=== PATIENT | female | born 1970 | race Caucasian/White ===

== ENCOUNTER 2017-09-17 16:52 | Inpatient (IN) ==
[2017-09-17] MEDS ORDERED: Ipratropium/Albuterol Neb 3 ML IH ONE (17:07)
[2017-09-17] MEDS ORDERED: *HR* OxyCODONE/APAP 5/325 TABLET PO ONE (17:10)
--- NOTE | 2017-09-17 17:12 | Emergency Department Note ---
Disposition Clinical Impression: Acute exacerbation of chronic obstructive airways disease Disposition: Admitted As Inpatient Condition: Fair Referrals: Modesto Dee DO [Primary Care Provider] - Forms: ED Satisfaction Letter Time of Disposition: 18:27 SOB HPI - General Chief Complaint: ED Shortness of Breath/Dyspnea Stated Complaint: Possible pneumonia Time Seen by Provider: 09/17/17 17:06 Source: patient Mode of arrival: wheelchair Limitations: no limitations Nursing Notes Reviewed: Yes Vital Signs Reviewed: Yes - History of Present Illness 47-year-old female who has a history of diabetes and COPD comes in with increasing wheezing cough congestion. She has had some wheezing. [facility] at [facility] and brought over directly for evaluation. Pt Subjective Complaint: shortness of breath, cough Onset (ago): day(s) Context: recent illness Severity: moderate Consistency/Duration: constant Improves with: nothing Worsens with: exertion Known history of: COPD Associated symptoms: Reports: fever, cough, wheezing Treatment prior to arrival: none Cough present: Yes Cough Description: Involuntary Cough Frequency: Intermittent Sputum production: Yes - Related Data Home Medications Medication Instructions Recorded Confirmed Calcium Carbonate/Vitamin D3 1 each PO BID 12/24/15 08/09/16 [Calcium 500-Vit D3 400 Tablet] Ferrous Sulfate 325 mg PO DAILY 12/24/15 08/09/16 Furosemide [Lasix] 40 mg PO DAILY 12/24/15 08/09/16 Gabapentin [Neurontin] 100 mg PO TID 12/24/15 08/09/16 Gemfibrozil [Lopid] 600 mg PO BIDWM 12/24/15 08/09/16 Oxybutynin [Ditropan] 5 mg PO BID 12/24/15 08/09/16 Ranitidine HCl [Zantac] 150 mg PO BID 12/24/15 08/09/16 Sertraline [Zoloft] 100 mg PO DAILY 12/24/15 08/09/16 Sitagliptin Phos/Metformin HCl 1 each PO BID 12/24/15 08/09/16 [Janumet Xr 50-1,000 mg Tablet] Buspirone HCl [Buspar] 10 mg PO BID 02/18/16 08/09/16 traZODone [TraZODone] 75 mg PO HS 02/18/16 08/09/16 Previous Rx's Medication Instructions Recorded Docusate [Colace] 100 mg PO DAILY #30 capsule 02/20/16 Ibuprofen [Motrin] 800 mg PO Q8HR #50 tablet 02/20/16 Albuterol Sulfate [Albuterol 2 puff IH Q6HR #1 hfa.aer.ad 08/10/16 Inhaler] Fluticasone/Salmeterol [Advair 1 each IH BID 30 Days blst.w.dev 08/10/16 250-50 Diskus] HYDROcodone/Acet 5/325 mg [[place] 1 tab PO Q6H PRN #20 tab 08/10/16 5-325 mg] Naproxen [Naprosyn] 500 mg PO BID PRN #20 tablet 08/22/16 Nitrofurantoin (BID) [Macrobid] 100 mg PO BID #14 capsule 10/15/16 Ketoconazole [Nizoral] 400 mg PO DAILY #14 tablet 12/01/16 Cyclobenzaprine [Flexeril] 10 mg PO TID #15 tablet 08/20/17 Promethazine [Phenergan] 25 mg PO Q6HR PRN #10 tablet 08/20/17 Allergies Allergy/AdvReac Type Severity Reaction Status Date / Time No Known Allergies Allergy Verified 09/17/17 16:58 All systems ED: reviewed and negative except as stated. Constitutional: Denies: fever, chills, weakness, weight change Eyes: Denies: eye pain, eye discharge, vision change ENT ED: Denies: ear pain, throat pain, dental pain, hearing loss, epistaxis, congestion, dysphagia Cardiovascular: Denies: chest pain, palpitations, dyspnea on exertion, edema, syncope Respiratory: Reports: cough, dyspnea. Denies: wheezes, hemoptysis, stridor Gastrointestinal: Denies: abdominal pain, nausea, vomiting, diarrhea, constipation, hematemesis, melena, hematochezia Genitourinary: Denies: dysuria, frequency, hematuria, discharge Musculoskeletal: Denies: back pain, neck pain, arthralgia, myalgia Integumentary: Denies: rash, abrasion, lesions Neurological: Denies: headache, weakness, numbness, paresthesias, confusion, abnormal gait, vertigo Psychiatric: Denies: anxiety, depression, suicidal thoughts, homicidal thoughts , auditory hallucinations, visual hallucinations Endocrine: Denies: fatigue Hematological/Lymphatic: Denies: easy bleeding, easy bruising Allergic/Immunologic: Denies: facial swelling, urticaria Past Medical History - Past Medical History Medical history: Reports: CHF, COPD, coronary artery disease, diabetes, hyperlipidemia, hypertension, other Surgical history: Reports: appendectomy, breast surgery (Right breast biopsy.), cholecystectomy, herniorrhaphy, sinus surgery (Tonsillectomy adenoidectomy. Teeth extractions.), other (Colonoscopy.) Psychiatric history: Reports: anxiety, depression, other OCCUPATIONAL HEALTH PHYSIOTHERAPIST history: Reports: no OCCUPATIONAL HEALTH PHYSIOTHERAPIST history - Social History Smoking Status: Current every day smoker Smokeless Tobacco Status: No Alcohol use: Reports: rarely Drug use: Reports: none Physical Exam - General Limitations: no limitations General appearance: alert - Head Head exam: atraumatic, normocephalic, normal inspection - Eye Eye exam: Present: normal appearance, PERRL, EOMI - ENT ENT exam: normal exam, normal oropharynx, mucous membranes moist - Neck Neck exam: Present: normal inspection, full ROM, trachea midline - Chest Chest inspection: Present: normal inspection, symmetric chest wall rise - Respiratory Respiratory exam: Present: respiratory distress, wheezes - Cardiovascular Cardiovascular exam: Present: regular rate, normal rhythm, normal heart sounds - Abdominal Exam Abdominal exam: Present: soft, Non-Tender. Absent: tenderness, distention, guarding, rebound, rigidity - Extremities Exam Extremities exam: Present: normal inspection, full ROM. Absent: tenderness, pedal edema - Expanded Lower Extremity Exam Gait: observed and normal - Back Exam Back exam: Present: normal inspection, full ROM. Absent: tenderness - Neurological Exam Neurological exam: Present: alert, oriented X3 - Psychiatric Psychiatric exam: Present: normal affect, normal mood - Skin Skin exam: Present: warm, dry, intact, normal color Course - Reevaluation(s) Reevaluation #1: 47-year-old with a history of COPD comes in with increasing shortness of breath. Patient was seen in the family doctor's office and brought straight over with audible wheezing on arrival. Chest x-ray was negative for pneumonia. Time: 18:25 - Consultations Consultation #1: Discussed with , admit Time: 18:26 Vital Signs Temperature 97.5 F L 09/17/17 16:53 Pulse Rate 94 09/17/17 16:53 Respiratory Rate 24 09/17/17 16:53 Blood Pressure 121/84 09/17/17 16:53 O2 Sat by Pulse Oximetry 97 09/17/17 16:53 Temperature 97.5 F L 09/17/17 16:53 Pulse Rate 88 09/17/17 17:17 Respiratory Rate 22 09/17/17 17:17 Blood Pressure 108/86 09/17/17 17:17 O2 Sat by Pulse Oximetry 98 09/17/17 17:17 Oxygen Delivery Oxygen Delivery Room Air Shortness of Breath/Dyspnea - Lab Data Lab results reviewed: Yes I reviewed the patient's lab results. Result diagrams: 09/17/17 17:31 09/17/17 17:31 Lab Results 09/17/17 09/17/17 09/17/17 Range/Units 17:31 17:31 17:31 WBC 9.1 (4.3-11.1) K/mcL RBC 4.58 (3.82-4.97) M/mcL Hgb 12.9 (11.5-15.4) g/dL Hct 40.9 (35.3-44.9) % MCV 89.3 (83.0-100.0) fL MCH 28.2 (28.0-33.3) pg MCHC 31.5 L (31.6-35.5) g/dL RDW 13.7 (11.5-14.5) % Plt Count 258 (140-400) K/mcL MPV 10.9 (9.4-12.4) fL Immature Gran % 0.3 (0-4) % Seg Neutrophils % 64.8 % Lymphocytes % 24.9 % Monocytes % 8.0 % Eosinophils % 1.6 % Basophils % 0.4 % Neutrophils # 5.9 (1.6-8.9) K/mcL Lymphocytes # 2.3 (0.6-4.6) K/mcL Monocytes # 0.7 (0.0-1.3) K/mcL Eosinophils # 0.2 (0.0-0.6) K/mcL Basophils # 0.0 (0.0-0.2) K/mcL Sodium 139 (136-145) mEq/L Potassium 3.9 (3.5-4.5) mEq/L Chloride 101 (98-109) mEq/L Carbon Dioxide 24 (19-29) mEq/L BUN 22 H (7-20) mg/dL Creatinine 0.88 (0.57-1.11) mg/dL Est GFR ( Amer) > 60 (> 60) Est GFR (Non-Af Amer) > 60 (> 60) BUN/Creatinine Ratio 25 (6-26) Glucose 152 H (70-99) mg/dL Calculated Osmolality 294 (280-300) Lactic Acid 1.5 (0.5-2.2) mmol/L Calcium 10.2 (8.6-10.8) mg/dL Troponin I (0-0.03) ng/mL B-Natriuretic Peptide (0-100) pg/mL 09/17/17 09/17/17 Range/Units 17:31 17:31 WBC (4.3-11.1) K/mcL RBC (3.82-4.97) M/mcL Hgb (11.5-15.4) g/dL Hct (35.3-44.9) % MCV (83.0-100.0) fL MCH (28.0-33.3) pg MCHC (31.6-35.5) g/dL RDW (11.5-14.5) % Plt Count (140-400) K/mcL MPV (9.4-12.4) fL Immature Gran % (0-4) % Seg Neutrophils % % Lymphocytes % % Monocytes % % Eosinophils % % Basophils % % Neutrophils # (1.6-8.9) K/mcL Lymphocytes # (0.6-4.6) K/mcL Monocytes # (0.0-1.3) K/mcL Eosinophils # (0.0-0.6) K/mcL Basophils # (0.0-0.2) K/mcL Sodium (136-145) mEq/L Potassium (3.5-4.5) mEq/L Chloride (98-109) mEq/L Carbon Dioxide (19-29) mEq/L BUN (7-20) mg/dL Creatinine (0.57-1.11) mg/dL Est GFR ( Amer) (> 60) Est GFR (Non-Af Amer) (> 60) BUN/Creatinine Ratio (6-26) Glucose (70-99) mg/dL Calculated Osmolality (280-300) Lactic Acid (0.5-2.2) mmol/L Calcium (8.6-10.8) mg/dL Troponin I 0.00 (0-0.03) ng/mL B-Natriuretic Peptide 51 (0-100) pg/mL - EKG Data EKG attestation: Yes I reviewed and interpreted this EKG. EKG shows normal: Reports: sinus rhythm Rate: Reports: normal Rhythm: Reports: NSR Interpretation: Reports: no acute changes
[2017-09-17 17:39] LABS: Basophils % 0.4 %; Eosinophils # 0.2 K/mcL (0.0-0.6); Eosinophils % 1.6 %; Hematocrit 40.9 % (35.3-44.9); Hemoglobin 12.9 g/dL (11.5-15.4); Immature Granulocytes % 0.3 % (0-4); Lymphocytes # 2.3 K/mcL (0.6-4.6); Lymphocytes % 24.9 %; Mean Corpuscular HGB Conc 31.5 g/dL (31.6-35.5); Mean Corpuscular Hemoglobin 28.2 pg (28.0-33.3); Mean Corpuscular Volume 89.3 fL (83.0-100.0); Mean Platelet Volume 10.9 fL (9.4-12.4); Monocytes # 0.7 K/mcL (0.0-1.3); Neutrophils # 5.9 K/mcL (1.6-8.9); Platelet Count 258 K/mcL (140-400); Red Blood Count 4.58 M/mcL (3.82-4.97); Red Cell Distribution Width 13.7 % (11.5-14.5); Segmented Neutrophils % 64.8 %
[2017-09-17 17:53] LABS: BUN/Creatinine Ratio 25 (6-26); Blood Urea Nitrogen 22 mg/dL (7-20); Calcium 10.2 mg/dL (8.6-10.8); Carbon Dioxide 24 mEq/L (19-29); Chloride 101 mEq/L (98-109); Glucose 152 mg/dL (70-99); Osmolality,Calculated 294 (280-300); Potassium 3.9 mEq/L (3.5-4.5); Sodium 139 mEq/L (136-145); eGFR For African Americans > 60 (> 60); eGFR For Non-African Americans > 60 (> 60)
[2017-09-17] MEDS ORDERED: methylPREDNISolone 125 MG/2 ML VIAL IVP ONE (18:25)
[2017-09-17] MEDS ORDERED: Ondansetron 4 MG/2 ML VIAL IVP PRN (22:02)
[2017-09-17] MEDS ORDERED: Naloxone 0.4 MG/ML INJ IVP PRN (22:02)
[2017-09-17] MEDS ORDERED: Acetaminophen 325 MG TABLET PO PRN (22:02)
[2017-09-17] MEDS ORDERED: Benzonatate 100 MG CAPSULE PO PRN (22:08)
[2017-09-17] MEDS ORDERED: Dextrose Gel 15 GM PO PRN ×2 (22:11)
[2017-09-17] MEDS ORDERED: D5% in Water 1,000 ML IVC PRN (22:11)
[2017-09-17] MEDS ORDERED: *HR* Dextrose 50 % in Water (Syg) 50 ML SYRINGE IVP PRN (22:11)
[2017-09-17] MEDS ORDERED: MOM Conc 10 ML UD.LIQ PO PRN (22:11)
[2017-09-17] MEDS ORDERED: traZODone 50 MG TABLET PO PRN (22:11)
[2017-09-17] MEDS ORDERED: Neosporin OINT 15 GM TUBE TP PRN (22:11)
[2017-09-17] MEDS ORDERED: Insulin LISPRO 300 UNITS/3 ML VIAL SQ SCH (22:15)
--- NOTE | 2017-09-17 22:59 | Internal Med History&Physical ---
Date of Encounter: 09/17/17 Time of Encounter: 20:30 Assessment and Plan (1) Acute exacerbation of chronic obstructive airways disease Current visit: Yes Status: Acute Acute exacerbation of COPD. Pt. reports previous hx of same sx of N/V, SOB, dyspnea, abdominal pain from coughing, cough. and diarrhea. Supplemental O2 w/ titration and SpO2 monitoring. DuoNebs Q4 scheduled. Solu-Medrol 60 mg every 8. Tessalon 200 mg 3 times a day for cough. Continuous cardiac telemetry. IVPB azithromycin for infection coverage. Patient to be monitored closely for signs of increasing respiratory and/or cardiac distress. Pt. is at high risk for respiratory distress/failure and further morbidity based on current sx, hx, and risk factors. Inpatient. (2) Cellulitis of both lower extremities Current visit: Yes Status: Chronic Patient presents with chronic bilateral cellulitis of LEs that is scabbing and in healing process. Erythema present. Wound culture ordered. Daily wound care. Wound Consult ordered. Will administer abx based on culture results and/or Wound Care consult directives. Stair-step pain medication for pain management. (3) HLD (hyperlipidemia) Current visit: Yes Status: Chronic Hx of chronic HLD. Lipid panel in a.m. labs. Continue Lopid. Qualifiers: Hyperlipidemia type: pure hypercholesterolemia Qualified Code(s): E78.00 - Pure hypercholesterolemia, unspecified; E78.0 - Pure hypercholesterolemia (4) HTN (hypertension) Current visit: Yes Status: Chronic Hx of chronic HTN. Pt. currently does not take HTN medications. Monitor patient' s vital signs. Will add lisinopril if patient becomes hypertensive. Qualifiers: Hypertension type: essential hypertension Qualified Code(s): I10 - Essential (primary) hypertension (5) CAD (coronary artery disease) Current visit: Yes Status: Chronic Hx of chronic CAD. Continuous cardiac telemetry. Will continue patient's aspirin therapy and Lopid. Qualifiers: Coronary Disease-Associated Artery/Lesion type: [place] artery [place] vs. transplanted heart: [place] heart Associated angina: angina presence unspecified Qualified Code(s): I25.10 - Atherosclerotic heart disease of [place] coronary artery without angina pectoris (6) GERD (gastroesophageal reflux disease) Current visit: Yes Status: Chronic Hx of chronic GERD. IVP Zofran every 8 when necessary. IVP Protonix 40 mg daily. Qualifiers: Esophagitis presence: esophagitis presence not specified Qualified Code(s) : K21.9 - Gastro-esophageal reflux disease without esophagitis (7) Type 2 diabetes mellitus Current visit: Yes Status: Chronic Hx of chronic diabetes controlled w/insulin. We will continue patient's at bedtime insulin and add low-dose correction insulin sliding scale with hypoglycemic protocol. BG checks before meals and at bedtime. A1c in a.m. labs Qualifiers: Diabetes mellitus complication status: with unspecified complications Diabetes mellitus fpc insulin use: without exterminator termite use Qualified Code( s): E11.8 - Type 2 diabetes mellitus with unspecified complications (8) DVT prophylaxis Current visit: Yes Status: Acute Heparin 5,000 units SQ Q8 for DVT prophylaxis. Internal Medicine - H&P: HPI Chief complaint: SOB/Dyspnea Admitted From: Emergency Dept Plans for Post Hospital Care: Home History of present illness: Ms. Paul is a 47 year old female with medical history of CHF, COPD, CAD, diabetes with insulin control, hyperlipidemia, and hypertension since from the ED with chief complaint of shortness of breath and dyspnea for the past week patient reports nausea, vomiting, shortness of breath, diarrhea, abdominal pain , and cough. Reports she has had same symptoms approximately a year ago. Patient states she is occurring every day smoker smoking 1-3 cigarettes daily and is trying to cut down and quit. Patient denies diarrhea, constipation, chest pain, palpitations, changes in vision, unusual bleeding, fever, chills, numbness, tingling, weakness, fatigue, dizziness, lightheadedness, pre-syncope, or syncope. Past Med Surg Social Fam HX - Past Medical History Source: patient, old records reviewed Medical history: CHF, COPD, coronary artery disease, diabetes, hyperlipidemia, hypertension, other Psychiatric history: anxiety, depression, other - Past Surgical History Surgical History: appendectomy, breast surgery, cholecystectomy, herniorrhaphy, sinus surgery, other - Social History Smoking Status: Current every day smoker Packs per day: 1-3 cigarettes daily Smokeless Tobacco Status: No Alcohol use: rarely Drug use: none Current living situation: Home Activity Level: Independent ambulation, Uses cane/walker Recent Out of Country Travel Within the Last 8 Weeks: No Exposure or Possible Exposure to Illness During Travel: No - Family History Mother Race: Family Member Ethnicity: Non- Living Status: Cause of : Throat cancer Hx Family Cancer: Yes (Throat) Father Race: Family Member Ethnicity: Non- Living Status: Cause of : Colon cancer Hx Family Cancer: Yes (Colon) Brother Race: Family Member Ethnicity: Non- Living Status: Cause of : Stomach cancer Hx Family Cancer: Yes (Stomach) Sister History Unknown: Yes Race: Family Member Ethnicity: Non- Living Status: Still Living Grandmother Race: Family Member Ethnicity: Non- Living Status: Cause of : CAD Hx Family Cardiac Disorders: Yes (CAD) Grandfather Race: Family Member Ethnicity: Non- Living Status: Cause of : NM Hx Family Cardiac Disorders: Yes (NM) Internal Medicine - H&P: Meds Ferrous Sulfate 325 mg PO DAILY 12/24/15 [History] Furosemide [Lasix] 40 mg PO DAILY 12/24/15 [History] Gabapentin [Neurontin] 100 mg PO TID 12/24/15 [History] Gemfibrozil [Lopid] 600 mg PO BIDWM 12/24/15 [History] Ranitidine HCl [Zantac] 150 mg PO BID 12/24/15 [History] Buspirone HCl [Buspar] 10 mg PO BID 02/18/16 [History] traZODone [TraZODone] 75 mg PO HS PRN 02/18/16 [History] Fluticasone/Salmeterol [Advair 250-50 Diskus] 1 each IH BID 30 Days blst.w.dev 08/10/16 [Rx] Acetaminophen [Tylenol] 500 mg PO Q4H PRN 09/17/17 [History] Albuterol Sulfate [Albuterol Inhaler] 2 puff IH Q6HR PRN 09/17/17 [History] Bismuth Subsalicylate [PEPTO-BISMOL (262mg/15mL) Susp] 30 ml PO Q4H PRN [History] Calcium Carbonate/Vitamin D3 [Calcium 600 + Vit D Tablet] 1 each PO BID [History] Chloraseptic [place] [Chloraseptic] 1 spray MM Q2H PRN 09/17/17 [History] Ergocalciferol (VITAMIN D2) [Vitamin D2] 50,000 unit PO WE 09/17/17 [History] GuaiFENesin/Dextromethorphan [Tussin Dm Syrup] 10 ml PO Q4H PRN 09/17/17 [ History] Ibuprofen [Motrin] 400 mg PO Q6H PRN 09/17/17 [History] Insulin Glargine [Lantus] 37 unit SQ HS 09/17/17 [History] Loperamide HCl [Imodium A-D] 2 mg PO PER PKG DI PRN 09/17/17 [History] Mag Hydrox/Al Hydrox/Simeth [Antacid Suspension] 30 ml PO ACHS PRN 09/17/17 [ History] Magnesium Hydroxide [Milk of Magnesia] 2,400 mg PO Q72H PRN 09/17/17 [History] Magnesium Oxide [Mag-Ox] 400 mg PO DAILY 09/17/17 [History] Metformin HCl [Metformin HCl ER] 1,000 mg PO DAILY 09/17/17 [History] Lucas/Poly/[place] OINT [Triple Antibiotic Ointment] 1 appl TP TID PRN 09/17/17 [ History] Potassium Chloride [Klor-Con 10] 10 meq PO DAILY 09/17/17 [History] Pseudoephedrine HCl [Sudafed] 30 mg PO Q12H PRN 09/17/17 [History] Sertraline [Zoloft] 200 mg PO DAILY 09/17/17 [History] 3 Allergy/AdvReac Type Severity Reaction Status Date / Time No Known Allergies Allergy Verified 09/17/17 16:58 All Systems PM: A 10-system review of systems was performed and is negative for pertinent findings except as documented above in the HPI. - Constitutional Constitutional: no chills, no fever(s), no night sweats - EENT Eyes: no change in vision, no discharge, no pain, no photophobia Ears: no ear discharge, no ear pain, no tinnitus Nose, mouth and throat: no dysphagia, no nasal discharge, no neck pain, no sore throat - Breasts Breasts: as per HPI - Cardiovascular Cardiovascular ROS IM: as per HPI, dyspnea, dyspnea on exertion - Respiratory Respiratory: as per HPI, cough, dyspnea, dyspnea on exertion, wheezing, pain with cough - Gastrointestinal Gastrointestinal: as per HPI, abdominal pain, nausea, vomiting - Genitourinary Genitourinary: no change in urinary stream, no dysuria, no flank pain, no hematuria Menstruation: as per HPI - Musculoskeletal Musculoskeletal ROS IM: no numbness, no tingling - Integumentary Integumentary IM: no rash, no unusual bruising - Neurological Neurological ROS: no confusion, no convulsions, no focal weakness, no numbness, no tingling, no tremor(s) - Psychiatric Psychiatric: as per HPI - Endocrine Endocrine IM: as per HPI - Hematologic/Lymphatic Hematologic/Lymphatic: no easy bruising - Allergic/Immunologic Allergic/Immunologic: as per HPI - Constitutional Vitals: Temp Pulse Resp BP Pulse Ox 97.6 F 89 20 95/64 94 09/17/17 21:25 09/17/17 21:25 09/17/17 21:25 09/17/17 21:25 09/17/17 22:43 General appearance: Present: cooperative, mild distress, A&O X 3, morbidly obese , pleasant, answers questions appropriately - Head Head exam: Present: atraumatic, normal inspection, normocephalic - Eye Eye exam: Present: PERRL, conjuntiva pink, sclera anicteric Pupils: Present: PERRL - ENT ENT exam: Present: normal exam, normal external ear exam - Neck Neck exam general surgery: Present: normal inspection, supple, trachea midline. Absent: lymphadenopathy - Respiratory Respiratory exam: Present: CTAB. Absent: accessory muscle use, rales, rhonchi, wheezes - Cardiovascular Cardiovascular exam: Present: RRR, +S1, +S2. Absent: diastolic murmur, gallop, rubs, systolic murmur - GI/Abdominal GI/Abdominal exam: Present: normal bowel sounds, soft, no peritoneal signs. Absent: distended, tenderness - Rectal Rectal exam: Present: deferred - Additional comments: exam deferred. - Extremities Exam Extremities exam: Present: pedal edema (Bialteral pedal edema with erythema and scabbed sores present from cellulitis), warm, radial pulses palpable and symmetrical. Absent: calf tenderness, cyanotic - Back Exam Back exam: Present: normal inspection - Neurological Exam Neurological exam: Present: CN II-XII intact, oriented X3, no focal deficits. Absent: pronater drift, facial droop, speech deficit - Psychiatric Psychiatric exam: Present: normal affect, normal mood - Skin Skin exam: Present: dry, intact Internal Med - H&P Results - Labs CBC & Chem 7: 09/17/17 17:31 09/17/17 17:31 - EKG Data EKG shows normal: sinus rhythm Rate: normal - EKG Data Prior EKG available for review: no Interpretation IM: normal EKG EKG comments: 09/17/17 23:08 EKG dated 09/17/17 shows sinus rhythm and normal ECG. - Diagnostic Studies Chest x-ray Additional comments: Impressions Chest X-Ray 09/17/17 17:07 IMPRESSION: Low lung volumes with no definite acute cardiopulmonary findings. D/ / Heaven Stacy MD / Heaven Stacy MD Interpreting Provider: Heaven Stacy MD
[2017-09-17] MEDS: methylPREDNISolone 125 MG/2 ML VIAL IVP SCH (23:01)
[2017-09-17] MEDS: Ipratropium/Albuterol Neb 3 ML IH SCH (23:01)
[2017-09-17] MEDS: *HR* HYDROcodone/Acet 5/325 mg TABLET PO PRN (23:06)
[2017-09-17] MEDS: *HR* Heparin 5,000 UNIT/ML VIAL SQ SCH (23:06)
[2017-09-17] MEDS ORDERED: *HR* Morphine 2 MG/ML SYRINGE IVP PRN (23:07)
[2017-09-17] MEDS ORDERED: Azithromycin 500 MG in D5% in Water 250 ML IVPB SCH (23:45)
[2017-09-18] MEDS: Pantoprazole 40 MG VIAL IVP SCH ×2 (02:00→08:02)
[2017-09-18] MEDS: Ipratropium/Albuterol Neb 3 ML IH SCH ×4 (03:44→16:57)
--- NOTE | 2017-09-18 03:54 | Event Note ---
Date of Encounter: 09/18/17 Time of Encounter: 11:00 Discussed with AMY and agree with assessment and plan. Shortness of breath/cough/wheezing secondary to COPD exacerbation and management as indicated by AMY. Patient also with bilateral lower extremity cellulitis with erosions; wound care consulted
[2017-09-18 04:54] LABS: Basophils % 0.2 %; Eosinophils % 0.3 %; Hematocrit 37.9 % (35.3-44.9); Lymphocytes # 0.5 K/mcL (0.6-4.6); Lymphocytes % 8.5 %; Mean Corpuscular HGB Conc 31.7 g/dL (31.6-35.5); Mean Corpuscular Hemoglobin 28.2 pg (28.0-33.3); Mean Platelet Volume 11.9 fL (9.4-12.4); Monocytes # 0.1 K/mcL (0.0-1.3); Monocytes % 2.2 %; Neutrophils # 5.5 K/mcL (1.6-8.9); Platelet Count 214 K/mcL (140-400); Red Blood Count 4.26 M/mcL (3.82-4.97); Red Cell Distribution Width 13.9 % (11.5-14.5); Segmented Neutrophils % 87.8 %
[2017-09-18 05:02] LABS: Hemoglobin A1C 10.8 %
[2017-09-18 05:18] LABS: Alanine Aminotransferase 13 Units/L (0-55); Albumin 3.2 g/dL (3.5-5.0); Albumin/Globulin Ratio 0.6 (1.1-2.2); Alkaline Phosphatase 181 Units/L (38-126); BUN/Creatinine Ratio 23 (6-26); Bilirubin,Total 0.2 mg/dL (0.2-1.2); Blood Urea Nitrogen 25 mg/dL (7-20); Calcium 9.2 mg/dL (8.6-10.8); Carbon Dioxide 24 mEq/L (19-29); Chloride 101 mEq/L (98-109); Chol/HDL Ratio 5.2 (0-4.9); Cholesterol 155 mg/dL (< 200); Glucose 402 mg/dL (70-99); HDL Cholesterol 30 mg/dL (40-59); Osmolality,Calculated 305 (280-300); Potassium 4.4 mEq/L (3.5-4.5); Sodium 137 mEq/L (136-145); Total Protein 8.2 g/dL (6.0-8.3); eGFR For African Americans > 60 (> 60); eGFR For Non-African Americans 54 (> 60)
[2017-09-18 05:20] LABS: Aspartate Amino Transferase 20 Units/L (5-34); Magnesium 2.3 mg/dL (1.6-2.6)
[2017-09-18 05:28] LABS: LDL Cholesterol,Calculated 90 mg/dL (0-99); Triglycerides 173 mg/dL (< 150)
[2017-09-18] MEDS: Insulin LISPRO 300 UNITS/3 ML VIAL SQ SCH ×3 (07:28→17:51)
[2017-09-18] MEDS: *HR* HYDROcodone/Acet 5/325 mg TABLET PO PRN ×2 (08:02→14:24)
[2017-09-18] MEDS: methylPREDNISolone 125 MG/2 ML VIAL IVP SCH ×2 (08:02→15:48)
[2017-09-18] MEDS: *HR* Heparin 5,000 UNIT/ML VIAL SQ SCH ×2 (08:02→15:48)
[2017-09-18] MEDS: Gabapentin 100 MG CAPSULE PO SCH ×2 (08:03→14:24)
--- NOTE | 2017-09-18 08:29 | Internal Med Progress Note ---
Date of Encounter: 09/18/17 Time of Encounter: 08:27 - Assessment and plan (1) Acute exacerbation of chronic obstructive airways disease Current Visit: Yes Status: Acute (2) Cellulitis of both lower extremities Current Visit: Yes Status: Chronic (3) Type 2 diabetes mellitus Current Visit: Yes Status: Chronic Qualifiers: Diabetes mellitus complication status: with unspecified complications Diabetes mellitus manager terminal insulin use: without halfway use Qualified Code( s): E11.8 - Type 2 diabetes mellitus with unspecified complications (4) HLD (hyperlipidemia) Current Visit: Yes Status: Chronic Qualifiers: Hyperlipidemia type: pure hypercholesterolemia Qualified Code(s): E78.00 - Pure hypercholesterolemia, unspecified; E78.0 - Pure hypercholesterolemia (5) HTN (hypertension) Current Visit: Yes Status: Chronic Qualifiers: Hypertension type: essential hypertension Qualified Code(s): I10 - Essential (primary) hypertension (6) Morbid obesity Current Visit: Yes Status: Acute - Subjective Interval history: Morbidly obese, noncompliant, smoker admitted for acute COPD exacerbation and bilateral cellulitis. Patient examined. Her lungs are clear.. She has chronic stasis dermatitis with skin discoloration and excoriation and some stage I bilateral leg wounds. Wound care will see her. We will switch her antibiotics to doxycycline. Patient is requesting to go home and does not want to stay any more. I think she can be given a trial of outpatient doxycycline and wound care to see if it helps. She will follow with her family doctor. - Constitutional Vitals: Temp Pulse Resp BP Pulse Ox 97.4 F L 82 20 117/69 93 09/18/17 06:43 09/18/17 06:43 09/18/17 06:43 09/18/17 06:43 09/18/17 06:43 General appearance: Present: cooperative, mild distress, A&O X 3, morbidly obese , pleasant, answers questions appropriately - Head Head exam: Present: atraumatic, normocephalic - Eye Eye exam: Present: PERRL, conjuntiva pink, sclera anicteric Pupils: Present: PERRL - Neck Neck exam general surgery: Present: supple, trachea midline. Absent: lymphadenopathy - Respiratory Respiratory exam: Present: CTAB. Absent: accessory muscle use, rales, rhonchi, wheezes - Cardiovascular Cardiovascular exam: Present: RRR, +S1, +S2. Absent: diastolic murmur, gallop, rubs, systolic murmur - GI/Abdominal GI/Abdominal exam: Present: normal bowel sounds, soft, no peritoneal signs. Absent: distended, tenderness - Extremities Exam Extremities exam: Present: pedal edema, warm, radial pulses palpable and symmetrical. Absent: calf tenderness, cyanotic Additional comments: Detail examination as per discharge summary. Bilateral lower extremity chronic venous status is and dermatitis with superficial stage I skin ulcers. Underlying tissue is oozing some blood and appears good quality. No purulent serosanguineous discharge noted. - Neurological Exam Neurological exam: Present: CN II-XII intact, oriented X3, no focal deficits. Absent: pronater drift, facial droop, speech deficit - Skin Skin exam: Present: dry, intact Internal Medicine: Result - Labs CBC & Chem 7: 09/18/17 03:19 09/18/17 03:19 Labs: Short CBC 09/18/17 Range/Units 03:19 WBC 6.2 (4.3-11.1) K/mcL Hgb 12.0 (11.5-15.4) g/dL Hct 37.9 (35.3-44.9) % Plt Count 214 (140-400) K/mcL Neutrophils # 5.5 (1.6-8.9) K/mcL BMP 09/18/17 03:19 Sodium 137 Potassium 4.4 Chloride 101 Carbon Dioxide 24 BUN 25 H Creatinine 1.09 Glucose 402 H Calcium 9.2 Liver Function 09/18/17 Range/Units 03:19 Total Bilirubin 0.2 (0.2-1.2) mg/dL AST 20 (5-34) Units/L ALT 13 (0-55) Units/L Alkaline Phosphatase 181 H (38-126) Units/L Albumin 3.2 L (3.5-5.0) g/dL Consult Discharge Plan - Plan Referrals: Modesto Dee DO [Primary Care Provider] -
[2017-09-18] MEDS ORDERED: Aspirin Enteric Coated 81 MG Tablet PO SCH (09:00)
[2017-09-18] MEDS ORDERED: Magnesium Oxide 400 MG TABLET PO SCH (09:00)
[2017-09-18] MEDS ORDERED: Furosemide 40 MG TABLET PO SCH (09:00)
[2017-09-18] MEDS ORDERED: Budesonide/Formoterol 80/4.5 MDI IH SCH (10:00)
--- NOTE | 2017-09-18 12:18 | Discharge Summary ---
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 Qualified Code( s): E11.8 - Type 2 diabetes mellitus with unspecified complications (4) HLD (hyperlipidemia) Priority: Secondary Status: Chronic Qualifiers: Hyperlipidemia type: pure hypercholesterolemia Qualified Code(s): E78.00 - Pure hypercholesterolemia, unspecified; E78.0 - Pure hypercholesterolemia (5) HTN (hypertension) Priority: Secondary Status: Chronic Qualifiers: Hypertension type: essential hypertension Qualified Code(s): I10 - Essential (primary) hypertension (6) Morbid obesity Priority: Secondary Status: Acute - Discharge Medications Prescriptions: Doxycycline 100 mg PO BID 10 Days #20 capsule Home Medications: Ferrous Sulfate 325 mg PO DAILY 12/24/15 [History] Furosemide [Lasix] 40 mg PO DAILY 12/24/15 [History] Gabapentin [Neurontin] 100 mg PO TID 12/24/15 [History] Gemfibrozil [Lopid] 600 mg PO BIDWM 12/24/15 [History] Ranitidine HCl [Zantac] 150 mg PO BID 12/24/15 [History] Buspirone HCl [Buspar] 10 mg PO BID 02/18/16 [History] traZODone [TraZODone] 75 mg PO HS PRN 02/18/16 [History] Fluticasone/Salmeterol [Advair 250-50 Diskus] 1 each IH BID 30 Days blst.w.dev 08/10/16 [Rx] Acetaminophen [Tylenol] 500 mg PO Q4H PRN 09/17/17 [History] Albuterol Sulfate [Albuterol Inhaler] 2 puff IH Q6HR PRN 09/17/17 [History] Bismuth Subsalicylate [PEPTO-BISMOL (262mg/15mL) Susp] 30 ml PO Q4H PRN [History] Calcium Carbonate/Vitamin D3 [Calcium 600 + Vit D Tablet] 1 each PO BID [History] Chloraseptic Hayti [Chloraseptic] 1 spray MM Q2H PRN 09/17/17 [History] Ergocalciferol (VITAMIN D2) [Vitamin D2] 50,000 unit PO WE 09/17/17 [History] GuaiFENesin/Dextromethorphan [Tussin Dm Syrup] 10 ml PO Q4H PRN 09/17/17 [ History] Ibuprofen [Motrin] 400 mg PO Q6H PRN 09/17/17 [History] Insulin Glargine [Lantus] 37 unit SQ HS 09/17/17 [History] Loperamide HCl [Imodium A-D] 2 mg PO PER PKG DI PRN 09/17/17 [History] Mag Hydrox/Al Hydrox/Simeth [Antacid Suspension] 30 ml PO ACHS PRN 09/17/17 [ History] Magnesium Hydroxide [Milk of Magnesia] 2,400 mg PO Q72H PRN 09/17/17 [History] Magnesium Oxide [Mag-Ox] 400 mg PO DAILY 09/17/17 [History] Metformin HCl [Metformin HCl ER] 1,000 mg PO DAILY 09/17/17 [History] Lucas/Poly/Donavan OINT [Triple Antibiotic Ointment] 1 appl TP TID PRN 09/17/17 [ History] Potassium Chloride [Klor-Con 10] 10 meq PO DAILY 09/17/17 [History] Pseudoephedrine HCl [Sudafed] 30 mg PO Q12H PRN 09/17/17 [History] Sertraline [Zoloft] 200 mg PO DAILY 09/17/17 [History] Doxycycline 100 mg PO BID 10 Days #20 capsule 09/18/17 [Rx] Allergies/Adverse Reactions: 3 Allergy/AdvReac Type Severity Reaction Status Date / Time No Known Allergies Allergy Verified 09/17/17 16:58 Date of admission: 09/17/17 23:24 Primary care physician: Modesto Dee DO Discharging clinician: Darlene Zhou Anticipated date of discharge: 09/18/17 - Patient Status Disposition: Home, Self-Care Condition: Fair Overall status at discharge: patient is progressing back to baseline - Discharge Instructions Follow Up With: Modesto Dee DO [Primary Care Provider] - 09/24/17 10:00 am - Diet and Activity Activity: resume usual activities as tolerated Diet: advance to your usual diet Hospital course: Ms. Paul is a 47 year old female Morbidly obese, noncompliant, smoker admitted for acute COPD exacerbation and bilateral cellulitis. Patient examined. Her lungs are clear.. She has chronic stasis dermatitis with skin discoloration and excoriation and some stage I bilateral leg wounds. Wound care will see her. We will switch her antibiotics to doxycycline. Patient is requesting to go home and does not want to stay any more. I think she can be given a trial of outpatient doxycycline and wound care to see if it helps. She will follow with her family doctor. Patient was advised that until her blood sugars are controlled we need to keep her and also need to arrange for a wound care consult before she can leave. However patient is in a hurry to leave. Her blood sugar were 448 this morning. She was notified for the possible risks and complications associated with it however patient decides to leave AMA. - Time Spent with Patient Total time spent providing and/or coordinating discharge services: Greater than 30 minutes - Constitutional Vitals: Temp Pulse Resp BP Pulse Ox 97.8 F 87 18 104/66 95 09/18/17 11:04 09/18/17 11:04 09/18/17 11:04 09/18/17 11:04 09/18/17 11:04 General appearance: Present: cooperative, mild distress, A&O X 3, morbidly obese , pleasant, answers questions appropriately - Head Head exam: Present: atraumatic, normocephalic - Eye Eye exam: Present: PERRL, conjuntiva pink, sclera anicteric Pupils: Present: PERRL - Neck Neck exam general surgery: Present: supple, trachea midline. Absent: lymphadenopathy - Respiratory Respiratory exam: Present: CTAB. Absent: accessory muscle use, rales, rhonchi, wheezes - Cardiovascular Cardiovascular exam: Present: RRR, +S1, +S2. Absent: diastolic murmur, gallop, rubs, systolic murmur - GI/Abdominal GI/Abdominal exam: Present: normal bowel sounds, soft, no peritoneal signs. Absent: distended, tenderness - Extremities Exam Extremities exam: Present: warm, radial pulses palpable and symmetrical. Absent : calf tenderness, cyanotic, pedal edema - Neurological Exam Neurological exam: Present: CN II-XII intact, oriented X3, no focal deficits. Absent: pronater drift, facial droop, speech deficit - Skin Skin exam: Present: dry, intact
[2017-09-18] MEDS ORDERED: Miconazole 2% cream 118 GM TUBE TP SCH (14:00)
[2017-09-18 14:46] VITALS: BP 110/62
[2017-09-18] MEDS ORDERED: Doxycycline 100 MG in 0.9 % Sodium Chloride Mini Bag 100 ML IVPB SCH (18:00)
--- NOTE | 2017-09-18 19:08 | Electrocardiograph Report ---
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
[2017-09-18] MEDS ORDERED: Insulin DETEMIR 100 UNIT/ML X5UNITS SQ SCH (21:00)
[2017-09-18] MEDS ORDERED: INSULIN GLARGINE SQ SCH (21:00)
== END 2017-09-18 18:15 | disposition home or self-care (01) | DRG 140 ==
LOC: 3BNU 16:52 → EMEROO 16:52 → 3BNU 21:28
PROVIDERS: ADMIT Nurse Practitioner Family; ATTEND Registered Nurse

== ENCOUNTER 2019-03-05 17:25 | Observation (INO) ==
[2019-03-05] MEDS ORDERED: *HR* Morphine Immed Rel 30 MG TABLET PO ONE (17:46)
--- NOTE | 2019-03-05 17:48 | Emergency Department Note ---
Disposition Clinical Impression: Right hip pain Disposition: Still a Patient Condition: Undetermined Referrals: Jet Mathur DO [Primary Care Provider] - Forms: ED Satisfaction Letter Time of Disposition: 18:46 General Adult HPI - General Chief complaint: ED Back Pain/Injury Stated complaint: lower back pain Time Seen by Provider: 03/05/19 17:37 Source: patient Limitations: altered mental status (RN reports that patient is alert to person and place but is on oriented to date or month) Nursing Notes Reviewed: Yes Vital Signs Reviewed: Yes - History of Present Illness HPI Narrative: 48-year-old female presenting for 2 day history of right sided hip and SI joint pain When asked to point where her greatest area of pain is located patient points to her right hip near the greater trochanter. Patient lives in extended care facility for weight loss therapy due to morbid obesity Patient denies any traumatic event Patient states her pain is not radiating Patient denies chest pain, shortness of breath, abdominal pain Likely musculoskeletal Onset (ago): day(s) Location: back, right Radiation: non-radiation Pain Severity: severe Pain Scale: 10 Quality: stabbing, sharp Consistency: Worsening Associated symptoms: Reports: denies other symptoms - Related Data Home Medications Medication Instructions Recorded Confirmed traZODone [TraZODone] 50 mg PO HS PRN 02/18/16 02/05/19 Albuterol Sulfate [Albuterol 2 puff IH Q6HR PRN 09/17/17 02/05/19 Inhaler] Bismuth Subsalicylate 30 ml PO Q4H PRN 09/17/17 02/05/19 [PEPTO-BISMOL (262mg/15mL) Susp] Ergocalciferol (VITAMIN D2) 50,000 unit PO WE 09/17/17 02/05/19 [Vitamin D2] Insulin Glargine [Lantus] 45 unit SQ HS 09/17/17 02/05/19 Magnesium Oxide [Mag-Ox] 400 mg PO DAILY 09/17/17 02/05/19 Sertraline [Zoloft] 200 mg PO DAILY 09/17/17 02/05/19 Atorvastatin [Lipitor] 20 mg PO HS 02/05/19 02/05/19 Insulin Regular U-500 [HumuLIN R 10 unit SQ TID 02/05/19 02/05/19 U-500] Insulin Regular, Human [Novolin R] 10 unit IJ QID 02/05/19 02/05/19 Lisinopril [Zestril] 10 mg PO DAILY 02/05/19 02/05/19 Oxybutynin [Ditropan] 5 mg PO DAILY 02/05/19 02/05/19 Oxybutynin [Ditropan] 10 mg PO HS 02/05/19 02/05/19 Topiramate [Topamax] 25 mg PO BID 02/05/19 02/05/19 risperiDONE [Risperdal] 2 mg PO HS 02/05/19 02/05/19 risperiDONE [Risperidone] 0.5 mg PO DAILY 02/05/19 02/05/19 Allergies Allergy/AdvReac Type Severity Reaction Status Date / Time No Known Allergies Allergy Verified 09/17/17 16:58 All systems ED: reviewed and negative except as stated. Review of Systems: As Per HPI Constitutional: Denies: fever, chills Cardiovascular: Denies: chest pain Respiratory: Denies: dyspnea Gastrointestinal: Reports: diarrhea. Denies: abdominal pain, nausea, vomiting, constipation, hematemesis, melena, hematochezia Genitourinary: Denies: hematuria Musculoskeletal: Reports: back pain. 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 Absent: scleral icterus - Neck Neck exam: Present: normal inspection, trachea midline. Absent: lymphadenopathy - Chest Chest inspection: Absent: normal inspection, symmetric chest wall rise - Respiratory Respiratory exam: Present: normal lung sounds bilaterally. Absent: respiratory distress, wheezes, stridor, accessory muscle use, prolonged expiratory phase - Cardiovascular Cardiovascular exam: Present: regular rate, normal rhythm, +S1, +S2. Absent: systolic murmur, diastolic murmur, JVD, +S3, +S4 - Abdominal Exam Abdominal exam: Present: soft, tenderness, normal bowel sounds. Absent: distention, guarding, rebound, rigidity, organomegaly Abdominal tenderness: Present: diffuse - Neurological Exam Neurological exam: Present: alert - Psychiatric Psychiatric exam: Present: anxious - Skin Skin exam: Present: warm, dry, intact, normal color. Absent: rash, cyanosis, diaphoresis, erythema, pallor, mottled Course Course Narrative: Basic labs and urinalysis to rule out infectious or metabolic etiology Vital Signs Temperature 98.5 F 03/05/19 17:33 Pulse Rate 59 03/05/19 17:33 Respiratory Rate 16 03/05/19 17:33 Blood Pressure 109/68 03/05/19 17:33 O2 Sat by Pulse Oximetry 92 03/05/19 17:33 Temperature 98.5 F 03/05/19 17:40 Pulse Rate 71 03/05/19 17:40 Respiratory Rate 15 03/05/19 17:40 Blood Pressure 109/68 03/05/19 17:40 O2 Sat by Pulse Oximetry 98 03/05/19 17:40 Oxygen Delivery Oxygen Delivery Room Air Medical Decision Making - MDM Narrative Medical decision making narrative: Patient laboratory shows acute kidney injury We will add CT scan abdomen and pelvis this time Patient signed out to the care of physicians Dr. Collins and Dr. Segundo Alcantar. Please see documentation by Dr. Collins and Dr. Alcantar for further evaluation, management, and final disposition. - Lab Data Lab results reviewed: Yes I reviewed the patient's lab results. Result diagrams: 03/05/19 18:10 03/05/19 18:10 Lab Results 03/05/19 03/05/19 Range/Units 18:10 18:10 WBC 9.2 (4.3-11.1) K/mcL RBC 4.36 (3.82-4.97) M/mcL Hgb 11.4 L (11.5-15.4) g/dL Hct 39.1 (35.3-44.9) % MCV 89.7 (83.0-100.0) fL MCH 26.1 L (28.0-33.3) pg MCHC 29.2 L (31.6-35.5) g/dL RDW 15.9 H (11.5-14.5) % Plt Count 218 (140-400) K/mcL MPV 10.6 (9.4-12.4) fL Immature Gran % 0.3 (0-4) % Seg Neutrophils % 67.1 % Lymphocytes % 23.4 % Monocytes % 7.3 % Eosinophils % 1.6 % Basophils % 0.3 % Neutrophils # 6.1 (1.6-8.9) K/mcL Lymphocytes # 2.1 (0.6-4.6) K/mcL Monocytes # 0.7 (0.0-1.3) K/mcL Eosinophils # 0.2 (0.0-0.6) K/mcL Basophils # 0.0 (0.0-0.2) K/mcL Sodium 134 L (136-145) mEq/L Potassium 3.5 (3.5-5.1) mEq/L Chloride 100 (98-107) mEq/L Carbon Dioxide 25 (23-29) mEq/L BUN 25 H (6-20) mg/dL Creatinine 1.40 H (0.60-1.20) mg/dL Est GFR ( Amer) 49 L (> 60) Est GFR (Non-Af Amer) 40 L (> 60) BUN/Creatinine Ratio 18 (6-26) Glucose 209 H (70-105) mg/dL Calculated Osmolality 289 (280-300) Calcium 9.0 (8.6-10.3) mg/dL
--- NOTE | 2019-03-05 17:50 | Emergency Department Note ---
Disposition Clinical Impression: Lumbar pain Disposition: Still a Patient Referrals: Jet Mathur DO [Primary Care Provider] - General Adult HPI - General Chief complaint: ED Back Pain/Injury Stated complaint: lower back pain Time Seen by Provider: 03/05/19 17:37 Source: patient Limitations: no limitations, altered mental status Nursing Notes Reviewed: Yes Vital Signs Reviewed: Yes - History of Present Illness HPI Narrative: ED attending attestation note: I examined this patient and my medical decision-making was reviewed with the emergency medicine resident Wagner Cuello. I agree with the documented findings, disposition and treatment plan as described except to the extent set forth below. Briefly: 48-year-old morbidly obese female 429 pounds by half-way facility for several complaints one is loose stools the other as she Toradol bleeding although not seeing any evidence thereof. She also has right lower back pain but no CVAT no midline pain no radiation to the legs no change bladder habits no recent trauma patient has not fallen. Patient will undergo some screening labs and urinalysis patient will get oral analgesics. Disposition pending. Pain Scale: 10 - Related Data Home Medications Medication Instructions Recorded Confirmed traZODone [TraZODone] 50 mg PO HS PRN 02/18/16 02/05/19 Albuterol Sulfate [Albuterol 2 puff IH Q6HR PRN 09/17/17 02/05/19 Inhaler] Bismuth Subsalicylate 30 ml PO Q4H PRN 09/17/17 02/05/19 [PEPTO-BISMOL (262mg/15mL) Susp] Ergocalciferol (VITAMIN D2) 50,000 unit PO WE 09/17/17 02/05/19 [Vitamin D2] Insulin Glargine [Lantus] 45 unit SQ HS 09/17/17 02/05/19 Magnesium Oxide [Mag-Ox] 400 mg PO DAILY 09/17/17 02/05/19 Sertraline [Zoloft] 200 mg PO DAILY 09/17/17 02/05/19 Atorvastatin [Lipitor] 20 mg PO HS 02/05/19 02/05/19 Insulin Regular U-500 [HumuLIN R 10 unit SQ TID 02/05/19 02/05/19 U-500] Insulin Regular, Human [Novolin R] 10 unit IJ QID 02/05/19 02/05/19 Lisinopril [Zestril] 10 mg PO DAILY 02/05/19 02/05/19 Oxybutynin [Ditropan] 5 mg PO DAILY 02/05/19 02/05/19 Oxybutynin [Ditropan] 10 mg PO HS 02/05/19 02/05/19 Topiramate [Topamax] 25 mg PO BID 02/05/19 02/05/19 risperiDONE [Risperdal] 2 mg PO HS 02/05/19 02/05/19 risperiDONE [Risperidone] 0.5 mg PO DAILY 02/05/19 02/05/19 Allergies Allergy/AdvReac Type Severity Reaction Status Date / Time No Known Allergies Allergy Verified 09/17/17 16:58 Past Medical History - Past Medical History Medical history: Reports: asthma, CHF, coronary artery disease, diabetes Surgical history: Reports: appendectomy, breast surgery, cholecystectomy, herniorrhaphy, sinus surgery, other Psychiatric history: Reports: anxiety, depression 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 history - Social History Smoking Status: Former smoker Smokeless Tobacco Status: No Alcohol use: Reports: none Drug use: Reports: none Physical Exam - General Limitations: altered mental status General appearance: alert Course Vital Signs Temperature 98.5 F 03/05/19 17:33 Pulse Rate 59 03/05/19 17:33 Respiratory Rate 16 03/05/19 17:33 Blood Pressure 109/68 03/05/19 17:33 O2 Sat by Pulse Oximetry 92 03/05/19 17:33 Temperature 98.5 F 03/05/19 17:40 Pulse Rate 71 03/05/19 17:40 Respiratory Rate 15 03/05/19 17:40 Blood Pressure 109/68 03/05/19 17:40 O2 Sat by Pulse Oximetry 98 03/05/19 17:40 Oxygen Delivery Oxygen Delivery Room Air
[2019-03-05 18:22] LABS: Basophils % 0.3 %; Eosinophils # 0.2 K/mcL (0.0-0.6); Eosinophils % 1.6 %; Hematocrit 39.1 % (35.3-44.9); Hemoglobin 11.4 g/dL (11.5-15.4); Immature Granulocytes % 0.3 % (0-4); Lymphocytes # 2.1 K/mcL (0.6-4.6); Lymphocytes % 23.4 %; Mean Corpuscular HGB Conc 29.2 g/dL (31.6-35.5); Mean Corpuscular Hemoglobin 26.1 pg (28.0-33.3); Mean Corpuscular Volume 89.7 fL (83.0-100.0); Mean Platelet Volume 10.6 fL (9.4-12.4); Monocytes # 0.7 K/mcL (0.0-1.3); Monocytes % 7.3 %; Neutrophils # 6.1 K/mcL (1.6-8.9); Platelet Count 218 K/mcL (140-400); Red Blood Count 4.36 M/mcL (3.82-4.97); Red Cell Distribution Width 15.9 % (11.5-14.5); Segmented Neutrophils % 67.1 %
[2019-03-05 18:39] LABS: Potassium 3.5 mEq/L (3.5-5.1)
--- NOTE | 2019-03-05 19:59 | Emergency Department Note ---
Disposition Clinical Impression: Right hip pain, Abnormal CT scan, Ovarian anomaly Abdominal pain Qualifiers: Abdominal location: right lower quadrant Qualified Code(s): R10.31 - Right lower quadrant pain UTI (urinary tract infection) Qualifiers: Urinary tract infection type: acute cystitis Hematuria presence: without hematuria Qualified Code(s): N30.00 - Acute cystitis without hematuria Disposition: Admitted As Inpatient Condition: Fair Referrals: Jet Mathur DO [Primary Care Provider] - Forms: ED Satisfaction Letter Time of Disposition: 23:31 General Adult HPI - General Chief complaint: ED Back Pain/Injury Stated complaint: lower back pain Time Seen by Provider: 03/05/19 17:37 Source: patient Limitations: altered mental status (RN reports that patient is alert to person and place but is on oriented to date or month) - History of Present Illness Location: back, right Pain Scale: 10 Quality: stabbing, sharp Associated symptoms: Reports: denies other symptoms - Related Data Home Medications Medication Instructions Recorded Confirmed traZODone [TraZODone] 50 mg PO HS PRN 02/18/16 02/05/19 Albuterol Sulfate [Albuterol 2 puff IH Q6HR PRN 09/17/17 02/05/19 Inhaler] Bismuth Subsalicylate 30 ml PO Q4H PRN 09/17/17 02/05/19 [PEPTO-BISMOL (262mg/15mL) Susp] Ergocalciferol (VITAMIN D2) 50,000 unit PO WE 09/17/17 02/05/19 [Vitamin D2] Insulin Glargine [Lantus] 45 unit SQ HS 09/17/17 02/05/19 Magnesium Oxide [Mag-Ox] 400 mg PO DAILY 09/17/17 02/05/19 Sertraline [Zoloft] 200 mg PO DAILY 09/17/17 02/05/19 Atorvastatin [Lipitor] 20 mg PO HS 02/05/19 02/05/19 Insulin Regular U-500 [HumuLIN R 10 unit SQ TID 02/05/19 02/05/19 U-500] Insulin Regular, Human [Novolin R] 10 unit IJ QID 02/05/19 02/05/19 Lisinopril [Zestril] 10 mg PO DAILY 02/05/19 02/05/19 Oxybutynin [Ditropan] 5 mg PO DAILY 02/05/19 02/05/19 Oxybutynin [Ditropan] 10 mg PO HS 02/05/19 02/05/19 Topiramate [Topamax] 25 mg PO BID 02/05/19 02/05/19 risperiDONE [Risperdal] 2 mg PO HS 02/05/19 02/05/19 risperiDONE [Risperidone] 0.5 mg PO DAILY 02/05/19 02/05/19 Allergies Allergy/AdvReac Type Severity Reaction Status Date / Time No Known Allergies Allergy Verified 09/17/17 16:58 Constitutional: Denies: fever, chills Cardiovascular: Denies: chest pain Respiratory: Denies: dyspnea Gastrointestinal: Reports: diarrhea. Denies: abdominal pain, nausea, vomiting, constipation, hematemesis, melena, hematochezia Genitourinary: Denies: hematuria Musculoskeletal: Reports: back pain. 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 HELPER history - Social History Smoking Status: Former smoker Smokeless Tobacco Status: No Alcohol use: Reports: none Drug use: Reports: none Physical Exam - General Limitations: altered mental status (RN reports that patient is alert to person and place but is on oriented to date or month) General appearance: alert Course Vital Signs Temperature 98.5 F 03/05/19 17:33 Pulse Rate 59 03/05/19 17:33 Respiratory Rate 16 03/05/19 17:33 Blood Pressure 109/68 03/05/19 17:33 O2 Sat by Pulse Oximetry 92 03/05/19 17:33 Temperature 98.5 F 03/05/19 17:40 Pulse Rate 68 03/05/19 23:11 Respiratory Rate 19 03/05/19 23:11 Blood Pressure 102/49 03/05/19 23:11 O2 Sat by Pulse Oximetry 93 03/05/19 23:11 Oxygen Delivery Oxygen Delivery Room Air Medical Decision Making - Lab Data Result diagrams: 03/05/19 18:10 03/05/19 18:10 Lab Results 03/05/19 03/05/19 03/05/19 Range/Units 18:10 18:10 20:16 WBC 9.2 (4.3-11.1) K/mcL RBC 4.36 (3.82-4.97) M/mcL Hgb 11.4 L (11.5-15.4) g/dL Hct 39.1 (35.3-44.9) % MCV 89.7 (83.0-100.0) fL MCH 26.1 L (28.0-33.3) pg MCHC 29.2 L (31.6-35.5) g/dL RDW 15.9 H (11.5-14.5) % Plt Count 218 (140-400) K/mcL MPV 10.6 (9.4-12.4) fL Immature Gran % 0.3 (0-4) % Seg Neutrophils % 67.1 % Lymphocytes % 23.4 % Monocytes % 7.3 % Eosinophils % 1.6 % Basophils % 0.3 % Neutrophils # 6.1 (1.6-8.9) K/mcL Lymphocytes # 2.1 (0.6-4.6) K/mcL Monocytes # 0.7 (0.0-1.3) K/mcL Eosinophils # 0.2 (0.0-0.6) K/mcL Basophils # 0.0 (0.0-0.2) K/mcL Sodium 134 L (136-145) mEq/L Potassium 3.5 (3.5-5.1) mEq/L Chloride 100 (98-107) mEq/L Carbon Dioxide 25 (23-29) mEq/L BUN 25 H (6-20) mg/dL Creatinine 1.40 H (0.60-1.20) mg/dL Est GFR ( Amer) 49 L (> 60) Est GFR (Non-Af Amer) 40 L (> 60) BUN/Creatinine Ratio 18 (6-26) Glucose 209 H (70-105) mg/dL Calculated Osmolality 289 (280-300) Lactic Acid (0.5-2.2) mmol/L Calcium 9.0 (8.6-10.3) mg/dL Urine Color Dark Yellow (Yellow) Urine Clarity Turbid A (Clear) Urine pH 5.5 (5.0-8.0) pH Units Ur Specific [place] 1.025 (1.010-1.025) Urine Protein 30 H (Neg-Trace) mg/dL Urine Glucose (UA) Normal (Normal) mg/dL Urine Ketones Trace H (Negative) mg/dL Urine Blood Negative (Negative) Urine Nitrite Positive A (Negative) Urine Bilirubin Small H (Negative) Urine Urobilinogen Normal (Normal) mg/dL Ur Leukocyte Esterase Large H (Negative) Urine Microscopic RBC 0-3 (0-3) per hpf Urine Microscopic WBC TNTC H (0-3) per hpf Ur Squamous Epith Cells Many H (None-Few) per lpf Urine Bacteria Many H (None-Few) per hpf Hyaline Casts None Seen (None-Few) per lpf Ur Culture Indicated? NO. A (NO) Ur C. trach DNA (PCR) (Not Detect) U N.gonorrhoeae DNA PCR (Not Detect) 03/05/19 03/05/19 Range/Units 20:22 20:26 WBC (4.3-11.1) K/mcL RBC (3.82-4.97) M/mcL Hgb (11.5-15.4) g/dL Hct (35.3-44.9) % MCV (83.0-100.0) fL MCH (28.0-33.3) pg MCHC (31.6-35.5) g/dL RDW (11.5-14.5) % Plt Count (140-400) K/mcL MPV (9.4-12.4) fL Immature Gran % (0-4) % Seg Neutrophils % % Lymphocytes % % Monocytes % % Eosinophils % % Basophils % % Neutrophils # (1.6-8.9) K/mcL Lymphocytes # (0.6-4.6) K/mcL Monocytes # (0.0-1.3) K/mcL Eosinophils # (0.0-0.6) K/mcL Basophils # (0.0-0.2) K/mcL Sodium (136-145) mEq/L Potassium (3.5-5.1) mEq/L Chloride (98-107) mEq/L Carbon Dioxide (23-29) mEq/L BUN (6-20) mg/dL Creatinine (0.60-1.20) mg/dL Est GFR ( Amer) (> 60) Est GFR (Non-Af Amer) (> 60) BUN/Creatinine Ratio (6-26) Glucose (70-105) mg/dL Calculated Osmolality (280-300) Lactic Acid 2.0 (0.5-2.2) mmol/L Calcium (8.6-10.3) mg/dL Urine Color (Yellow) Urine Clarity (Clear) Urine pH (5.0-8.0) pH Units Ur Specific [place] (1.010-1.025) Urine Protein (Neg-Trace) mg/dL Urine Glucose (UA) (Normal) mg/dL Urine Ketones (Negative) mg/dL Urine Blood (Negative) Urine Nitrite (Negative) Urine Bilirubin (Negative) Urine Urobilinogen (Normal) mg/dL Ur Leukocyte Esterase (Negative) Urine Microscopic RBC (0-3) per hpf Urine Microscopic WBC (0-3) per hpf Ur Squamous Epith Cells (None-Few) per lpf Urine Bacteria (None-Few) per hpf Hyaline Casts (None-Few) per lpf Ur Culture Indicated? (NO) Ur C. trach DNA (PCR) NOT DETECTED (Not Detect) U N.gonorrhoeae DNA PCR NOT DETECTED (Not Detect) Attestation Statement - Attestation Attestation: I, Fan Collins DO, examined this patient [id number] and my medical decision-making was reviewed with Dr. Segundo Wilkerson, Resident Physician. I agree with the documented findings, disposition and treatment plan as described except to the extent set forth below. I personally supervised and was present for the matos/critical portions of the procedures completed by the resident documented below. Please see my progress notes for details. 48-year-old female received in sign out from the daytime physician Dr. Niels Mendez. Detailed review the presentation symptoms medical history were discussed. Patient is presenting for right-sided flank pain and abdominal discomfort similar to when she said urinary tract infections or kidney stones in the past. Patient does have MRDD and is morbidly obese. She denies any chest pain or shortness of breath. She does not have any nausea vomiting or diarrhea. No fevers no chills at this time. Vital signs are reviewed and are unrema rkable this point. Labs do show slight renal insufficiency secondary to possible decreased by mouth intake. CT imaging of the abdomen along with repeat dose of pain medication was ordered by myself secondary to the concern for the pain renal colic or intra-abdominal etiology to the patient's presentation this time. Disposition will be determined once the remainder the workup has been established. Lungs are clear heart is regular. Abdomen is soft but her examination is very subjective secondary to the patient's body habitus and obesity. Workup will be completed and disposition determined. Patient is otherwise stable. See detailed documentation the previous providers notes as well as the repeat documentation of this time. We will monitor here until treatment course is established 1939 CT scan is concerning for tubo-ovarian abscess in the left adnexa. The on-call gynecologic physician Dr. Briggs reviewed the case and is considering this is either a cyst versus TOA. Ultrasound was requested this time. Antibiotic regimen was ordered. Patient will have blood cultures and lactic acid at this time. Pain medication as been provided. Disposition pending imaging 2214 Patient has negative ultrasound of the abdomen at this time. No signs of cyst or tubo-ovarian abscess is noted. Conversation was had with the final cleaner environmental epidemiologist again for recommendations. At this time disposition will most likely be admission for IV antibiotics and treatment of possible tubo-ovarian abscess urinary tract infection. Serial abdominal examinations will be recommended. The on-call final cleaner reviewed the case and did not feel there is anything from a surgical standpoint to be noted at this point. We will admit for treatment of urinary tract infection admission the patient does not progressive symptoms or has any clinical change. Hospitalist has been paged at this time for admission. 2315 Patient was discussed with the hospitalist Dr. Esparza. Review the recommendations and thought processes from the gynecology team. He will admit the patient for IV antibiotics and serial examination and consultation as needed. Patient is otherwise stable without here. Pain is been controlled. No acute findings are concerning for systemic infection at this point. Patient is concerning secondary to her long-standing history of mental delay as well as the presenting physical exam and findings on CT scan. Patient is stable. Patient will be monitored here in the emergency department until the admission process is completed.
[2019-03-05] MEDS ORDERED: *HR* FentaNYL (PF) 100 MCG/2 ML VIAL IVP ONE (20:02)
[2019-03-05] MEDS ORDERED: *HR* OxyCODONE/APAP 5/325 TABLET PO ONE (20:11)
[2019-03-05] MEDS ORDERED: Doxycycline 100 MG in 0.9 % Sodium Chloride Mini Bag 100 ML IVPB ONE (20:23)
[2019-03-05 20:24] LABS: Bilirubin,Urine Small (Negative); Blood,Urine Negative (Negative); Clarity,Urine Turbid (Clear); Color,Urine Dark Yellow (Yellow); Glucose,Urine (UA) Normal (Normal); Ketones,Urine Trace mg/dL (Negative); Leukocyte Esterase,Urine Large (Negative); Nitrite,Urine Positive (Negative); PH,Urine 5.5 pH Units (5.0-8.0); Protein,Urine 30 mg/dL (Neg-Trace); Specific Gravity,Urine 1.025 (1.010-1.025); Urobilinogen,Urine Normal (Normal)
[2019-03-05] MEDS ORDERED: cefOXitin 2,000 MG in Water for inj. (sterile) 20 ML 20 ML IVP STA (20:25)
[2019-03-05 20:26] LABS: Bacteria,Urine Many per hpf (None-Few); Squamous Epithelial Cell,Urine Many per lpf (None-Few); WBC,Urine TNTC per hpf (0-3)
[2019-03-05 20:34] LABS: Hyaline Casts,Urine None Seen per lpf (None-Few); RBC,Urine 0-3 per hpf (0-3)
[2019-03-05] MEDS ORDERED: *HR* HYDROmorphone (PF) 1 MG/ML SYRINGE ONE (20:52)
[2019-03-05] MEDS ORDERED: *HR* HYDROmorphone (PF) 1 MG/ML SYRINGE IVP ONE (21:00)
--- NOTE | 2019-03-05 21:40 | Emergency Department Note ---
Disposition Clinical Impression: Right hip pain, Ovarian anomaly UTI (urinary tract infection) Qualifiers: Urinary tract infection type: acute cystitis Hematuria presence: without hematuria Qualified Code(s): N30.00 - Acute cystitis without hematuria Abdominal pain Qualifiers: Abdominal location: right lower quadrant Qualified Code(s): R10.31 - Right lower quadrant pain Disposition: Admitted As Inpatient Condition: Undetermined Referrals: Jet Mathur DO [Primary Care Provider] - Forms: ED Satisfaction Letter General Adult HPI - General Chief complaint: ED Back Pain/Injury Stated complaint: lower back pain Time Seen by Provider: 03/05/19 17:37 Source: patient Limitations: altered mental status (RN reports that patient is alert to person and place but is on oriented to date or month) Nursing Notes Reviewed: Yes Vital Signs Reviewed: Yes - History of Present Illness Location: back, right Pain Scale: 10 Quality: stabbing, sharp Associated symptoms: Reports: denies other symptoms - Related Data Home Medications Medication Instructions Recorded Confirmed traZODone [TraZODone] 50 mg PO HS PRN 02/18/16 02/05/19 Albuterol Sulfate [Albuterol 2 puff IH Q6HR PRN 09/17/17 02/05/19 Inhaler] Bismuth Subsalicylate 30 ml PO Q4H PRN 09/17/17 02/05/19 [PEPTO-BISMOL (262mg/15mL) Susp] Ergocalciferol (VITAMIN D2) 50,000 unit PO WE 09/17/17 02/05/19 [Vitamin D2] Insulin Glargine [Lantus] 45 unit SQ HS 09/17/17 02/05/19 Magnesium Oxide [Mag-Ox] 400 mg PO DAILY 09/17/17 02/05/19 Sertraline [Zoloft] 200 mg PO DAILY 09/17/17 02/05/19 Atorvastatin [Lipitor] 20 mg PO HS 02/05/19 02/05/19 Insulin Regular U-500 [HumuLIN R 10 unit SQ TID 02/05/19 02/05/19 U-500] Insulin Regular, Human [Novolin R] 10 unit IJ QID 02/05/19 02/05/19 Lisinopril [Zestril] 10 mg PO DAILY 02/05/19 02/05/19 Oxybutynin [Ditropan] 5 mg PO DAILY 02/05/19 02/05/19 Oxybutynin [Ditropan] 10 mg PO HS 02/05/19 02/05/19 Topiramate [Topamax] 25 mg PO BID 02/05/19 02/05/19 risperiDONE [Risperdal] 2 mg PO HS 02/05/19 02/05/19 risperiDONE [Risperidone] 0.5 mg PO DAILY 02/05/19 02/05/19 Allergies Allergy/AdvReac Type Severity Reaction Status Date / Time No Known Allergies Allergy Verified 09/17/17 16:58 Constitutional: Denies: fever, chills Cardiovascular: Denies: chest pain Respiratory: Denies: dyspnea Gastrointestinal: Reports: diarrhea. Denies: abdominal pain, nausea, vomiting, constipation, hematemesis, melena, hematochezia Genitourinary: Denies: hematuria Musculoskeletal: Reports: back pain. 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 Absent: respiratory distress, accessory muscle use - Cardiovascular Cardiovascular exam: Present: normal rhythm, bradycardia - Abdominal Exam Abdominal exam: Present: soft, tenderness. Absent: distention, guarding, brittney ound Abdominal tenderness: Present: RLQ - Extremities Exam Extremities exam: Present: normal capillary refill - Back Exam Back exam: Present: full ROM - Neurological Exam Neurological exam: Present: alert, oriented X3 - Psychiatric Psychiatric exam: Present: normal affect, normal mood - Skin Skin exam: Present: warm, dry, intact. Absent: rash Course Vital Signs Temperature 98.5 F 03/05/19 17:33 Pulse Rate 59 03/05/19 17:33 Respiratory Rate 16 03/05/19 17:33 Blood Pressure 109/68 03/05/19 17:33 O2 Sat by Pulse Oximetry 92 03/05/19 17:33 Temperature 98.5 F 03/05/19 17:40 Pulse Rate 68 03/05/19 23:11 Respiratory Rate 19 03/05/19 23:11 Blood Pressure 102/49 03/05/19 23:11 O2 Sat by Pulse Oximetry 93 03/05/19 23:11 Oxygen Delivery Oxygen Delivery Room Air Medical Decision Making - MDM Narrative Medical decision making narrative: This was a sign out to me from the day team. Refer to previous notes for history of present illness, physical exam, medical decision-making. 48-year-old female with right flank and right lower quadrant abdominal pain. Patient had a mild acute kidney injury. We did a CT scan of abdomen and pelvis which revealed possible left tubo-ovarian abscess as well as an IUD that is possibly extending into the myometrium. Spoke with Dr. Briggs, diabetes TRANSFUSION AIDE coater carbon paper. She stated follow-up on the pelvic ultrasound. Lacitc acid, blood cultures were obtained. We started this cefoxitin as well as doxycycline. I spoke with OB-TRANSFUSION AIDE, Dr. Briggs who requested to obtain a formal pelvic ultrasound. Pelvic ultrasound did not reveal good view of the ovary secondary to excessive bowel gas. I spoke with Dr. Briggs again regarding patient as the pelvic ultrasound was not conclusive. She stated that without a white count and fever, the possible left tubo-ovarian abscess was most likely just an ovarian cyst. I asked for her to possibly admit the patient for observation overnight. She states stated that this would be a candidate for home and if I decided to admit the patient to the hospitalist, to consult them if her abdominal pain worsened or if she developed fever. Patient with elements of mental retardation that are concerning from an outpatient standpoint if her condition was to worsen. Dr. Esparza agreed to admit the patient. I will provide the patient with Keflex at this time to treat urinary tract infection as urine has nitrites, bacteria, white blood cells, s victorino OB felt that this was likely not a tuboovarian abscess. Chlamydia and gonorrhea were negative. Patient hemodynamically stable, abdomen non-peritoneal at time of admission Abdomen/Pelvis CT 03/05/19 18:42 IMPRESSION: Gas and fluid collection centered in the left adnexal space, most compatible with a tubo-ovarian abscess. Gynecologic consultation recommended. IUD is noted within the myometrium, and the rightward aspect of the IUD may be extending into the myometrium, and therefore myometrial invasion is a concern. Gynecologic consultation is again recommended. D/ / Clovis Welch MD / Clovis Welch MD Interpreting Provider: Clovis Welch MD - Lab Data Result diagrams: 03/05/19 18:10 03/05/19 18:10 Lab Results 03/05/19 03/05/19 03/05/19 Range/Units 18:10 18:10 20:16 WBC 9.2 (4.3-11.1) K/mcL RBC 4.36 (3.82-4.97) M/mcL Hgb 11.4 L (11.5-15.4) g/dL Hct 39.1 (35.3-44.9) % MCV 89.7 (83.0-100.0) fL MCH 26.1 L (28.0-33.3) pg MCHC 29.2 L (31.6-35.5) g/dL RDW 15.9 H (11.5-14.5) % Plt Count 218 (140-400) K/mcL MPV 10.6 (9.4-12.4) fL Immature Gran % 0.3 (0-4) % Seg Neutrophils % 67.1 % Lymphocytes % 23.4 % Monocytes % 7.3 % Eosinophils % 1.6 % Basophils % 0.3 % Neutrophils # 6.1 (1.6-8.9) K/mcL Lymphocytes # 2.1 (0.6-4.6) K/mcL Monocytes # 0.7 (0.0-1.3) K/mcL Eosinophils # 0.2 (0.0-0.6) K/mcL Basophils # 0.0 (0.0-0.2) K/mcL Sodium 134 L (136-145) mEq/L Potassium 3.5 (3.5-5.1) mEq/L Chloride 100 (98-107) mEq/L Carbon Dioxide 25 (23-29) mEq/L BUN 25 H (6-20) mg/dL Creatinine 1.40 H (0.60-1.20) mg/dL Est GFR ( Amer) 49 L (> 60) Est GFR (Non-Af Amer) 40 L (> 60) BUN/Creatinine Ratio 18 (6-26) Glucose 209 H (70-105) mg/dL Calculated Osmolality 289 (280-300) Lactic Acid (0.5-2.2) mmol/L Calcium 9.0 (8.6-10.3) mg/dL Urine Color Dark Yellow (Yellow) Urine Clarity Turbid A (Clear) Urine pH 5.5 (5.0-8.0) pH Units Ur Specific [place] 1.025 (1.010-1.025) Urine Protein 30 H (Neg-Trace) mg/dL Urine Glucose (UA) Normal (Normal) mg/dL Urine Ketones Trace H (Negative) mg/dL Urine Blood Negative (Negative) Urine Nitrite Positive A (Negative) Urine Bilirubin Small H (Negative) Urine Urobilinogen Normal (Normal) mg/dL Ur Leukocyte Esterase Large H (Negative) Urine Microscopic RBC 0-3 (0-3) per hpf Urine Microscopic WBC TNTC H (0-3) per hpf Ur Squamous Epith Cells Many H (None-Few) per lpf Urine Bacteria Many H (None-Few) per hpf Hyaline Casts None Seen (None-Few) per lpf Ur Culture Indicated? NO. A (NO) Ur C. trach DNA (PCR) (Not Detect) U N.gonorrhoeae DNA PCR (Not Detect) 03/05/19 03/05/19 Range/Units 20:22 20:26 WBC (4.3-11.1) K/mcL RBC (3.82-4.97) M/mcL Hgb (11.5-15.4) g/dL Hct (35.3-44.9) % MCV (83.0-100.0) fL MCH (28.0-33.3) pg MCHC (31.6-35.5) g/dL RDW (11.5-14.5) % Plt Count (140-400) K/mcL MPV (9.4-12.4) fL Immature Gran % (0-4) % Seg Neutrophils % % Lymphocytes % % Monocytes % % Eosinophils % % Basophils % % Neutrophils # (1.6-8.9) K/mcL Lymphocytes # (0.6-4.6) K/mcL Monocytes # (0.0-1.3) K/mcL Eosinophils # (0.0-0.6) K/mcL Basophils # (0.0-0.2) K/mcL Sodium (136-145) mEq/L Potassium (3.5-5.1) mEq/L Chloride (98-107) mEq/L Carbon Dioxide (23-29) mEq/L BUN (6-20) mg/dL Creatinine (0.60-1.20) mg/dL Est GFR ( Amer) (> 60) Est GFR (Non-Af Amer) (> 60) BUN/Creatinine Ratio (6-26) Glucose (70-105) mg/dL Calculated Osmolality (280-300) Lactic Acid 2.0 (0.5-2.2) mmol/L Calcium (8.6-10.3) mg/dL Urine Color (Yellow) Urine Clarity (Clear) Urine pH (5.0-8.0) pH Units Ur Specific [place] (1.010-1.025) Urine Protein (Neg-Trace) mg/dL Urine Glucose (UA) (Normal) mg/dL Urine Ketones (Negative) mg/dL Urine Blood (Negative) Urine Nitrite (Negative) Urine Bilirubin (Negative) Urine Urobilinogen (Normal) mg/dL Ur Leukocyte Esterase (Negative) Urine Microscopic RBC (0-3) per hpf Urine Microscopic WBC (0-3) per hpf Ur Squamous Epith Cells (None-Few) per lpf Urine Bacteria (None-Few) per hpf Hyaline Casts (None-Few) per lpf Ur Culture Indicated? (NO) Ur C. trach DNA (PCR) NOT DETECTED (Not Detect) U N.gonorrhoeae DNA PCR NOT DETECTED (Not Detect) - EKG Data EKG #1 EKG attestation: Yes I reviewed and interpreted this EKG. Attestation Statement - Attestation Attestation: I, Fan Collins DO, examined this patient [id number] and my medical decision-making was reviewed with Dr. Segundo Wilkerson, Resident Physician. I agree with the documented findings, disposition and treatment plan as described except to the extent set forth below. I personally supervised and was present for the matos/critical portions of the procedures completed by the resident documented below. Please see my progress notes for details.
[2019-03-05 22:09] LABS: Chlamydia Trachomatis DNA Ur NOT DETECTED (Not Detect)
[2019-03-05] MEDS ORDERED: cephALEXin 250 MG CAPSULE PO STA (23:01)
[2019-03-05] MEDS ORDERED: 0.9 % Sodium Chloride 1,000 ML IVC ONE (23:22)
[2019-03-06] MEDS ORDERED: Ondansetron 4 MG/2 ML VIAL IVP PRN (00:51)
[2019-03-06] MEDS ORDERED: Dextrose Gel 15 GM/37.5 ML TUBE PO PRN ×2 (00:51)
[2019-03-06] MEDS ORDERED: *HR* Dextrose 50 % in Water (Syg) 50 ML SYRINGE IVP PRN (00:51)
[2019-03-06] MEDS ORDERED: Acetaminophen 325 MG TABLET PO PRN (00:51)
[2019-03-06] MEDS ORDERED: traZODone 50 MG TABLET PO PRN (00:52)
[2019-03-06] MEDS ORDERED: Bismuth Subsalicylate 120 ML ORAL SUSPENSION PO PRN (00:52)
[2019-03-06] MEDS ORDERED: Insulin DETEMIR 100 UNIT/ML X5UNITS SQ ONE (01:11)
--- NOTE | 2019-03-06 01:19 | Internal Med History&Physical ---
Date of Encounter: 03/06/19 Time of Encounter: 01:17 Internal Medicine - H&P: HPI Chief complaint: hip pain Admitted From: Home Plans for Post Hospital Care: Home History of present illness: Sara Paul is a 48 -year-old morbidly obese woman with diabetes, hypertension, hyperlipidemia, coronary artery disease and MRDD who lives in an extended care facility presents to the emergency room complaining of right sided hip and pelvic pain for 2 days. She denied any traumatic event, no radiation, no associated nausea, vomiting or dysuria. She described it as sharp and stabbing with worsening intensity. Vitals and labs were within normal limits. CT scan done was concerning for gas and fluid collection centered in the left adnexal space compatible with tubo-ovarian abscess. I reviewed the images and could appreciate a 5x4cm left hemipelvic mass collection. Carrier Loader was contacted and recommended a pelvic ultrasound. The findings were inconclusive likely due to her adiposity. The method consultant was gain contacted who reported that it was probably a cyst and did not require admission as the patient was afebrile and without leukocytosis. The concern however is that with the patients developmental disability, her follow up and reporting of complaints may not be accurate and therefore it was decided she be observed under our service. She was given cefoxitin and doxycycline, requiring hydromorphone, fentanyl and oxycodone to achieve pain relief. Vitals: Reviewed General: Morbidly obese woman lying in bed in NAD Skin: Dry, warm. HEENT: Dry mucous membranes. No conjunctivae pallor. Neck: Short and thick. Chest: Diminished thoracic expansion. Normal breath sounds. Heart: Normal S1 & S2; rhythmic. No rubs or murmurs. Abdomen: Globulous, soft and non-tender to palpation. No peritoneal reaction. Extremities: Edematous with hyperpigmentation of venous stasis. Neurological: Awake, alert and oriented to person, place and time. No focal deficits. Psych: Affect appropriate. Assessment/Plan Left hemipelvic mass: Concerning for a TOA? She will need a repeat pelvic ultrasound for evaluation and gynecologic exam. Unclear if this is an incidental finding or if this is causing referred pain to her right side instead of the left as right hip pain seems to have been her original complaint. She has no systemic signs of illness such as leukocytosis or fever however the collection is evident but of uncertain etiology. Blood cultures have been obtained. Will place her on empiric ampicillin/sulbactam with doxycycline empirically until we can ascertain what this collection is. Will consult gynecology for evaluation. Right hip pain: No signs of musculoskeletal disease on CT. Could it be referred pain? Analgesics prn. Acute kidney injury: Stage 2. She reports decreased oral intake for the past couple of days in which she has felt unwell. Will give her fluid resuscitation and recheck. Hyponatremia: Mild. Likely hypovolemic. Mgmt. as above. Diabetes: Will place on insulin sliding scale. Past Med Surg Social Fam HX - Past Medical History Medical history: asthma, CHF, coronary artery disease, diabetes Additional medical history: blood dyscrasia- states "I bleed a lot" Psychiatric history: anxiety, depression - Past Surgical History Surgical History: appendectomy, breast surgery, cholecystectomy, herniorrhaphy, sinus surgery, other Additional surgical history: UMBILICAL HERNIA. T&A. R BREAST BIOPSY. TOOTH EXTRACTIONS. APPENDIX - Social History Smoking Status: Former smoker Smokeless Tobacco Status: No Alcohol use: none Drug use: none - Family History Father Family Member Ethnicity: Non- Living Status: Age at : 40 Cause of : Colon CA Hx Family Cardiac Disorders: No Hx Family Respiratory Disorders: No Hx Family Cancer: Yes (Colon) Hx Family GI Disorders: No Hx Family Genitourinary Disorders: No Hx Family Endocrine Disorder: No Hx Family Musculoskeletal Disorders: No Hx Family Neuromuscular Disorders: No Hx Family Neurologic Disorders: No Hx Family Autoimmune Disorders: No Hx Family Reproductive Disorders: No Hx Family Psychosocial Disorders: No Hx Family Medical Disorders: No Brother Family Member Ethnicity: Non- Living Status: Cause of : Stomach CA Hx Family Cardiac Disorders: No Hx Family Respiratory Disorders: No Hx Family Cancer: Yes (Stomach CA) Hx Family GI Disorders: No Hx Family Genitourinary Disorders: No Hx Family Endocrine Disorder: No Hx Family Musculoskeletal Disorders: No Hx Family Neuromuscular Disorders: No Hx Family Neurologic Disorders: No Hx Family HEENT Disorders: No Hx Family Autoimmune Disorders: No Hx Family Reproductive Disorders: No Hx Family Psychosocial Disorders: No Hx Family Medical Disorders: No Sister Family Member Ethnicity: Non- Living Status: Still Living Grandmother Family Member Ethnicity: Non- Living Status: Age at : 53 Cause of : MA Hx Family Cardiac Disorders: Yes (MA and HTN) Hx Family Respiratory Disorders: No Hx Family Cancer: No Hx Family GI Disorders: No Hx Family Genitourinary Disorders: No Hx Family Endocrine Disorder: Yes (DM) Hx Family Musculoskeletal Disorders: No Hx Family Neuromuscular Disorders: No Hx Family Neurologic Disorders: No Hx Family HEENT Disorders: No Hx Family Autoimmune Disorders: No Hx Family Reproductive Disorders: No Hx Family Psychosocial Disorders: No Hx Family Medical Disorders: No Grandfather Family Member Ethnicity: Non- Living Status: Cause of : MA Hx Family Cardiac Disorders: Yes (MA) Hx Family Respiratory Disorders: No Hx Family Cancer: No Hx Family GI Disorders: No Hx Family Genitourinary Disorders: No Hx Family Endocrine Disorder: No Hx Family Musculoskeletal Disorders: No Hx Family Neuromuscular Disorders: No Hx Family Neurologic Disorders: No Hx Family HEENT Disorders: No Hx Family Autoimmune Disorders: No Hx Family Reproductive Disorders: No Hx Family Psychosocial Disorders: No Hx Family Medical Disorders: No Mother Family Member Ethnicity: Non- Living Status: Cause of : CA Hx Family Cardiac Disorders: Yes (Heart disease and HTN) Hx Family Respiratory Disorders: No Hx Family Cancer: Yes Hx Family GI Disorders: No Hx Family Genitourinary Disorders: No Hx Family Endocrine Disorder: Yes (DM) Hx Family Musculoskeletal Disorders: No Hx Family Neuromuscular Disorders: No Hx Family Neurologic Disorders: No Hx Family HEENT Disorders: No Hx Family Autoimmune Disorders: No Hx Family Reproductive Disorders: No Hx Family Psychosocial Disorders: No Hx Family Medical Disorders: No Internal Medicine - H&P: Meds traZODone [TraZODone] 50 mg PO HS PRN 02/18/16 [History] Albuterol Sulfate [Albuterol Inhaler] 2 puff IH Q6HR PRN 09/17/17 [History] Bismuth Subsalicylate [PEPTO-BISMOL (262mg/15mL) Susp] 30 ml PO Q4H PRN 09/17/17 [History] Ergocalciferol (VITAMIN D2) [Vitamin D2] 50,000 unit PO WE 09/17/17 [History] Insulin Glargine [Lantus] 45 unit SQ HS 09/17/17 [History] Magnesium Oxide [Mag-Ox] 400 mg PO DAILY 09/17/17 [History] Sertraline [Zoloft] 200 mg PO DAILY 11/09/17 [History] Atorvastatin [Lipitor] 20 mg PO HS 02/05/19 [History] Insulin Regular U-500 [HumuLIN R U-500] 10 unit SQ TID 02/05/19 [History] Lisinopril [Zestril] 10 mg PO DAILY 02/05/19 [History] Oxybutynin [Ditropan] 5 mg PO DAILY 02/05/19 [History] Oxybutynin [Ditropan] 10 mg PO HS 02/05/19 [History] Topiramate [Topamax] 25 mg PO BID 02/05/19 [History] risperiDONE [Risperdal] 2 mg PO HS 02/05/19 [History] risperiDONE [Risperidone] 0.5 mg PO DAILY 02/05/19 [History] Loperamide [Imodium] 2 mg PO Q6HR PRN 03/05/19 [History] Tramadol HCl [Ultram] 50 mg PO QID PRN 03/05/19 [History] Allergy/AdvReac Type Severity Reaction Status Date / Time No Known Allergies Allergy Verified 09/17/17 16:58 All Systems PM: A 10-system review of systems was performed and is negative for pertinent findings except as documented above in the HPI. - Constitutional Vitals: Temp Pulse Resp BP Pulse Ox 97.4 F L 77 14 88/50 93 03/06/19 00:43 03/06/19 00:43 03/06/19 00:43 03/06/19 00:43 03/06/19 00:43 Exam: . Internal Med - H&P Results - Labs CBC & Chem 7: 03/05/19 18:10 03/05/19 18:10 Labs: Short CBC 03/05/19 Range/Units 18:10 WBC 9.2 (4.3-11.1) K/mcL Hgb 11.4 L (11.5-15.4) g/dL Hct 39.1 (35.3-44.9) % Plt Count 218 (140-400) K/mcL Neutrophils # 6.1 (1.6-8.9) K/mcL BMP 03/05/19 18:10 Sodium 134 L Potassium 3.5 Chloride 100 Carbon Dioxide 25 BUN 25 H Creatinine 1.40 H Glucose 209 H Calcium 9.0 Urine 03/05/19 Range/Units 20:16 Urine Color Dark Yellow (Yellow) Urine Clarity Turbid A (Clear) Urine pH 5.5 (5.0-8.0) pH Units Ur Specific [place] 1.025 (1.010-1.025) Urine Protein 30 H (Neg-Trace) mg/dL Urine Glucose (UA) Normal (Normal) mg/dL - Impressions ITS Impressions Abdomen/Pelvis CT 03/05/19 18:42 IMPRESSION: Gas and fluid collection centered in the left adnexal space, most compatible with a tubo-ovarian abscess. Gynecologic consultation recommended. IUD is noted within the myometrium, and the rightward aspect of the IUD may be extending into the myometrium, and therefore myometrial invasion is a concern. Gynecologic consultation is again recommended. D/ / Clovis Welch MD / Clovis Welch MD Interpreting Provider: Clovis Welch MD Abdomen/Pelvis/Transvag US 03/05/19 19:53 IMPRESSION: Limited examination, ovaries obscured by bowel gas. D/ / Erik Freeman MD / Erik Freeman MD Interpreting Provider: Erik Freeman MD - Time Spent With Patient Total time spent is greater than 50% in coordination of care (as documented) at patient's floor/unit and/or counseling patient: Greater than 35 minutes
[2019-03-06] MEDS: traMADol 50 MG TABLET PO PRN ×2 (01:52→13:10)
[2019-03-06] MEDS: risperiDONE 1 MG TABLET PO SCH ×2 (01:52→21:11)
[2019-03-06] MEDS: 0.9 % Sodium Chloride 1,000 ML IVC SCH ×2 (01:53→07:37)
[2019-03-06 03:50] LABS: Basophils % 0.3 %; Eosinophils # 0.1 K/mcL (0.0-0.6); Hematocrit 33.5 % (35.3-44.9); Hemoglobin 9.8 g/dL (11.5-15.4); Immature Granulocytes % 0.5 % (0-4); Lymphocytes # 1.7 K/mcL (0.6-4.6); Lymphocytes % 25.5 %; Mean Corpuscular HGB Conc 29.3 g/dL (31.6-35.5); Mean Corpuscular Volume 88.9 fL (83.0-100.0); Mean Platelet Volume 10.7 fL (9.4-12.4); Monocytes # 0.5 K/mcL (0.0-1.3); Monocytes % 7.7 %; Neutrophils # 4.3 K/mcL (1.6-8.9); Platelet Count 174 K/mcL (140-400); Red Blood Count 3.77 M/mcL (3.82-4.97); Red Cell Distribution Width 16.1 % (11.5-14.5)
[2019-03-06 04:09] LABS: Calcium 8.4 mg/dL (8.6-10.3); Potassium 3.9 mEq/L (3.5-5.1)
[2019-03-06 04:44] LABS: ABG Base Excess 1 mEq/L (-2 to 3); ABG HCO3 30 mEq/L (21-27); ABG Oxygen Saturation 96 % (95-98); ABG PCO2 71 mmHg (35-45); ABG PH 7.23 pH Units (7.32-7.45); ABG PO2 96 mmHg (85-104); ABG TCO2 32 mEq/L (20-26)
--- NOTE | 2019-03-06 04:46 | Event Note ---
Date of Encounter: 03/06/19 Time of Encounter: 04:45 The patient was noted more drowsy than usual and hypoxic on room air. ABG done shows respiratory acidosis with CO2 retention. BiPap ordered. 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
[2019-03-06] MEDS: Ampicillin/Sulbactam 3,000 MG in 0.9 % Sodium Chloride Mini Bag 100 ML IVPB SCH ×3 (05:47→17:46)
[2019-03-06] MEDS: *HR* Heparin 5,000 UNIT/ML VIAL SQ SCH ×3 (05:53→21:12)
[2019-03-06] MEDS: Doxycycline 100 MG in 0.9 % Sodium Chloride Mini Bag 100 ML IVPB SCH ×2 (06:28→19:27)
[2019-03-06] MEDS: Topiramate 25 MG TABLET PO SCH ×2 (09:57→21:11)
[2019-03-06] MEDS: risperiDONE 0.25 MG TABLET PO SCH (09:57)
[2019-03-06] MEDS: Magnesium Oxide 400 MG TABLET PO SCH (09:57)
[2019-03-06] MEDS: Insulin LISPRO 300 UNITS/3 ML VIAL SQ SCH ×4 (09:58→21:10)
--- NOTE | 2019-03-06 12:58 | Event Note ---
Date of Encounter: 03/06/19 Time of Encounter: 12:57 She was seen and examined earlier this morning by hospitalist services. Currently patient complains of abdominal pain right upper quadrant. She expresses concern about having diarrhea states she had diarrhea for 2 weeks that eventually resolved. Awaiting YOUTH WORKER recommendations. We will continue with current IV antibiotics. Patient verbalizes understanding of treatment plan
[2019-03-06] MEDS: *HR* OxyCODONE Immed Rel 5 MG TABLET PO PRN (17:44)
[2019-03-06] MEDS ORDERED: Acetaminophen IV 500 MG/50 ML INFUS..BTL IVPB ONE (21:29)
[2019-03-07] MEDS: Ampicillin/Sulbactam 3,000 MG in 0.9 % Sodium Chloride Mini Bag 100 ML IVPB SCH ×4 (00:06→18:09)
[2019-03-07] MEDS: traMADol 50 MG TABLET PO PRN ×2 (01:18→13:50)
[2019-03-07 03:59] LABS: Basophils % 0.4 %; Eosinophils # 0.1 K/mcL (0.0-0.6); Eosinophils % 2.1 %; Hematocrit 33.8 % (35.3-44.9); Immature Granulocytes % 0.6 % (0-4); Lymphocytes % 29.3 %; Mean Corpuscular HGB Conc 29.6 g/dL (31.6-35.5); Mean Corpuscular Hemoglobin 26.4 pg (28.0-33.3); Mean Corpuscular Volume 89.2 fL (83.0-100.0); Mean Platelet Volume 10.8 fL (9.4-12.4); Monocytes # 0.5 K/mcL (0.0-1.3); Monocytes % 7.7 %; Platelet Count 194 K/mcL (140-400); Red Blood Count 3.79 M/mcL (3.82-4.97); Red Cell Distribution Width 15.9 % (11.5-14.5); Segmented Neutrophils % 59.9 %
[2019-03-07 04:18] LABS: BUN/Creatinine Ratio 24 (6-26); Blood Urea Nitrogen 25 mg/dL (6-20); Calcium 8.6 mg/dL (8.6-10.3); Carbon Dioxide 23 mEq/L (23-29); Chloride 107 mEq/L (98-107); Glucose 185 mg/dL (70-105); Osmolality,Calculated 291 (280-300); Potassium 4.2 mEq/L (3.5-5.1); Sodium 136 mEq/L (136-145); eGFR For Non-African Americans 56 (> 60)
[2019-03-07] MEDS: *HR* Heparin 5,000 UNIT/ML VIAL SQ SCH ×3 (05:42→21:04)
[2019-03-07] MEDS ORDERED: traMADol 50 MG TABLET PO ONE (05:57)
[2019-03-07] MEDS: Doxycycline 100 MG in 0.9 % Sodium Chloride Mini Bag 100 ML IVPB SCH ×2 (06:24→18:11)
[2019-03-07] MEDS: risperiDONE 0.25 MG TABLET PO SCH (09:21)
[2019-03-07] MEDS: Topiramate 25 MG TABLET PO SCH ×2 (09:21→21:03)
[2019-03-07] MEDS: Magnesium Oxide 400 MG TABLET PO SCH (09:21)
[2019-03-07] MEDS: *HR* OxyCODONE Immed Rel 5 MG TABLET PO PRN ×2 (09:22→18:08)
[2019-03-07] MEDS: Insulin LISPRO 300 UNITS/3 ML VIAL SQ SCH ×4 (09:22→21:02)
--- NOTE | 2019-03-07 13:25 | OB/GYN Consult Note ---
Date of Encounter: 03/07/19 Time of Encounter: 13:22 Assessment and Plan (1) Back pain Current Visit: Yes Status: Acute Patient being treated for UTI Pain related to UTI vs misplaced IUD Treat for discomfort as ordered Qualifiers: Back pain location: low back pain Chronicity: acute Back pain laterality: right Sciatica presence: without sciatica Qualified Code(s): M54.5 - Low back pain (2) IUD migration Current Visit: Yes Status: Acute Reviewed case with Dr. Walker: - Mirena IUD placed January of 2011, needs removed. - According to imaging studies, IUD may be in myometrium so it will need removed. - Office appointment scheduled on 03/16/[address] Walker to discuss IUD removal and options for replacement of new IUD. Qualifiers: Encounter type: sequela Qualified Code(s): T83.89XS - Other specified complication of genitourinary prosthetic devices, implants and grafts, sequela (3) Ovarian anomaly Current Visit: Yes Status: Acute Likely benign ovarian cyst. Follow-up with Dr. Walker as scheduled for office visit. History of Present Illness Consult date: 03/07/19 Requesting physician: Sade Cho Reason for consult: pelvic pain, medical complication (back pain) Chief complaint: Back pain History of present illness: Patient is a pleasant lady who was sitting on bedside when I arrived in room. She does state she is currently in pain and points to her right flank area. Copied from initial ER evaluation: 48-year-old female presenting for 2 day history of right sided hip and SI joint pain When asked to point where her greatest area of pain is located patient points to her right hip near the greater trochanter. Patient lives in extended care facility for weight loss therapy due to morbid obesity Patient denies any traumatic event Patient states her pain is not radiating Patient denies chest pain, shortness of breath, abdominal pain Likely musculoskeletal Onset (ago): day(s) Location: back, right Radiation: non-radiation Pain Severity: severe Pain Scale: 10 Quality: stabbing, sharp Consistency: Worsening Associated symptoms: Reports: denies other symptoms Past Med Surg Social Fam HX - Past Medical History Medical history: asthma, CHF, coronary artery disease, diabetes Additional medical history: blood dyscrasia- states "I bleed a lot" Psychiatric history: anxiety, depression - Past Surgical History Surgical History: appendectomy, breast surgery, cholecystectomy, herniorrhaphy, sinus surgery, other Additional surgical history: UMBILICAL HERNIA. T&A. R BREAST BIOPSY. TOOTH EXTRACTIONS. APPENDIX - Social History Smoking Status: Former smoker Smokeless Tobacco Status: No Alcohol use: none Drug use: none - Family History Father Family Member Ethnicity: Non- Living Status: Age at : 40 Cause of : Colon CA Hx Family Cardiac Disorders: No Hx Family Respiratory Disorders: No Hx Family Cancer: Yes (Colon) Hx Family GI Disorders: No Hx Family Genitourinary Disorders: No Hx Family Endocrine Disorder: No Hx Family Musculoskeletal Disorders: No Hx Family Neuromuscular Disorders: No Hx Family Neurologic Disorders: No Hx Family Autoimmune Disorders: No Hx Family Reproductive Disorders: No Hx Family Psychosocial Disorders: No Hx Family Medical Disorders: No Brother Family Member Ethnicity: Non- Living Status: Cause of : Stomach CA Hx Family Cardiac Disorders: No Hx Family Respiratory Disorders: No Hx Family Cancer: Yes (Stomach CA) Hx Family GI Disorders: No Hx Family Genitourinary Disorders: No Hx Family Endocrine Disorder: No Hx Family Musculoskeletal Disorders: No Hx Family Neuromuscular Disorders: No Hx Family Neurologic Disorders: No Hx Family HEENT Disorders: No Hx Family Autoimmune Disorders: No Hx Family Reproductive Disorders: No Hx Family Psychosocial Disorders: No Hx Family Medical Disorders: No Sister Family Member Ethnicity: Non- Living Status: Still Living Grandmother Family Member Ethnicity: Non- Living Status: Age at : 53 Cause of : MD Hx Family Cardiac Disorders: Yes (MD and HTN) Hx Family Respiratory Disorders: No Hx Family Cancer: No Hx Family GI Disorders: No Hx Family Genitourinary Disorders: No Hx Family Endocrine Disorder: Yes (DM) Hx Family Musculoskeletal Disorders: No Hx Family Neuromuscular Disorders: No Hx Family Neurologic Disorders: No Hx Family HEENT Disorders: No Hx Family Autoimmune Disorders: No Hx Family Reproductive Disorders: No Hx Family Psychosocial Disorders: No Hx Family Medical Disorders: No Grandfather Family Member Ethnicity: Non- Living Status: Cause of : MD Hx Family Cardiac Disorders: Yes (MD) Hx Family Respiratory Disorders: No Hx Family Cancer: No Hx Family GI Disorders: No Hx Family Genitourinary Disorders: No Hx Family Endocrine Disorder: No Hx Family Musculoskeletal Disorders: No Hx Family Neuromuscular Disorders: No Hx Family Neurologic Disorders: No Hx Family HEENT Disorders: No Hx Family Autoimmune Disorders: No Hx Family Reproductive Disorders: No Hx Family Psychosocial Disorders: No Hx Family Medical Disorders: No Mother Family Member Ethnicity: Non- Living Status: Cause of : CA Hx Family Cardiac Disorders: Yes (Heart disease and HTN) Hx Family Respiratory Disorders: No Hx Family Cancer: Yes Hx Family GI Disorders: No Hx Family Genitourinary Disorders: No Hx Family Endocrine Disorder: Yes (DM) Hx Family Musculoskeletal Disorders: No Hx Family Neuromuscular Disorders: No Hx Family Neurologic Disorders: No Hx Family HEENT Disorders: No Hx Family Autoimmune Disorders: No Hx Family Reproductive Disorders: No Hx Family Psychosocial Disorders: No Hx Family Medical Disorders: No Medications and Allergies traZODone [TraZODone] 50 mg PO HS PRN 02/18/16 [History] Albuterol Sulfate [Albuterol Inhaler] 2 puff IH QID PRN 09/17/17 [History] Ergocalciferol (VITAMIN D2) [Vitamin D2] 50,000 unit PO ELY 09/17/17 [History] Insulin Glargine [Lantus] 45 unit SQ HS 09/17/17 [History] Magnesium Oxide [Mag-Ox] 400 mg PO DAILY 09/17/17 [History] Sertraline [Zoloft] 200 mg PO QAM 09/17/17 [History] Insulin Regular U-500 [HumuLIN R U-500] 10 unit SQ TID 02/05/19 [History] Lisinopril [Zestril] 10 mg PO DAILY 02/05/19 [History] Topiramate [Topamax] 25 mg PO BID 02/05/19 [History] risperiDONE [Risperidone] 0.5 mg PO DAILY 02/05/19 [History] Loperamide [Imodium] 2 mg PO AD PRN 03/05/19 [History] Tramadol HCl [Ultram] 50 mg PO QID PRN 03/05/19 [History] Atorvastatin Calcium [Lipitor] 20 mg PO HS 03/07/19 [History] Bismuth Subsalicylate [Mira-Pectate] 525 mg PO 8XD PRN 03/07/19 [History] Oxybutynin Chloride [Ditropan Xl] 5 mg PO DAILY 03/07/19 [History] Oxybutynin Chloride [Ditropan Xl] 10 mg PO HS 03/07/19 [History] risperiDONE [Risperdal] 2 mg PO HS 03/07/19 [History] Allergy/AdvReac Type Severity Reaction Status Date / Time No Known Allergies Allergy Verified 09/17/17 16:58 Review of Systems Constitutional: as per HPI Genitourinary Female: pelvic pain, other (possible ovarian cyst, IUD in place) Musculoskeletal: back pain Exam - Vital Signs Vital signs: Initial Vital Signs Temp Pulse Resp BP Pulse Ox 98.5 F 59 16 109/68 92 03/05/19 17:33 03/05/19 17:33 03/05/19 17:33 03/05/19 17:33 03/05/19 17:33 - Constitutional Constitutional: no acute distress, morbidly obese Results Result Diagrams: 03/07/19 03:12 03/07/19 03:12 Abnormal lab results RBC 3.79 M/mcL (3.82-4.97) L 03/07/19 03:12 Hgb 10.0 g/dL (11.5-15.4) L 03/07/19 03:12 Hct 33.8 % (35.3-44.9) L 03/07/19 03:12 MCH 26.4 pg (28.0-33.3) L 03/07/19 03:12 MCHC 29.6 g/dL (31.6-35.5) L 03/07/19 03:12 RDW 15.9 % (11.5-14.5) H 03/07/19 03:12 ABG pH 7.23 pH Units (7.32-7.45) L 03/06/19 04:40 ABG pCO2 71 mmHg (35-45) H* 03/06/19 04:40 ABG HCO3 30 mEq/L (21-27) H 03/06/19 04:40 ABG Total CO2 32 mEq/L (20-26) H 03/06/19 04:40 Sodium 134 mEq/L (136-145) L 03/05/19 18:10 BUN 25 mg/dL (6-20) H 03/07/19 03:12 1.30 mg/dL (0.60-1.20) H 03/06/19 03:29 Est GFR ( Amer) 53 (> 60) L 03/06/19 03:29 Est GFR (Non-Af Amer) 56 (> 60) L 03/07/19 03:12 Glucose 185 mg/dL (70-105) H 03/07/19 03:12 POC Glucose 203 mg/dL (70-99) H 03/06/19 20:03 Calcium 8.4 mg/dL (8.6-10.3) L 03/06/19 03:29 Turbid (Clear) A 03/05/19 20:16 30 mg/dL (Neg-Trace) H 03/05/19 20:16 Trace mg/dL (Negative) H 03/05/19 20:16 Positive (Negative) A 03/05/19 20:16 Small (Negative) H 03/05/19 20:16 Ur Leukocyte Esterase Large (Negative) H 03/05/19 20:16 TNTC per hpf (0-3) H 03/05/19 20:16 Ur Squamous Epith Cells Many per lpf (None-Few) H 03/05/19 20:16 Many per hpf (None-Few) H 03/05/19 20:16 Ur Culture Indicated? NO. (NO) A 03/05/19 20:16 All other labs normal. Consult Discharge Plan - Plan Additional Instructions: Follow up appointment made on 03/16/[address] Walker Referrals: Jet Mathur DO [Primary Care Provider] -
--- NOTE | 2019-03-07 13:54 | Internal Med Progress Note ---
Hospitalist Progress Note - Encounter Date of Encounter: 03/07/19 Time of Encounter: 13:52 - Subjective Interval History: Patient seen and examined -she is sitting on side of bed - complaining of L flank -pain on urination -we will obtain urine culture-she was seen by gynecology recommending follow-up as outpatient -anticipated discharging patient however she will require BiPAP at night ECF will not be able to obtain until tomorrow we will keep patient overnight and discharge in the a.m. - Exam Vitals: Temp Pulse Resp BP Pulse Ox 97.5 F L 81 14 104/71 94 03/07/19 12:08 03/07/19 12:08 03/07/19 12:08 03/07/19 12:08 03/07/19 12:08 Exam: Skin: Free of rash and discoloration. Eyes: Sclera is white. There is no discharge from eyes. ENMT: Oral/pharyngeal mucosa is normal in appearance. There is no discharge from nose or ears. Respiratory: Normal breath sounds with no crackles and wheezes bilaterally. CV: Heart is regular with no gallop or murmur. GI: Abdomen is obese flat and soft with no palpable mass or visceromegaly. : There is R flank tenderness Neuro exam: He has good strength in upper and lower extremities. He has normal eye movements. Psychiatric: He has normal affect. His thought process is appropriate to the situation. - Assessment and Plan (1) Abnormal CT scan Current Visit: Yes Status: Acute Assessment and Plan: 1 CT of abdomen and pelvis IMPRESSION: Gas and fluid collection centered in the left adnexal space, most compatible with a tubo-ovarian abscess. Gynecologic consultation recommended. IUD is noted within the myometrium, and the rightward aspect of the IUD may be extending into the myometrium, and therefore myometrial invasion is a concern. Gynecologic consultation is again recommended. -Gynecology has been consult and recommending follow-up in office on 03/16/[address] Burgos to discuss IUD removal and options replacement, gynecology suspects benign cysts follow-up as outpatient -Patient is afebrile with no leukocytosis (2) IUD migration Current Visit: Yes Status: Acute (3) Right hip pain Current Visit: Yes Status: Acute Assessment and Plan: 1 patient has not complained any right hip pain today she complains of right flank pain most likely secondary to UTI we will continue with antibiotics as well as pain medications (4) Urinary tract infection Current Visit: Yes Status: Acute Assessment and Plan: Urine culture ordered awaiting sensitivity -patient will be discharged home on Levaquin -she does complain of back pain as well as burning on urination (5) DVT prophylaxis Current Visit: No Status: Acute Assessment and Plan: Heparin subcutaneous (6) HTN (hypertension) Current Visit: No Status: Chronic Assessment and Plan: Continue with home medications (7) Morbid obesity with BMI of 60.0-69.9, adult Current Visit: No Status: Chronic Assessment and Plan: Patient counseled on lifestyle changes (8) Type 2 diabetes mellitus Current Visit: No Status: Chronic Assessment and Plan: Dictated Accu-Cheks before meals and examined with signs go insulin (9) Pelvic pain Current Visit: Yes Status: Acute Assessment and Plan: Resented with right-sided hip and pelvic pain that has been occurring for 2 days does complain of pain on urination. CT scan completed concerning for gas and fluid collection central in the left adnexal compatible with tubo-ovarian abscess-IUD is noted within the myometrium, and the rightward aspect of the IUD may be extending into the myometrium, and therefore myometrial invasion is a concern. -[employer]ISITIONS MANAGER was consulted and appreciate recommendations -No leukocytosis no fever -Blood cultures have been obtained -Started on empiric ampicillin/sulbactam with doxycycline -we will discharge on Levaquin 500 mg daily and Flagyl 500 mg twice a day for 10 days -Has UTI will send for culture (10) Acute on chronic respiratory acidosis Current Visit: Yes Status: Acute Assessment and Plan: 1 on admission patient was hypoxic with ABG was continuously show respiratory ac idosis with CO2 retention she was placed on BiPAP she does have a history of COPD and to her morbid obesity most likely has SHAUNA/OHS -Patient will be discharged on BiPAP with settings 10/16 (11) COPD (chronic obstructive pulmonary disease) Current Visit: Yes Status: Acute Assessment and Plan: 1 currently does not appear to be exacerbation continue with oxygen as needed as well as bronchodilators - Time Spent with Patient Total time spent is greater than 50% in coordination of care (as documented) at patient's floor/unit and/or counseling patient: Internal Medicine: Result - Labs CBC & Chem 7: 03/07/19 03:12 03/07/19 03:12 Labs: Short CBC 03/07/19 Range/Units 03:12 WBC 6.7 (4.3-11.1) K/mcL Hgb 10.0 L (11.5-15.4) g/dL Hct 33.8 L (35.3-44.9) % Plt Count 194 (140-400) K/mcL Neutrophils # 4.0 (1.6-8.9) K/mcL BMP 03/07/19 03:12 Sodium 136 Potassium 4.2 Chloride 107 Carbon Dioxide 23 BUN 25 H Creatinine 1.06 Glucose 185 H Calcium 8.6 - ABG Interpretation ABG results: ABG ABG pH 7.23 pH Units (7.32-7.45) L 03/06/19 04:40 ABG pCO2 71 mmHg (35-45) H* 03/06/19 04:40 ABG pO2 96 mmHg (85-104) 03/06/19 04:40 ABG O2 Saturation 96 % (95-98) 03/06/19 04:40 Consult Discharge Plan - Plan Additional Instructions: Follow up appointment made on 03/16/[address] Walker Referrals: Jet Mathur DO [Primary Care Provider] - (2) IUD migration Qualifiers: Encounter type: sequela Qualified Code(s): T83.89XS - Other specified complication of genitourinary prosthetic devices, implants and grafts, sequela (4) Urinary tract infection Qualifiers: Urinary tract infection type: acute cystitis Hematuria presence: without hematuria Qualified Code(s): N30.00 - Acute cystitis without hematuria (6) HTN (hypertension) Qualifiers: Hypertension type: essential hypertension Qualified Code(s): I10 - Essential (primary) hypertension (8) Type 2 diabetes mellitus Qualifiers: Diabetes mellitus longterm insulin use: without terminal gauger use Diabetes anand litus complication status: with unspecified complications Qualified Code(s): E11.8 - Type 2 diabetes mellitus with unspecified complications (11) COPD (chronic obstructive pulmonary disease) Qualifiers: COPD type: unspecified COPD Qualified Code(s): J44.9 - Chronic obstructive pulmonary disease, unspecified
[2019-03-07 15:17] LABS: ABG Base Excess 4 mEq/L (-2 to 3); ABG HCO3 30 mEq/L (21-27); ABG Oxygen Saturation 95 % (95-98); ABG PCO2 55 mmHg (35-45); ABG PH 7.35 pH Units (7.32-7.45); ABG PO2 79 mmHg (85-104); ABG TCO2 32 mEq/L (20-26)
[2019-03-07] MEDS: risperiDONE 1 MG TABLET PO SCH (21:03)
[2019-03-07] MEDS ORDERED: Ketorolac 30 MG/ML VIAL IVP ONE (21:28)
[2019-03-08] MEDS: Ampicillin/Sulbactam 3,000 MG in 0.9 % Sodium Chloride Mini Bag 100 ML IVPB SCH ×3 (00:05→11:46)
[2019-03-08] MEDS: *HR* Heparin 5,000 UNIT/ML VIAL SQ SCH ×2 (05:36→13:52)
[2019-03-08] MEDS: Doxycycline 100 MG in 0.9 % Sodium Chloride Mini Bag 100 ML IVPB SCH (06:19)
--- NOTE | 2019-03-08 10:07 | Discharge Summary ---
- NOTES TO OUTPATIENT PROVIDER Notes to Outpatient Provider: Today history of right-sided hip and SI joint pain for 2 days C2 was completed concerned for gas and fluid collection centered in the left adnexal space compatible with tubo-ovarian abscess. As well asIUD is noted within the myometrium, and the rightward aspect of the IUD may be extending into the myometrium, and therefore myometrial invasion is a concern. Gynecology was consulted recommending outpatient follow-up for IUD removal. Also had UTI receiving antibiotics urine culture pending blood cultures negative to date. Did have some hypercapnia and hypoxia during sleeping ABG obtained which showed hypercapnia and respiratory acidosis will require BiPAP at night a nd needs workup as outpatient for SHAUNA Orders not resulted at time of discharge: Pending orders 03/05/19 20:17 Culture,Blood [BC] Stat 03/06/19 17:49 Occult Blood,Stool [BF] Routine 03/07/19 14:14 Culture,Urine [RM] Routine Date of Encounter: 03/08/19 Time of Encounter: 10:10 - Discharge Diagnosis (1) Abnormal CT scan Priority: Secondary Status: Acute (2) IUD migration Priority: Secondary Status: Acute Qualifiers: Encounter type: sequela Qualified Code(s): T83.89XS - Other specified complication of genitourinary prosthetic devices, implants and grafts, sequela (3) Right hip pain Priority: Primary Status: Acute (4) Urinary tract infection Priority: Secondary Status: Acute Qualifiers: Urinary tract infection type: acute cystitis Hematuria presence: without hematuria Qualified Code(s): N30.00 - Acute cystitis without hematuria (5) HTN (hypertension) Priority: Secondary Status: Chronic Qualifiers: Hypertension type: essential hypertension Qualified Code(s): I10 - Essential (primary) hypertension (6) Morbid obesity with BMI of 60.0-69.9, adult Priority: Secondary Status: Chronic (7) Type 2 diabetes mellitus Priority: Secondary Status: Chronic Qualifiers: Diabetes mellitus [facility] insulin use: without [facility] use Diabetes mellitus complication status: with unspecified complications Qualified Code(s): E11.8 - Type 2 diabetes mellitus with unspecified complications (8) Pelvic pain Priority: Primary Status: Acute (9) Acute on chronic respiratory acidosis Priority: Secondary Status: Acute (10) COPD (chronic obstructive pulmonary disease) Priority: Secondary Status: Acute Qualifiers: COPD type: unspecified COPD Qualified Code(s): J44.9 - Chronic obstructive pulmonary disease, unspecified Hospital course: Ms. Paul is a 48 year old female past medical history of morbid obesity diabetes hypertension hyperlipidemia coronary artery disease MRDD patient does live an extended care facility . She presented to [facility] ED with complaints of right- sided hip and pelvic pain for approximately 2 days. Denied any traumatic events no radiation associated nausea vomiting or dysuria. CT of the abdomen and pelvis was completed which did show gas and fluid collection centered in the left adnexal space compatible with tubo-ovarian abscess as well as IUD noted within the myometrium and the rightward aspect of the IUD may be extending into the myometrium. No leukocytosis patient has been afebrile she was empirically started on Unasyn and doxycycline. Urinalysis did show UTI she also had AK I which did resolve after receiving fluids Gynecological consult was made- recommending follow-up as outpatient for IUD removal-suspect ovarian cyst follow-up as outpatient-during admission patient did have episode of hypoxia while sleeping ABG was obtained and showed hypercapnia suspect SHAUNA/OHS placed on BiPAP. She will require BiPAP and a follow-up with pulmonary as outpatient for sleep study. During stay patient did not complain of any hip pain but mostly right flank pain and some burning on urination urine cultures are pending at this time we will discharge patient will antibiotics and follow-up with primary care provider. She is hemodynamically stable this time is ready for discharge. - Time Spent with Patient Total time spent providing and/or coordinating discharge services: - Discharge Medications Prescriptions: New metroNIDAZOLE [Flagyl] 500 mg PO BID 10 Days #20 tablet Levofloxacin [Levaquin] 500 mg PO DAILY 10 Days #10 tablet HYDROcodone/Acet 5/325 mg [Sanderson 5-325 mg] 1 tab PO Q6H PRN 2 Days #8 tab PRN Reason: Pain Continued traZODone [TraZODone] 50 mg PO HS PRN PRN Reason: Sleep Magnesium Oxide [Mag-Ox] 400 mg PO DAILY Sertraline [Zoloft] 200 mg PO QAM Ergocalciferol (VITAMIN D2) [Vitamin D2] 50,000 unit PO ELY Albuterol Sulfate [Albuterol Inhaler] 2 puff IH QID PRN PRN Reason: Shortness Of Breath Insulin Glargine [Lantus] 45 unit SQ HS Topiramate [Topamax] 25 mg PO BID risperiDONE [Risperidone] 0.5 mg PO DAILY Lisinopril [Zestril] 10 mg PO DAILY Insulin Regular U-500 [HumuLIN R U-500] 10 unit SQ TID Tramadol HCl [Ultram] 50 mg PO QID PRN PRN Reason: Pain Loperamide [Imodium] 2 mg PO AD PRN PRN Reason: Diarrhea Atorvastatin Calcium [Lipitor] 20 mg PO HS Bismuth Subsalicylate [Mira-Pectate] 525 mg PO 8XD PRN PRN Reason: Nausea Oxybutynin Chloride [Ditropan Xl] 10 mg PO HS Oxybutynin Chloride [Ditropan Xl] 5 mg PO DAILY risperiDONE [Risperdal] 2 mg PO HS Home Medications: traZODone [TraZODone] 50 mg PO HS PRN 02/18/16 [History] Albuterol Sulfate [Albuterol Inhaler] 2 puff IH QID PRN 09/17/17 [History] Ergocalciferol (VITAMIN D2) [Vitamin D2] 50,000 unit PO ELY 09/17/17 [History] Insulin Glargine [Lantus] 45 unit SQ HS 09/17/17 [History] Magnesium Oxide [Mag-Ox] 400 mg PO DAILY 09/17/17 [History] Sertraline [Zoloft] 200 mg PO QAM 09/17/17 [History] Insulin Regular U-500 [HumuLIN R U-500] 10 unit SQ TID 02/05/19 [History] Lisinopril [Zestril] 10 mg PO DAILY 02/05/19 [History] Topiramate [Topamax] 25 mg PO BID 02/05/19 [History] risperiDONE [Risperidone] 0.5 mg PO DAILY 02/05/19 [History] Loperamide [Imodium] 2 mg PO AD PRN 03/05/19 [History] Tramadol HCl [Ultram] 50 mg PO QID PRN 03/05/19 [History] Atorvastatin Calcium [Lipitor] 20 mg PO HS 03/07/19 [History] Bismuth Subsalicylate [Mira-Pectate] 525 mg PO 8XD PRN 03/07/19 [History] Oxybutynin Chloride [Ditropan Xl] 5 mg PO DAILY 03/07/19 [History] Oxybutynin Chloride [Ditropan Xl] 10 mg PO HS 03/07/19 [History] risperiDONE [Risperdal] 2 mg PO HS 03/07/19 [History] HYDROcodone/Acet 5/325 mg [Sanderson 5-325 mg] 1 tab PO Q6H PRN 2 Days #8 tab 03/08/19 [Rx] Levofloxacin [Levaquin] 500 mg PO DAILY 10 Days #10 tablet 03/08/19 [Rx] metroNIDAZOLE [Flagyl] 500 mg PO BID 10 Days #20 tablet 03/08/19 [Rx] Allergies/Adverse Reactions: Allergy/AdvReac Type Severity Reaction Status Date / Time No Known Allergies Allergy Verified 09/17/17 16:58 Date of admission: 03/05/19 23:37 Primary care physician: Jet Mathur DO Consults: 03/07/19 09:31 Consult to Mentally Impaired Teacher [CONS] Routine Reason for Consult: SNF [facility]IDENT AT [facility] Discharging clinician: Ida Coates Anticipated date of discharge: 03/08/19 - Constitutional Vitals: Temp Pulse Resp BP Pulse Ox 98.3 F 75 19 130/84 92 03/08/19 06:32 03/08/19 06:32 03/08/19 06:32 03/08/19 06:32 03/08/19 06:32 Exam: Skin: Free of rash and discoloration. Eyes: Sclera is white. There is no discharge from eyes. ENMT: Oral/pharyngeal mucosa is normal in appearance. There is no discharge from nose or ears. Respiratory: Normal breath sounds with no crackles and wheezes bilaterally. CV: Heart is regular with no gallop or murmur. GI: Abdomen is flat and soft with no palpable mass or visceromegaly. : There is tenderness to right flank Neuro exam: He has good strength in upper and lower extremities. He has normal eye movements. Psychiatric: He has normal affect. His thought process is appropriate to the situation. - Patient Status Disposition: Transfer SNF Condition: Fair Functional capacity at discharge: uses cane/walker Overall status at discharge: patient is back to baseline - Discharge Instructions Follow Up With: Jet Mathur DO [Primary Care Provider] - Additional Instructions: Follow up appointment made on 03/16/[address] Walker - Diet and Activity Activity: increase activity as tolerated, wear oxygen at night Diet: diabetic diet
[2019-03-08] MEDS: traMADol 50 MG TABLET PO PRN (10:15)
[2019-03-08] MEDS: Topiramate 25 MG TABLET PO SCH (10:16)
[2019-03-08] MEDS: Magnesium Oxide 400 MG TABLET PO SCH (10:16)
[2019-03-08] MEDS: risperiDONE 0.25 MG TABLET PO SCH (10:16)
[2019-03-08] MEDS: Insulin LISPRO 300 UNITS/3 ML VIAL SQ SCH ×2 (10:17→11:48)
[2019-03-08 10:43] VITALS: BP 108/64
--- NOTE | 2019-03-08 11:24 | Physician Discharge Referral ---
ExtendedCare Referral Info Transfer To: [facility] Provider in Charge: Emilee Coates Provider in Charge after Transfer: PCP Institutional Level of Care: Skilled - Diagnosis (1) Abnormal CT scan Priority: Secondary Status: Acute (2) IUD migration Priority: Secondary Status: Acute (3) Right hip pain Priority: Primary Status: Acute (4) Urinary tract infection Priority: Secondary Status: Acute (5) HTN (hypertension) Priority: Secondary Status: Chronic (6) Morbid obesity with BMI of 60.0-69.9, adult Priority: Secondary Status: Chronic (7) Type 2 diabetes mellitus Priority: Secondary Status: Chronic (8) Pelvic pain Priority: Primary Status: Acute (9) Acute on chronic respiratory acidosis Priority: Secondary Status: Acute (10) COPD (chronic obstructive pulmonary disease) Priority: Secondary Status: Acute Prognosis: Fair Aware of Diagnosis: Patient Aware of Prognosis: Patient - Transfer Medications Prescriptions: metroNIDAZOLE [Flagyl] 500 mg PO BID 10 Days #20 tablet Levofloxacin [Levaquin] 500 mg PO DAILY 10 Days #10 tablet HYDROcodone/Acet 5/325 mg [Henderson 5-325 mg] 1 tab PO Q6H PRN 2 Days #8 tab PRN Reason: Pain Home Medications: traZODone [TraZODone] 50 mg PO HS PRN 02/18/16 [History] Albuterol Sulfate [Albuterol Inhaler] 2 puff IH QID PRN 09/17/17 [History] Ergocalciferol (VITAMIN D2) [Vitamin D2] 50,000 unit PO ELY 09/17/17 [History] Insulin Glargine [Lantus] 45 unit SQ HS 09/17/17 [History] Magnesium Oxide [Mag-Ox] 400 mg PO DAILY 09/17/17 [History] Sertraline [Zoloft] 200 mg PO QAM 09/17/17 [History] Insulin Regular U-500 [HumuLIN R U-500] 10 unit SQ TID 02/05/19 [History] Lisinopril [Zestril] 10 mg PO DAILY 02/05/19 [History] Topiramate [Topamax] 25 mg PO BID 02/05/19 [History] risperiDONE [Risperidone] 0.5 mg PO DAILY 02/05/19 [History] Loperamide [Imodium] 2 mg PO AD PRN 03/05/19 [History] Tramadol HCl [Ultram] 50 mg PO QID PRN 03/05/19 [History] Atorvastatin Calcium [Lipitor] 20 mg PO HS 03/07/19 [History] Bismuth Subsalicylate [Mira-Pectate] 525 mg PO 8XD PRN 03/07/19 [History] Oxybutynin Chloride [Ditropan Xl] 5 mg PO DAILY 03/07/19 [History] Oxybutynin Chloride [Ditropan Xl] 10 mg PO HS 03/07/19 [History] risperiDONE [Risperdal] 2 mg PO HS 03/07/19 [History] HYDROcodone/Acet 5/325 mg [Henderson 5-325 mg] 1 tab PO Q6H PRN 2 Days #8 tab 03/08/19 [Rx] Levofloxacin [Levaquin] 500 mg PO DAILY 10 Days #10 tablet 03/08/19 [Rx] metroNIDAZOLE [Flagyl] 500 mg PO BID 10 Days #20 tablet 03/08/19 [Rx] Allergies/Adverse Reactions: Allergy/AdvReac Type Severity Reaction Status Date / Time No Known Allergies Allergy Verified 09/17/17 16:58 - Respiratory Orders Other (Bipap during sleep Bipap rate 12 expiratory pressure 8 inspiratory pressure 16 FIO2 30% TV 570) Smoking Cessation: Smoking cessation has been advised. For more information, call the [place] Tobacco Quit Line at 4-638-XCKRNOW. - Ancillary Orders May use pressure relief devices daily prn - Advance Directives Living Will: No Power of Telecommunications Line Installer for Health Care: No Code Status: Full Code - Rehabiliation Orders Rehab Potential: Fair - Treatments Skin tear care topically daily PRN per policy - Diet Orders No Concentrated Sweets, Cardiac CERTIFICATION: I certify that the transfer of the above named patient to an Extended Care Facility is necessary for the continuing treatment of the diagnosis listed. The above information is true and accurate reflection of patient's current condition. Confidential - Redisclosure prohibited without a patient's written consent.
== END 2019-03-08 14:04 ==
LOC: EMEROOARM 17:25 → 3BNU 17:25
PROVIDERS: ADMIT Internal Medicine; ATTEND Internal Medicine

== ENCOUNTER 2019-09-28 15:33 | Inpatient (IN) ==
[2019-09-28] MEDS ORDERED: Isovue-370 500 ML BOTTLE IVP ONE (15:41)
[2019-09-28] MEDS ORDERED: *HR* FentaNYL (PF) 100 MCG/2 ML VIAL IVP ONE ×2 (15:47→19:08)
[2019-09-28] MEDS ORDERED: Ondansetron 4 MG/2 ML VIAL IVP ONE (15:47)
[2019-09-28 16:35] LABS: Basophils % 0.3 %; Eosinophils # 0.1 K/mcL (0.0-0.6); Eosinophils % 1.6 %; Hematocrit 43.9 % (35.3-44.9); Hemoglobin 13.8 g/dL (11.5-15.4); Immature Granulocytes % 0.4 % (0-4); Lymphocytes # 1.4 K/mcL (0.6-4.6); Lymphocytes % 19.7 %; Mean Corpuscular HGB Conc 31.4 g/dL (31.6-35.5); Mean Corpuscular Hemoglobin 28.5 pg (28.0-33.3); Mean Corpuscular Volume 90.7 fL (83.0-100.0); Monocytes # 0.3 K/mcL (0.0-1.3); Monocytes % 4.9 %; Neutrophils # 5.1 K/mcL (1.6-8.9); Platelet Count 169 K/mcL (140-400); Red Blood Count 4.84 M/mcL (3.82-4.97); Red Cell Distribution Width 15.2 % (11.5-14.5); Segmented Neutrophils % 73.1 %
[2019-09-28 16:51] LABS: BUN/Creatinine Ratio 18 (6-26); Blood Urea Nitrogen 13 mg/dL (6-20); Calcium 9.3 mg/dL (8.6-10.3); Carbon Dioxide 28 mEq/L (23-29); Chloride 96 mEq/L (98-107); Glucose 465 mg/dL (70-105); Osmolality,Calculated 296 (280-300); Potassium 3.9 mEq/L (3.5-5.1); Sodium 133 mEq/L (136-145); eGFR For African Americans > 60 (> 60); eGFR For Non-African Americans > 60 (> 60)
[2019-09-28] MEDS ORDERED: Piperacillin/Tazobactam 3.375 GM in 0.9 % Sodium Chloride Mini Bag 100 ML IVPB ONE (17:40)
[2019-09-28 18:18] LABS: Bilirubin,Urine Negative (Negative); Blood,Urine Negative (Negative); Clarity,Urine Cloudy (Clear); Color,Urine Yellow (Yellow); Glucose,Urine (UA) >=1000 mg/dL (Normal); Ketones,Urine Negative (Negative); Leukocyte Esterase,Urine Small (Negative); Nitrite,Urine Negative (Negative); Protein,Urine Negative (Neg-Trace); Specific Gravity,Urine > 1.030 (1.010-1.025); Urobilinogen,Urine Normal (Normal)
[2019-09-28 18:20] LABS: Bacteria,Urine Many per hpf (None-Few); Hyaline Casts,Urine None Seen per lpf (None-Few); Squamous Epithelial Cell,Urine Many per lpf (None-Few)
[2019-09-28 18:32] LABS: RBC,Urine 0-3 per hpf (0-3)
[2019-09-28] MEDS ORDERED: Insulin Regular, Human 100 UNIT/ML SQ ONE (18:38)
[2019-09-28] MEDS ORDERED: Dextrose Gel 15 GM/37.5 ML TUBE PO PRN ×2 (19:37)
[2019-09-28] MEDS ORDERED: *HR* Dextrose 50 % in Water (Syg) 50 ML SYRINGE IVP PRN (19:37)
[2019-09-28] MEDS ORDERED: Ipratropium/Albuterol Neb 3 ML IH PRN (19:58)
[2019-09-28] MEDS ORDERED: traZODone 50 MG TABLET PO PRN (20:17)
[2019-09-28] MEDS ORDERED: Insulin DETEMIR 100 UNIT/ML X5UNITS SQ SCH (21:00)
[2019-09-28] MEDS ORDERED: Ondansetron 4 MG/2 ML VIAL IVP PRN (21:20)
[2019-09-28] MEDS ORDERED: Acetaminophen 325 MG TABLET PO PRN (21:22)
[2019-09-28] MEDS: Ringers Solution, Lactated 1,000 ML IVC SCH (21:48)
[2019-09-28] MEDS: *HR* OxyCODONE Immed Rel 5 MG TABLET PO PRN (21:48)
[2019-09-28] MEDS: risperiDONE 1 MG TABLET PO SCH (22:08)
[2019-09-28] MEDS: Topiramate 25 MG TABLET PO SCH (22:09)
[2019-09-28] MEDS: *HR* Heparin 5,000 UNIT/ML VIAL SQ SCH (22:09)
[2019-09-28] MEDS: Nystatin POWDER 30 GM BOTTLE TP SCH (22:10)
[2019-09-28] MEDS: Insulin LISPRO 300 UNITS/3 ML VIAL SQ SCH (22:47)
[2019-09-29] MEDS ORDERED: Insulin Human Regular 10 UNIT in 0.9 % Sodium Chloride 10 ML IV ONE (00:39)
[2019-09-29] MEDS: Cefepime HCl 2,000 MG in 0.9 % Sodium Chloride Mini Bag 100 ML IVPB SCH ×4 (01:26→23:52)
[2019-09-29] MEDS: Ringers Solution, Lactated 1,000 ML IVC SCH ×2 (01:27→04:57)
[2019-09-29] MEDS: *HR* Heparin 5,000 UNIT/ML VIAL SQ SCH ×3 (04:59→21:48)
[2019-09-29 05:14] LABS: INR 1.1
[2019-09-29 05:16] LABS: Activated Partial Thrombo Time 32.3 Seconds (26.0-36.0)
[2019-09-29 05:22] LABS: Alanine Aminotransferase 8 Units/L (7-52); Albumin/Globulin Ratio 0.8 (1.1-2.2); Alkaline Phosphatase 157 Units/L (34-104); Aspartate Amino Transferase 9 Units/L (13-39); BUN/Creatinine Ratio 19 (6-26); Bilirubin,Indirect 0.3 mg/dL (0.0-1.0); Bilirubin,Total 0.3 mg/dL (0.3-1.0); Blood Urea Nitrogen 12 mg/dL (6-20); Calcium 8.7 mg/dL (8.6-10.3); Carbon Dioxide 28 mEq/L (23-29); Chloride 104 mEq/L (98-107); Chol/HDL Ratio 6.1 (0-4.9); Cholesterol 166 mg/dL (< 200); Globulin 3.8 g/dL (2.4-3.5); Glucose 212 mg/dL (70-105); HDL Cholesterol 27 mg/dL (40-59); Osmolality,Calculated 292 (280-300); Potassium 3.9 mEq/L (3.5-5.1); Sodium 138 mEq/L (136-145); Total Protein 6.8 g/dL (6.4-8.9); Triglycerides 498 mg/dL (< 150); eGFR For African Americans > 60 (> 60); eGFR For Non-African Americans > 60 (> 60)
[2019-09-29 08:17] LABS: Estimated Average Glucose 349 mg/dl
[2019-09-29] MEDS ORDERED: Cholecalciferol (D-3) 1,000 UNIT (25MCG) TABLET PO SCH (09:00)
[2019-09-29] MEDS: Insulin LISPRO 300 UNITS/3 ML VIAL SQ SCH ×6 (09:43→20:45)
[2019-09-29] MEDS: Magnesium Oxide 400 MG TABLET PO SCH (09:44)
[2019-09-29] MEDS: Topiramate 25 MG TABLET PO SCH ×2 (09:45→20:44)
[2019-09-29] MEDS: risperiDONE 0.25 MG TABLET PO SCH (09:45)
[2019-09-29] MEDS: Nystatin POWDER 30 GM BOTTLE TP SCH ×2 (09:46→14:07)
[2019-09-29] MEDS: *HR* OxyCODONE Immed Rel 5 MG TABLET PO PRN (10:49)
[2019-09-29] MEDS ORDERED: Dextrose Gel 15 GM/37.5 ML TUBE PO PRN ×2 (13:10)
[2019-09-29] MEDS ORDERED: *HR* Dextrose 50 % in Water (Syg) 50 ML SYRINGE IVP PRN (13:10)
[2019-09-29] MEDS ORDERED: D5% in Water 1,000 ML IVC PRN (13:10)
[2019-09-29] MEDS: Miconazole 2% ointment 141 APPL/141 GM TUBE TP SCH ×2 (15:45→20:44)
[2019-09-29] MEDS ORDERED: *HR* HYDROmorphone (PF) 1 MG/ML SYRINGE IVP ONE (15:46)
[2019-09-29] MEDS: risperiDONE 1 MG TABLET PO SCH (20:44)
[2019-09-29] MEDS ORDERED: Insulin DETEMIR 100 UNIT/ML X5UNITS SQ SCH (21:00)
[2019-09-29] MEDS: traMADol 50 MG TABLET PO PRN (22:09)
[2019-09-30] MEDS: *HR* Heparin 5,000 UNIT/ML VIAL SQ SCH ×2 (06:50→15:46)
[2019-09-30 09:59] LABS: BUN/Creatinine Ratio 16 (6-26); Blood Urea Nitrogen 13 mg/dL (6-20); Calcium 8.9 mg/dL (8.6-10.3); Carbon Dioxide 30 mEq/L (23-29); Chloride 102 mEq/L (98-107); Glucose 289 mg/dL (70-105); Osmolality,Calculated 295 (280-300); Potassium 4.9 mEq/L (3.5-5.1); Sodium 137 mEq/L (136-145); eGFR For African Americans > 60 (> 60); eGFR For Non-African Americans > 60 (> 60)
[2019-09-30] MEDS: Topiramate 25 MG TABLET PO SCH (10:12)
[2019-09-30] MEDS: Magnesium Oxide 400 MG TABLET PO SCH (10:12)
[2019-09-30] MEDS: Cefepime HCl 2,000 MG in 0.9 % Sodium Chloride Mini Bag 100 ML IVPB SCH (10:13)
[2019-09-30] MEDS: risperiDONE 0.25 MG TABLET PO SCH (10:13)
[2019-09-30] MEDS: Insulin LISPRO 300 UNITS/3 ML VIAL SQ SCH ×4 (10:14→12:47)
[2019-09-30] MEDS: Miconazole 2% ointment 141 APPL/141 GM TUBE TP SCH (10:15)
[2019-09-30] MEDS: *HR* OxyCODONE Immed Rel 5 MG TABLET PO PRN (10:18)
[2019-09-30] MEDS ORDERED: Cholecalciferol (D-3) 1,000 UNIT (25MCG) TABLET PO SCH (10:30)
[2019-09-30 11:23] VITALS: BP 100/62
[2019-09-30] MEDS ORDERED: cephALEXin 500 MG CAPSULE PO SCH (15:00)
[2019-09-30] MEDS: traMADol 50 MG TABLET PO PRN (15:51)
[2019-09-30] MEDS ORDERED: Aminoglycoside Consult 1 EACH MC ONE (16:42)
[2019-09-30] MEDS ORDERED: Sulfamethoxazole/Trimeth DS 1 EACH TABLET PO SCH (21:00)
== END 2019-09-30 16:43 | disposition home health service (06) | DRG 603 ==
LOC: 3ANU 15:33 → EMEROOARM 15:33 → SUATTDRO 19:32 → 3ANU 20:25
PROVIDERS: ADMIT Family Medicine; ATTEND Family Medicine

== ENCOUNTER 2019-12-04 17:15 | Inpatient (IN) ==
[2019-12-04] MEDS ORDERED: Ondansetron 4 MG/2 ML VIAL IVP STA (17:31)
[2019-12-04 18:04] LABS: Basophils % 0.4 %; Eosinophils # 0.2 K/mcL (0.0-0.6); Eosinophils % 2.4 %; Hematocrit 40.8 % (35.3-44.9); Hemoglobin 13.4 g/dL (11.5-15.4); Immature Granulocytes % 0.3 % (0-4); Lymphocytes # 1.6 K/mcL (0.6-4.6); Lymphocytes % 22.2 %; Mean Corpuscular HGB Conc 32.8 g/dL (31.6-35.5); Mean Corpuscular Hemoglobin 28.9 pg (28.0-33.3); Mean Corpuscular Volume 87.9 fL (83.0-100.0); Mean Platelet Volume 10.6 fL (9.4-12.4); Monocytes # 0.4 K/mcL (0.0-1.3); Monocytes % 5.1 %; Neutrophils # 4.9 K/mcL (1.6-8.9); Platelet Count 172 K/mcL (140-400); Red Blood Count 4.64 M/mcL (3.82-4.97); Red Cell Distribution Width 15.3 % (11.5-14.5); Segmented Neutrophils % 69.6 %
[2019-12-04 18:25] LABS: Alanine Aminotransferase 13 Units/L (7-52); Albumin 3.5 g/dL (3.5-5.7); Alkaline Phosphatase 193 Units/L (34-104); Aspartate Amino Transferase 16 Units/L (13-39); BUN/Creatinine Ratio 20 (6-26); Bilirubin,Indirect 0.2 mg/dL (0.0-1.0); Bilirubin,Total 0.2 mg/dL (0.3-1.0); Blood Urea Nitrogen 16 mg/dL (6-20); Calcium 8.9 mg/dL (8.6-10.3); Carbon Dioxide 27 mEq/L (23-29); Chloride 93 mEq/L (98-107); Globulin 3.6 g/dL (2.4-3.5); Glucose 548 mg/dL (70-105); Osmolality,Calculated 294 (280-300); Sodium 129 mEq/L (136-145); Total Protein 7.1 g/dL (6.4-8.9); eGFR For African Americans > 60 (> 60); eGFR For Non-African Americans > 60 (> 60)
[2019-12-04 18:32] LABS: Troponin I < 0.03 ng/mL (< 0.04)
[2019-12-04] MEDS ORDERED: 0.9 % Sodium Chloride 500 ML IVC STA (18:48)
[2019-12-04] MEDS ORDERED: Insulin Regular, Human 100 UNIT/ML SQ ONE (18:48)
[2019-12-04] MEDS ORDERED: *HR* OxyCODONE/APAP 10/325 TABLET PO ONE (19:13)
[2019-12-04] MEDS ORDERED: Isovue-370 500 ML BOTTLE IVP ONE (20:31)
[2019-12-04 21:40] LABS: Bilirubin,Urine Negative (Negative); Blood,Urine Large (Negative); Clarity,Urine Cloudy (Clear); Color,Urine Yellow (Yellow); Glucose,Urine (UA) >=1000 mg/dL (Normal); Ketones,Urine Negative (Negative); Leukocyte Esterase,Urine Negative (Negative); Nitrite,Urine Positive (Negative); PH,Urine 6.5 pH Units (5.0-8.0); Protein,Urine Trace mg/dL (Neg-Trace); Specific Gravity,Urine > 1.030 (1.010-1.025); Urobilinogen,Urine Normal (Normal)
[2019-12-04 21:44] LABS: Bacteria,Urine Moderate per hpf (None-Few); Hyaline Casts,Urine None Seen per lpf (None-Few); RBC,Urine TNTC per hpf (0-3); Squamous Epithelial Cell,Urine Many per lpf (None-Few)
[2019-12-04] MEDS ORDERED: Piperacillin/Tazobactam 3.375 GM in Water for inj. (sterile) 20 ML IVP ONE (21:48)
[2019-12-04] MEDS ORDERED: Naloxone 0.4 MG/ML INJ IVP PRN ×2 (23:05→23:29)
[2019-12-04] MEDS ORDERED: Acetaminophen 325 MG TABLET PO PRN (23:05)
[2019-12-04] MEDS ORDERED: Ondansetron 4 MG/2 ML VIAL IVP PRN (23:05)
[2019-12-04] MEDS ORDERED: Dextrose Gel 15 GM/37.5 ML TUBE PO PRN ×2 (23:30)
[2019-12-04] MEDS ORDERED: *HR* Dextrose 50 % in Water (Syg) 50 ML SYRINGE IVP PRN (23:30)
[2019-12-04] MEDS ORDERED: D5% in Water 1,000 ML IVC PRN (23:30)
[2019-12-04] MEDS ORDERED: Insulin DETEMIR 100 UNIT/ML X5UNITS SQ ONE (23:32)
[2019-12-04] MEDS: *HR* OxyCODONE Immed Rel 5 MG TABLET PO PRN (23:59)
[2019-12-05 02:08] LABS: Basophils % 0.4 %; Eosinophils # 0.2 K/mcL (0.0-0.6); Eosinophils % 3.1 %; Hematocrit 39.3 % (35.3-44.9); Hemoglobin 12.9 g/dL (11.5-15.4); Immature Granulocytes % 0.4 % (0-4); Lymphocytes # 1.8 K/mcL (0.6-4.6); Mean Corpuscular HGB Conc 32.8 g/dL (31.6-35.5); Mean Corpuscular Hemoglobin 28.9 pg (28.0-33.3); Mean Corpuscular Volume 87.9 fL (83.0-100.0); Monocytes # 0.3 K/mcL (0.0-1.3); Monocytes % 4.5 %; Platelet Count 175 K/mcL (140-400); Red Blood Count 4.47 M/mcL (3.82-4.97); Red Cell Distribution Width 15.3 % (11.5-14.5); Segmented Neutrophils % 67.6 %; White Blood Count 7.3 K/mcL (4.3-11.1)
[2019-12-05 02:23] LABS: BUN/Creatinine Ratio 21 (6-26); Blood Urea Nitrogen 16 mg/dL (6-20); Calcium 8.8 mg/dL (8.6-10.3); Carbon Dioxide 28 mEq/L (23-29); Chloride 96 mEq/L (98-107); Glucose 347 mg/dL (70-105); Magnesium 1.4 mg/dL (1.6-2.6); Osmolality,Calculated 289 (280-300); Potassium 3.7 mEq/L (3.5-5.1); Sodium 132 mEq/L (136-145); eGFR For African Americans > 60 (> 60); eGFR For Non-African Americans > 60 (> 60)
[2019-12-05] MEDS: *HR* Heparin 5,000 UNIT/ML VIAL SQ SCH ×2 (05:09→17:30)
[2019-12-05] MEDS: Doxycycline 100 MG in 0.9 % Sodium Chloride Mini Bag 100 ML IVPB SCH ×2 (05:09→18:17)
[2019-12-05] MEDS: Ampicillin/Sulbactam 3,000 MG in 0.9 % Sodium Chloride Mini Bag 100 ML IVPB SCH ×3 (06:26→17:30)
[2019-12-05] MEDS: Insulin DETEMIR 100 UNIT/ML X5UNITS SQ SCH (08:42)
[2019-12-05] MEDS: Insulin LISPRO 300 UNITS/3 ML VIAL SQ SCH ×4 (08:42→17:29)
[2019-12-05] MEDS: *HR* OxyCODONE Immed Rel 5 MG TABLET PO PRN ×2 (12:53→18:51)
[2019-12-05] MEDS ORDERED: Permethrin Cream Rinse 60 ML LIQUID TP ONE (15:10)
[2019-12-05] MEDS ORDERED: Ketorolac 15 MG/ML VIAL IM ONE (20:14)
[2019-12-06] MEDS: Ampicillin/Sulbactam 3,000 MG in 0.9 % Sodium Chloride Mini Bag 100 ML IVPB SCH ×2 (01:07→05:46)
[2019-12-06] MEDS: *HR* OxyCODONE Immed Rel 5 MG TABLET PO PRN (03:40)
[2019-12-06 05:11] LABS: Hematocrit 40.9 % (35.3-44.9); Hemoglobin 13.1 g/dL (11.5-15.4); Mean Corpuscular Volume 90.7 fL (83.0-100.0); Platelet Count 180 K/mcL (140-400); Red Blood Count 4.51 M/mcL (3.82-4.97); Red Cell Distribution Width 15.4 % (11.5-14.5)
[2019-12-06 05:28] LABS: BUN/Creatinine Ratio 29 (6-26); Blood Urea Nitrogen 22 mg/dL (6-20); Carbon Dioxide 27 mEq/L (23-29); Chloride 97 mEq/L (98-107); Glucose 276 mg/dL (70-105); Osmolality,Calculated 287 (280-300); Potassium 4.2 mEq/L (3.5-5.1); Sodium 132 mEq/L (136-145); eGFR For African Americans > 60 (> 60); eGFR For Non-African Americans > 60 (> 60)
[2019-12-06] MEDS: *HR* Heparin 5,000 UNIT/ML VIAL SQ SCH (05:46)
[2019-12-06] MEDS: Doxycycline 100 MG in 0.9 % Sodium Chloride Mini Bag 100 ML IVPB SCH (06:17)
[2019-12-06] MEDS: Insulin LISPRO 300 UNITS/3 ML VIAL SQ SCH (07:33)
[2019-12-06] MEDS: Insulin DETEMIR 100 UNIT/ML X5UNITS SQ SCH (07:34)
[2019-12-06 07:41] VITALS: BP 121/81
== END 2019-12-06 12:10 | disposition home health service (06) | DRG 758 ==
LOC: 3BNU 17:15 → EMEROOARM 17:15 → SUATTDRO 22:27 → 3BNU 23:26
PROVIDERS: ADMIT Pharmacist; ATTEND Pharmacist

== ENCOUNTER 2019-12-26 11:24 | Observation (INO) ==
[2019-12-26] MEDS ORDERED: 0.9 % Sodium Chloride 1,000 ML IVC ONE (11:57)
[2019-12-26] MEDS ORDERED: Morphine Sulfate 2 MG/ML SYRINGE IVP ONE (11:57)
[2019-12-26] MEDS ORDERED: Ondansetron 4 MG/2 ML VIAL IVP ONE (11:57)
[2019-12-26] MEDS ORDERED: Isovue-370 500 ML BOTTLE IVP ONE (12:00)
[2019-12-26 12:29] LABS: Basophils % 0.5 %; Eosinophils # 0.2 K/mcL (0.0-0.6); Eosinophils % 1.9 %; Hematocrit 40.1 % (35.3-44.9); Hemoglobin 12.1 g/dL (11.5-15.4); Immature Granulocytes % 0.6 % (0-4); Lymphocytes # 1.1 K/mcL (0.6-4.6); Lymphocytes % 14.2 %; Mean Corpuscular HGB Conc 30.2 g/dL (31.6-35.5); Mean Corpuscular Hemoglobin 28.5 pg (28.0-33.3); Mean Corpuscular Volume 94.4 fL (83.0-100.0); Mean Platelet Volume 11.1 fL (9.4-12.4); Monocytes # 0.4 K/mcL (0.0-1.3); Monocytes % 4.6 %; Neutrophils # 6.2 K/mcL (1.6-8.9); Platelet Count 174 K/mcL (140-400); Red Blood Count 4.25 M/mcL (3.82-4.97); Red Cell Distribution Width 15.8 % (11.5-14.5); Segmented Neutrophils % 78.2 %; White Blood Count 7.9 K/mcL (4.3-11.1)
[2019-12-26 12:45] LABS: Alanine Aminotransferase 8 Units/L (7-52); Albumin 3.4 g/dL (3.5-5.7); Albumin/Globulin Ratio 0.9 (1.1-2.2); Alkaline Phosphatase 161 Units/L (34-104); Aspartate Amino Transferase 7 Units/L (13-39); BUN/Creatinine Ratio 17 (6-26); Bilirubin,Direct 0.1 mg/dL (0.0-0.2); Bilirubin,Indirect 0.2 mg/dL (0.0-1.0); Bilirubin,Total 0.3 mg/dL (0.3-1.0); Blood Urea Nitrogen 10 mg/dL (6-20); Carbon Dioxide 26 mEq/L (23-29); Chloride 101 mEq/L (98-107); Globulin 3.8 g/dL (2.4-3.5); Glucose 337 mg/dL (70-105); Lipase 28 Units/L (11-82); Osmolality,Calculated 292 (280-300); Potassium 3.7 mEq/L (3.5-5.1); Sodium 135 mEq/L (136-145); Total Protein 7.2 g/dL (6.4-8.9); eGFR For African Americans > 60 (> 60); eGFR For Non-African Americans > 60 (> 60)
[2019-12-26 14:30] LABS: Bilirubin,Urine Negative (Negative); Blood,Urine Negative (Negative); Color,Urine Yellow (Yellow); Glucose,Urine (UA) 250 mg/dL (Normal); Ketones,Urine Negative (Negative); Leukocyte Esterase,Urine Small (Negative); Nitrite,Urine Negative (Negative); Protein,Urine 30 mg/dL (Neg-Trace); Specific Gravity,Urine 1.023 (1.010-1.025); Urobilinogen,Urine Normal (Normal)
[2019-12-26 14:32] LABS: Bacteria,Urine None Seen per hpf (None-Few); Hyaline Casts,Urine None Seen per lpf (None-Few); Squamous Epithelial Cell,Urine Many per lpf (None-Few); WBC,Urine 30-50 per hpf (0-3)
[2019-12-26 14:35] LABS: Clarity,Urine Cloudy (Clear)
[2019-12-26 14:44] LABS: RBC,Urine 0-3 per hpf (0-3); Yeast,Urine Many per hpf (None Seen)
[2019-12-26] MEDS ORDERED: Naloxone 0.4 MG/ML INJ IVP PRN (16:58)
[2019-12-26] MEDS ORDERED: *HR* Promethazine 25 MG/ML VIAL IVP PRN (16:58)
[2019-12-26] MEDS ORDERED: Ondansetron ODT 4 MG TAB.RAPDIS SL PRN (16:58)
[2019-12-26] MEDS ORDERED: D5% in Water 1,000 ML IVC PRN (17:01)
[2019-12-26] MEDS ORDERED: Dextrose Gel 15 GM/37.5 ML TUBE PO PRN ×2 (17:01)
[2019-12-26] MEDS ORDERED: *HR* Dextrose 50 % in Water (Syg) 50 ML SYRINGE IVP PRN (17:01)
[2019-12-26] MEDS ORDERED: traZODone 50 MG TABLET PO PRN (17:04)
[2019-12-26] MEDS ORDERED: Acetaminophen 325 MG TABLET PO PRN (17:05)
[2019-12-26] MEDS ORDERED: Ipratropium/Albuterol Neb 3 ML IH PRN (17:16)
[2019-12-26 17:23] LABS: Magnesium 1.5 mg/dL (1.6-2.6); Phosphorous 2.3 mg/dL (2.7-4.5)
[2019-12-26] MEDS ORDERED: Insulin LISPRO 300 UNITS/3 ML VIAL SQ SCH (21:00)
[2019-12-26] MEDS ORDERED: *HR* HYDROcodone/Acet 5/325 mg TABLET PO ONE (23:56)
[2019-12-27 05:08] LABS: Hematocrit 38.1 % (35.3-44.9); Hemoglobin 11.6 g/dL (11.5-15.4); Mean Corpuscular HGB Conc 30.4 g/dL (31.6-35.5); Mean Corpuscular Hemoglobin 28.3 pg (28.0-33.3); Mean Corpuscular Volume 92.9 fL (83.0-100.0); Mean Platelet Volume 11.3 fL (9.4-12.4); Platelet Count 191 K/mcL (140-400); Red Cell Distribution Width 16.3 % (11.5-14.5); White Blood Count 7.4 K/mcL (4.3-11.1)
[2019-12-27 05:29] LABS: BUN/Creatinine Ratio 18 (6-26); Blood Urea Nitrogen 13 mg/dL (6-20); Calcium 8.7 mg/dL (8.6-10.3); Carbon Dioxide 27 mEq/L (23-29); Chloride 99 mEq/L (98-107); Glucose 279 mg/dL (70-105); Osmolality,Calculated 292 (280-300); Potassium 3.5 mEq/L (3.5-5.1); Sodium 136 mEq/L (136-145); eGFR For African Americans > 60 (> 60); eGFR For Non-African Americans > 60 (> 60)
[2019-12-27] MEDS ORDERED: Insulin LISPRO 300 UNITS/3 ML VIAL SQ SCH ×2 (07:30→08:00)
[2019-12-27 08:12] VITALS: BP 114/61
[2019-12-27] MEDS ORDERED: Magnesium Oxide 400 MG TABLET PO ONE (08:31)
[2019-12-27] MEDS ORDERED: risperiDONE 1 MG TABLET PO SCH (09:00)
[2019-12-27] MEDS ORDERED: Insulin DETEMIR 100 UNIT/ML X5UNITS SQ SCH (09:00)
[2019-12-27] MEDS ORDERED: Morphine Sulfate 2 MG/ML SYRINGE IVP ONE (10:15)
[2019-12-27 10:39] LABS: Magnesium 1.6 mg/dL (1.6-2.6); Phosphorous 4.5 mg/dL (2.7-4.5)
== END 2019-12-27 12:41 | disposition home health service (06) ==
LOC: 3ANU 11:24 → EMEROOARM 11:24 → SUATTDRO 16:32 → 3ANU 17:41
PROVIDERS: ADMIT Family Medicine; ATTEND Family Medicine

== ENCOUNTER 2020-01-11 15:10 | Observation (INO) ==
[2020-01-11 16:29] LABS: Red Cell Distribution Width 16.4 % (11.5-14.5)
[2020-01-11 16:31] LABS: Basophils % 0.7 %; Eosinophils # 0.2 K/mcL (0.0-0.6); Eosinophils % 2.6 %; Hematocrit 41.7 % (35.3-44.9); Hemoglobin 12.2 g/dL (11.5-15.4); Immature Platelets 3.7 % (1.1-6.1); Lymphocytes # 1.1 K/mcL (0.6-4.6); Lymphocytes % 19.9 %; Mean Corpuscular HGB Conc 29.3 g/dL (31.6-35.5); Mean Corpuscular Hemoglobin 28.4 pg (28.0-33.3); Monocytes # 0.3 K/mcL (0.0-1.3); Monocytes % 5.6 %; Platelet Count 198 K/mcL (140-400); Segmented Neutrophils % 70.2 %; White Blood Count 5.7 K/mcL (4.3-11.1)
[2020-01-11 16:58] LABS: BUN/Creatinine Ratio 12 (6-26); Blood Urea Nitrogen 11 mg/dL (6-20); Calcium 8.6 mg/dL (8.6-10.3); Carbon Dioxide 25 mEq/L (23-29); Chloride 100 mEq/L (98-107); Glucose 510 mg/dL (70-105); Osmolality,Calculated 302 (280-300); Potassium 4.5 mEq/L (3.5-5.1); Sodium 135 mEq/L (136-145); Troponin I < 0.03 ng/mL (< 0.04); eGFR For African Americans > 60 (> 60); eGFR For Non-African Americans > 60 (> 60)
[2020-01-11] MEDS ORDERED: 0.9 % Sodium Chloride 1,000 ML IVC ONE (17:00)
[2020-01-11] MEDS ORDERED: Insulin Human Regular 10 UNIT in 0.9 % Sodium Chloride 10 ML IV ONE (17:00)
[2020-01-11 17:15] LABS: Platelet Estimate Normal (Normal)
[2020-01-11] MEDS ORDERED: Ketorolac 15 MG/ML VIAL IVP ONE (17:27)
[2020-01-11] MEDS ORDERED: Furosemide 20 MG/2 ML VIAL IVP ONE (17:28)
[2020-01-11] MEDS ORDERED: Acetaminophen 325 MG TABLET PO PRN (17:31)
[2020-01-11] MEDS ORDERED: Ondansetron 4 MG/2 ML VIAL IVP PRN (17:31)
[2020-01-11] MEDS ORDERED: Naloxone 0.4 MG/ML INJ IVP PRN (17:31)
[2020-01-11] MEDS ORDERED: *HR* Dextrose 50 % in Water (Syg) 50 ML SYRINGE IVP PRN (17:34)
[2020-01-11] MEDS ORDERED: Dextrose Gel 15 GM/37.5 ML TUBE PO PRN ×2 (17:34)
[2020-01-11] MEDS ORDERED: D5% in Water 1,000 ML IVC PRN (17:34)
[2020-01-11] MEDS ORDERED: Isovue-370 500 ML BOTTLE IVP ONE (17:35)
[2020-01-11] MEDS ORDERED: traZODone 50 MG TABLET PO PRN (17:37)
[2020-01-11] MEDS ORDERED: Miconazole 2% ointment 141 APPL/141 GM TUBE TP PRN (17:37)
[2020-01-11 19:07] LABS: ABG Base Excess 5 mEq/L (-2 to 3); ABG HCO3 31 mEq/L (21-27); ABG Oxygen Saturation 91 % (95-98); ABG PCO2 51 mmHg (35-45); ABG PH 7.39 pH Units (7.32-7.45); ABG PO2 62 mmHg (85-104); ABG TCO2 33 mEq/L (20-26)
[2020-01-11] MEDS: Doxycycline 100 MG in 0.9 % Sodium Chloride Mini Bag 100 ML IVPB SCH (19:47)
[2020-01-11] MEDS: Ipratropium/Albuterol Neb 3 ML IH SCH (20:14)
[2020-01-11] MEDS: Furosemide 20 MG/2 ML VIAL IVP SCH (22:34)
[2020-01-11] MEDS: Insulin DETEMIR 100 UNIT/ML X5UNITS SQ SCH (22:34)
[2020-01-11] MEDS: risperiDONE 1 MG TABLET PO SCH (22:35)
[2020-01-11] MEDS: *HR* OxyCODONE Immed Rel 5 MG TABLET PO PRN (22:35)
[2020-01-11] MEDS: *HR* Heparin 5,000 UNIT/ML VIAL SQ SCH (22:35)
[2020-01-11] MEDS: Topiramate 25 MG TABLET PO SCH (22:35)
[2020-01-12] MEDS: Ipratropium/Albuterol Neb 3 ML IH SCH ×7 (00:20→23:29)
[2020-01-12 00:30] LABS: Adenovirus Not Detected (Not Detect); Bordetella Pertussis Not Detected (Not Detect); Chlamydophila pneumoniae Not Detected (Not Detect); Coronavirus 229E Not Detected (Not Detect); Coronavirus HKU1 Not Detected (Not Detect); Coronavirus NL63 Not Detected (Not Detect); Coronavirus OC43 Not Detected (Not Detect); Human Metapneumovirus Not Detected (Not Detect); Human Rhinovirus/Enterovirus Not Detected (Not Detect); Influenza A Subtype 2009 H1 Not Detected (Not Detect); Influenza B Not Detected (Not Detect); Mycoplasma pneumoniae Not Detected (Not Detect); Parainfluenza Virus 1 Not Detected (Not Detect); Parainfluenza Virus 2 Not Detected (Not Detect); Parainfluenza Virus 3 Not Detected (Not Detect); Parainfluenza Virus 4 Not Detected (Not Detect); Respiratory Syncytial Virus Not Detected (Not Detect)
[2020-01-12] MEDS: *HR* Heparin 5,000 UNIT/ML VIAL SQ SCH ×3 (04:44→20:29)
[2020-01-12] MEDS: Doxycycline 100 MG in 0.9 % Sodium Chloride Mini Bag 100 ML IVPB SCH ×2 (04:54→17:00)
[2020-01-12 05:15] LABS: Basophils % 0.3 %; Eosinophils # 0.2 K/mcL (0.0-0.6); Eosinophils % 2.6 %; Hematocrit 36.5 % (35.3-44.9); Hemoglobin 10.7 g/dL (11.5-15.4); Immature Granulocytes % 0.9 % (0-4); Lymphocytes # 1.3 K/mcL (0.6-4.6); Lymphocytes % 22.8 %; Mean Corpuscular HGB Conc 29.3 g/dL (31.6-35.5); Mean Corpuscular Hemoglobin 28.6 pg (28.0-33.3); Mean Corpuscular Volume 97.6 fL (83.0-100.0); Mean Platelet Volume 11.1 fL (9.4-12.4); Monocytes # 0.4 K/mcL (0.0-1.3); Monocytes % 6.2 %; Neutrophils # 3.9 K/mcL (1.6-8.9); Platelet Count 202 K/mcL (140-400); Red Blood Count 3.74 M/mcL (3.82-4.97); Red Cell Distribution Width 16.4 % (11.5-14.5); Segmented Neutrophils % 67.2 %; White Blood Count 5.8 K/mcL (4.3-11.1)
[2020-01-12 05:17] LABS: INR 1.1; Prothrombin Time 12.3 Seconds (9.4-12.1)
[2020-01-12 05:19] LABS: Activated Partial Thrombo Time 31.9 Seconds (26.0-36.0)
[2020-01-12 05:31] LABS: Alanine Aminotransferase 8 Units/L (7-52); Albumin 3.1 g/dL (3.5-5.7); Albumin/Globulin Ratio 0.9 (1.1-2.2); Alkaline Phosphatase 202 Units/L (34-104); Aspartate Amino Transferase 9 Units/L (13-39); BUN/Creatinine Ratio 17 (6-26); Bilirubin,Total 0.3 mg/dL (0.3-1.0); Blood Urea Nitrogen 13 mg/dL (6-20); Calcium 8.3 mg/dL (8.6-10.3); Carbon Dioxide 32 mEq/L (23-29); Chloride 99 mEq/L (98-107); Chol/HDL Ratio 4.9 (0-4.9); Cholesterol 131 mg/dL (< 200); Globulin 3.5 g/dL (2.4-3.5); Glucose 426 mg/dL (70-105); HDL Cholesterol 27 mg/dL (40-59); LDL Cholesterol,Calculated 31 mg/dL (0-99); Magnesium 1.4 mg/dL (1.6-2.6); Osmolality,Calculated 302 (280-300); Phosphorous 4.5 mg/dL (2.7-4.5); Potassium 3.9 mEq/L (3.5-5.1); Sodium 137 mEq/L (136-145); Total Protein 6.6 g/dL (6.4-8.9); Triglycerides 366 mg/dL (< 150); eGFR For African Americans > 60 (> 60); eGFR For Non-African Americans > 60 (> 60)
[2020-01-12] MEDS ORDERED: Insulin LISPRO 300 UNITS/3 ML VIAL SQ SCH (07:30)
[2020-01-12] MEDS ORDERED: predniSONE 20 MG TABLET PO SCH (09:00)
[2020-01-12] MEDS: Magnesium Oxide 400 MG TABLET PO SCH (09:13)
[2020-01-12] MEDS: *HR* OxyCODONE Immed Rel 5 MG TABLET PO PRN ×2 (09:13→17:16)
[2020-01-12] MEDS: Aspirin Enteric Coated 81 MG Tablet PO SCH (09:13)
[2020-01-12] MEDS: risperiDONE 0.25 MG TABLET PO SCH (09:14)
[2020-01-12] MEDS: Topiramate 25 MG TABLET PO SCH ×2 (09:14→20:29)
[2020-01-12] MEDS: Furosemide 20 MG/2 ML VIAL IVP SCH ×2 (09:14→20:06)
[2020-01-12] MEDS: Insulin LISPRO 300 UNITS/3 ML VIAL SQ SCH ×7 (09:14→20:07)
[2020-01-12] MEDS: MethylPREDNISolone 40 MG/ML VIAL IVP SCH ×2 (09:25→17:00)
[2020-01-12] MEDS: Insulin DETEMIR 100 UNIT/ML X5UNITS SQ SCH (09:25)
[2020-01-12] MEDS ORDERED: Bismuth Subsalicylate 262 MG TABLET PO PRN (12:28)
[2020-01-12] MEDS ORDERED: NON-FORMULARY MEDICATION 1 EACH EACH (Diclofenac Sodium [Voltaren] 1 APPL) TP PRN (12:28)
[2020-01-12] MEDS: risperiDONE 1 MG TABLET PO SCH (20:06)
[2020-01-12] MEDS: Nystatin POWDER 30 GM BOTTLE TP SCH (20:10)
[2020-01-12] MEDS ORDERED: Insulin DETEMIR 100 UNIT/ML X5UNITS SQ SCH (21:00)
[2020-01-13] MEDS: Insulin LISPRO 300 UNITS/3 ML VIAL SQ SCH ×7 (00:18→12:34)
[2020-01-13] MEDS: Ipratropium/Albuterol Neb 3 ML IH SCH ×3 (04:32→11:15)
[2020-01-13] MEDS: *HR* Heparin 5,000 UNIT/ML VIAL SQ SCH ×2 (06:00→13:22)
[2020-01-13] MEDS: MethylPREDNISolone 40 MG/ML VIAL IVP SCH (06:01)
[2020-01-13] MEDS: Doxycycline 100 MG in 0.9 % Sodium Chloride Mini Bag 100 ML IVPB SCH (06:03)
[2020-01-13 06:24] LABS: Basophils % 0.1 %; Eosinophils % 0.1 %; Hematocrit 37.8 % (35.3-44.9); Immature Granulocytes % 0.7 % (0-4); Lymphocytes # 0.8 K/mcL (0.6-4.6); Lymphocytes % 11.5 %; Mean Corpuscular HGB Conc 29.1 g/dL (31.6-35.5); Mean Corpuscular Hemoglobin 28.4 pg (28.0-33.3); Mean Corpuscular Volume 97.7 fL (83.0-100.0); Mean Platelet Volume 11.1 fL (9.4-12.4); Monocytes # 0.4 K/mcL (0.0-1.3); Monocytes % 5.8 %; Neutrophils # 5.8 K/mcL (1.6-8.9); Platelet Count 233 K/mcL (140-400); Red Blood Count 3.87 M/mcL (3.82-4.97); Red Cell Distribution Width 16.2 % (11.5-14.5); Segmented Neutrophils % 81.8 %; White Blood Count 7.1 K/mcL (4.3-11.1)
[2020-01-13] MEDS: Magnesium Oxide 400 MG TABLET PO SCH (08:40)
[2020-01-13] MEDS: Furosemide 20 MG/2 ML VIAL IVP SCH (08:40)
[2020-01-13] MEDS: Aspirin Enteric Coated 81 MG Tablet PO SCH (08:40)
[2020-01-13] MEDS: risperiDONE 0.25 MG TABLET PO SCH (08:40)
[2020-01-13] MEDS: Topiramate 25 MG TABLET PO SCH (08:41)
[2020-01-13] MEDS: Nystatin POWDER 30 GM BOTTLE TP SCH (08:41)
[2020-01-13] MEDS: *HR* OxyCODONE Immed Rel 5 MG TABLET PO PRN (08:48)
[2020-01-13] MEDS ORDERED: Insulin DETEMIR 100 UNIT/ML X5UNITS SQ SCH (09:00)
[2020-01-13] MEDS ORDERED: lisinopriL 10 MG TABLET PO SCH (09:00)
[2020-01-13 09:13] LABS: BUN/Creatinine Ratio 27 (6-26); Blood Urea Nitrogen 20 mg/dL (6-20); Calcium 9.3 mg/dL (8.6-10.3); Carbon Dioxide 32 mEq/L (23-29); Chloride 97 mEq/L (98-107); Glucose 362 mg/dL (70-105); Magnesium 1.8 mg/dL (1.6-2.6); Osmolality,Calculated 297 (280-300); Phosphorous 3.2 mg/dL (2.7-4.5); Potassium 4.5 mEq/L (3.5-5.1); Sodium 135 mEq/L (136-145); eGFR For African Americans > 60 (> 60); eGFR For Non-African Americans > 60 (> 60)
[2020-01-13] MEDS ORDERED: Ketorolac 15 MG/ML VIAL IVP ONE (10:46)
[2020-01-13 11:12] VITALS: BP 116/55
[2020-01-15] MEDS ORDERED: Ergocalciferol (VIT D2) 50,000 UNIT (1.25MG) CAP PO SCH (17:37)
== END 2020-01-13 16:48 | disposition home health service (06) ==
LOC: 3BNU 15:10 → EMEROOARM 15:10 → SUATTDRO 19:15 → 3BNU 20:27
PROVIDERS: ADMIT Internal Medicine; ATTEND Internal Medicine

== ENCOUNTER 2020-01-17 13:40 | Observation (INO) ==
[2020-01-17 14:38] LABS: Prothrombin Time 11.5 Seconds (9.4-12.1)
[2020-01-17 14:40] LABS: Basophils % 0.3 %; Eosinophils % 0.3 %; Hematocrit 45.4 % (35.3-44.9); Hemoglobin 13.7 g/dL (11.5-15.4); Immature Granulocytes % 0.8 % (0-4); Lymphocytes # 0.7 K/mcL (0.6-4.6); Lymphocytes % 7.4 %; Mean Corpuscular HGB Conc 30.2 g/dL (31.6-35.5); Mean Corpuscular Hemoglobin 28.3 pg (28.0-33.3); Mean Corpuscular Volume 93.8 fL (83.0-100.0); Mean Platelet Volume 11.6 fL (9.4-12.4); Monocytes # 0.2 K/mcL (0.0-1.3); Monocytes % 2.1 %; Neutrophils # 8.2 K/mcL (1.6-8.9); Platelet Count 221 K/mcL (140-400); Red Blood Count 4.84 M/mcL (3.82-4.97); Segmented Neutrophils % 89.1 %; White Blood Count 9.2 K/mcL (4.3-11.1)
[2020-01-17 14:41] LABS: Activated Partial Thrombo Time 30.2 Seconds (26.0-36.0)
[2020-01-17 15:26] LABS: BUN/Creatinine Ratio 25 (6-26); Blood Urea Nitrogen 16 mg/dL (6-20); Calcium 9.6 mg/dL (8.6-10.3); Carbon Dioxide 28 mEq/L (23-29); Chloride 96 mEq/L (98-107); Glucose 374 mg/dL (70-105); Osmolality,Calculated 296 (280-300); Potassium 4.3 mEq/L (3.5-5.1); Sodium 135 mEq/L (136-145); eGFR For African Americans > 60 (> 60); eGFR For Non-African Americans > 60 (> 60)
[2020-01-17 15:52] LABS: Troponin I < 0.03 ng/mL (< 0.04)
[2020-01-17] MEDS ORDERED: Acetaminophen 325 MG TABLET PO PRN (16:37)
[2020-01-17] MEDS ORDERED: Ondansetron 4 MG/2 ML VIAL IVP PRN (16:37)
[2020-01-17] MEDS ORDERED: Mag Hydrox/Al Hydrox/Simeth 30 ML UDC PO PRN (16:37)
[2020-01-17] MEDS ORDERED: Naloxone 0.4 MG/ML INJ IVP PRN (16:37)
[2020-01-17] MEDS ORDERED: MOM Conc 10 ML UD.LIQ PO PRN (16:37)
[2020-01-17] MEDS ORDERED: *HR* Promethazine 25 MG/ML VIAL IVP PRN (16:37)
[2020-01-17] MEDS ORDERED: D5% in Water 1,000 ML IVC PRN (16:59)
[2020-01-17] MEDS ORDERED: *HR* Dextrose 50 % in Water (Syg) 50 ML SYRINGE IVP PRN (16:59)
[2020-01-17] MEDS ORDERED: Dextrose Gel 15 GM/37.5 ML TUBE PO PRN ×2 (16:59)
[2020-01-17] MEDS: Aspirin Enteric Coated 81 MG Tablet PO SCH (18:17)
[2020-01-17] MEDS: *HR* Heparin 5,000 UNIT/ML VIAL SQ SCH (18:17)
[2020-01-17] MEDS ORDERED: Perflutren Lipid Microsphere 1.3 ML in 0.9 % Sodium Chloride 8.7 ML IVP ONE (19:04)
[2020-01-17] MEDS ORDERED: Insulin LISPRO 300 UNITS/3 ML VIAL SQ SCH (21:00)
[2020-01-18 02:56] LABS: Basophils % 0.2 %; Eosinophils # 0.2 K/mcL (0.0-0.6); Eosinophils % 1.8 %; Hematocrit 40.5 % (35.3-44.9); Hemoglobin 12.2 g/dL (11.5-15.4); Immature Granulocytes % 0.7 % (0-4); Lymphocytes # 1.8 K/mcL (0.6-4.6); Lymphocytes % 21.2 %; Mean Corpuscular HGB Conc 30.1 g/dL (31.6-35.5); Mean Corpuscular Hemoglobin 28.6 pg (28.0-33.3); Mean Corpuscular Volume 94.8 fL (83.0-100.0); Monocytes # 0.4 K/mcL (0.0-1.3); Monocytes % 4.3 %; Platelet Count 224 K/mcL (140-400); Red Blood Count 4.27 M/mcL (3.82-4.97); Segmented Neutrophils % 71.8 %; White Blood Count 8.3 K/mcL (4.3-11.1)
[2020-01-18 03:16] LABS: BUN/Creatinine Ratio 22 (6-26); Blood Urea Nitrogen 16 mg/dL (6-20); Calcium 9.1 mg/dL (8.6-10.3); Carbon Dioxide 32 mEq/L (23-29); Chloride 100 mEq/L (98-107); Glucose 297 mg/dL (70-105); Osmolality,Calculated 296 (280-300); Potassium 3.3 mEq/L (3.5-5.1); Sodium 137 mEq/L (136-145); eGFR For African Americans > 60 (> 60); eGFR For Non-African Americans > 60 (> 60)
[2020-01-18] MEDS ORDERED: Acetaminophen IV 1,000 MG/100 ML INFUS..BTL IVPB ONE (06:06)
[2020-01-18] MEDS: *HR* Heparin 5,000 UNIT/ML VIAL SQ SCH ×2 (06:10→17:11)
[2020-01-18] MEDS: Insulin LISPRO 300 UNITS/3 ML VIAL SQ SCH ×3 (09:00→17:11)
[2020-01-18] MEDS: Aspirin Enteric Coated 81 MG Tablet PO SCH (09:00)
[2020-01-18 12:38] VITALS: BP 116/65
== END 2020-01-18 17:59 | disposition home health service (06) ==
LOC: EMEROOARM 13:40 → 3BNU 13:40
PROVIDERS: ADMIT Internal Medicine; ATTEND Internal Medicine

== ENCOUNTER 2020-04-03 19:57 | Inpatient (IN) ==
[2020-04-03] MEDS ORDERED: Isovue-370 500 ML BOTTLE IVP ONE (20:28)
[2020-04-03] MEDS ORDERED: Ondansetron 4 MG/2 ML VIAL IVP ONE (20:28)
[2020-04-03] MEDS ORDERED: Ketorolac 15 MG/ML VIAL IVP ONE (20:28)
[2020-04-03] MEDS ORDERED: 0.9 % Sodium Chloride 1,000 ML IV ONE (21:25)
[2020-04-03 21:35] LABS: Basophils % 0.4 %
[2020-04-03 21:37] LABS: Eosinophils # 0.1 K/mcL (0.0-0.6); Eosinophils % 2.7 %; Hematocrit 41.2 % (35.3-44.9); Immature Granulocytes % 0.4 % (0-4); Lymphocytes # 1.1 K/mcL (0.6-4.6); Lymphocytes % 20.5 %; Mean Corpuscular HGB Conc 29.1 g/dL (31.6-35.5); Mean Corpuscular Hemoglobin 26.5 pg (28.0-33.3); Mean Corpuscular Volume 90.9 fL (83.0-100.0); Mean Platelet Volume 10.9 fL (9.4-12.4); Monocytes # 0.3 K/mcL (0.0-1.3); Monocytes % 6.4 %; Neutrophils # 3.6 K/mcL (1.6-8.9); Platelet Count 220 K/mcL (140-400); Red Blood Count 4.53 M/mcL (3.82-4.97); Segmented Neutrophils % 69.6 %; White Blood Count 5.1 K/mcL (4.3-11.1)
[2020-04-03 21:57] LABS: Alanine Aminotransferase 6 Units/L (7-52); Albumin 2.7 g/dL (3.5-5.7); Albumin/Globulin Ratio 0.8 (1.1-2.2); Alkaline Phosphatase 159 Units/L (34-104); Aspartate Amino Transferase 9 Units/L (13-39); BUN/Creatinine Ratio 9 (6-26); Bilirubin,Total 0.4 mg/dL (0.3-1.0); Blood Urea Nitrogen 5 mg/dL (6-20); Calcium 8.4 mg/dL (8.6-10.3); Carbon Dioxide 34 mEq/L (23-29); Chloride 98 mEq/L (98-107); Globulin 3.6 g/dL (2.4-3.5); Glucose 392 mg/dL (70-105); Osmolality,Calculated 296 (280-300); Potassium 3.3 mEq/L (3.5-5.1); Sodium 136 mEq/L (136-145); Total Protein 6.3 g/dL (6.4-8.9); Troponin I < 0.03 ng/mL (< 0.04); eGFR For African Americans > 60 (> 60); eGFR For Non-African Americans > 60 (> 60)
[2020-04-03 21:58] LABS: Platelet Estimate Normal (Normal)
[2020-04-03 22:06] LABS: Lipase 66 Units/L (11-82)
[2020-04-03 22:58] LABS: Bilirubin,Urine Negative (Negative); Blood,Urine Negative (Negative); Clarity,Urine Clear (Clear); Color,Urine Yellow (Yellow); Glucose,Urine (UA) >=1000 mg/dL (Normal); Ketones,Urine Negative (Negative); Leukocyte Esterase,Urine Negative (Negative); Nitrite,Urine Negative (Negative); Protein,Urine 100 mg/dL (Neg-Trace); Specific Gravity,Urine > 1.030 (1.010-1.025); Urobilinogen,Urine Normal (Normal)
[2020-04-03 22:59] LABS: Bacteria,Urine Few per hpf (None-Few); Hyaline Casts,Urine None Seen per lpf (None-Few); RBC,Urine 0-3 per hpf (0-3); Squamous Epithelial Cell,Urine Many per lpf (None-Few)
[2020-04-03] MEDS ORDERED: *HR* FentaNYL (PF) 100 MCG/2 ML VIAL IVP ONE (23:25)
[2020-04-03] MEDS ORDERED: Naloxone 0.4 MG/ML INJ IVP PRN (23:57)
[2020-04-03] MEDS ORDERED: Ondansetron 4 MG/2 ML VIAL IVP PRN (23:57)
[2020-04-04] MEDS ORDERED: D5% in Water 1,000 ML IVC PRN (01:00)
[2020-04-04] MEDS ORDERED: Dextrose Gel 15 GM/37.5 ML TUBE PO PRN ×2 (01:00)
[2020-04-04] MEDS ORDERED: *HR* Dextrose 50 % in Water (Syg) 50 ML SYRINGE IVP PRN (01:00)
[2020-04-04 01:53] LABS: Basophils % 0.6 %; Eosinophils # 0.2 K/mcL (0.0-0.6); Eosinophils % 3.2 %; Hematocrit 39.2 % (35.3-44.9); Immature Granulocytes % 0.4 % (0-4); Lymphocytes # 1.1 K/mcL (0.6-4.6); Lymphocytes % 23.1 %; Mean Corpuscular HGB Conc 28.1 g/dL (31.6-35.5); Mean Corpuscular Volume 92.7 fL (83.0-100.0); Mean Platelet Volume 10.7 fL (9.4-12.4); Monocytes # 0.3 K/mcL (0.0-1.3); Monocytes % 7.1 %; Platelet Count 224 K/mcL (140-400); Red Blood Count 4.23 M/mcL (3.82-4.97); Red Cell Distribution Width 17.1 % (11.5-14.5); Segmented Neutrophils % 65.6 %; White Blood Count 4.8 K/mcL (4.3-11.1)
[2020-04-04 01:54] LABS: Neutrophils # 3.2 K/mcL (1.6-8.9)
[2020-04-04] MEDS: Ringers Solution, Lactated 1,000 ML IVC SCH ×4 (01:54→23:53)
[2020-04-04] MEDS: Insulin LISPRO 300 UNITS/3 ML VIAL SQ SCH ×6 (02:03→23:58)
[2020-04-04 02:11] LABS: Magnesium 1.3 mg/dL (1.6-2.6)
[2020-04-04 02:13] LABS: Alanine Aminotransferase 6 Units/L (7-52); Albumin 2.6 g/dL (3.5-5.7); Albumin/Globulin Ratio 0.8 (1.1-2.2); Alkaline Phosphatase 148 Units/L (34-104); Aspartate Amino Transferase 8 Units/L (13-39); BUN/Creatinine Ratio 10 (6-26); Bilirubin,Total 0.3 mg/dL (0.3-1.0); Blood Urea Nitrogen 5 mg/dL (6-20); Carbon Dioxide 31 mEq/L (23-29); Chloride 100 mEq/L (98-107); Globulin 3.3 g/dL (2.4-3.5); Glucose 352 mg/dL (70-105); Magnesium 1.3 mg/dL (1.6-2.6); Osmolality,Calculated 295 (280-300); Potassium 3.3 mEq/L (3.5-5.1); Sodium 137 mEq/L (136-145); Total Protein 5.9 g/dL (6.4-8.9); eGFR For African Americans > 60 (> 60); eGFR For Non-African Americans > 60 (> 60)
[2020-04-04 02:22] LABS: Platelet Estimate Normal (Normal)
[2020-04-04] MEDS: *HR* Heparin 5,000 UNIT/ML VIAL SQ SCH ×3 (05:55→19:48)
[2020-04-04] MEDS ORDERED: Acetaminophen 325 MG TABLET PO PRN (11:21)
[2020-04-05] MEDS: *HR* Heparin 5,000 UNIT/ML VIAL SQ SCH ×3 (05:22→20:39)
[2020-04-05] MEDS: Insulin LISPRO 300 UNITS/3 ML VIAL SQ SCH ×6 (05:58→21:48)
[2020-04-05 06:55] LABS: Alanine Aminotransferase 5 Units/L (7-52); Albumin/Globulin Ratio 0.8 (1.1-2.2); Alkaline Phosphatase 158 Units/L (34-104); Aspartate Amino Transferase 9 Units/L (13-39); BUN/Creatinine Ratio 9 (6-26); Bilirubin,Total 0.3 mg/dL (0.3-1.0); Blood Urea Nitrogen 6 mg/dL (6-20); Calcium 8.1 mg/dL (8.6-10.3); Carbon Dioxide 32 mEq/L (23-29); Chloride 101 mEq/L (98-107); Globulin 3.6 g/dL (2.4-3.5); Glucose 279 mg/dL (70-105); Magnesium 1.8 mg/dL (1.6-2.6); Osmolality,Calculated 292 (280-300); Phosphorous 6.3 mg/dL (2.7-4.5); Potassium 4.6 mEq/L (3.5-5.1); Sodium 137 mEq/L (136-145); Total Protein 6.6 g/dL (6.4-8.9); eGFR For African Americans > 60 (> 60); eGFR For Non-African Americans > 60 (> 60)
[2020-04-05 07:12] LABS: Basophils % 0.3 %; Immature Granulocytes % 0.5 % (0-4); Red Cell Distribution Width 17.5 % (11.5-14.5); Segmented Neutrophils % 84.2 %
[2020-04-05 07:14] LABS: Eosinophils % 0.5 %; Hematocrit 43.6 % (35.3-44.9); Hemoglobin 11.6 g/dL (11.5-15.4); Lymphocytes # 0.6 K/mcL (0.6-4.6); Mean Corpuscular HGB Conc 26.6 g/dL (31.6-35.5); Mean Corpuscular Hemoglobin 26.4 pg (28.0-33.3); Mean Platelet Volume 10.3 fL (9.4-12.4); Monocytes # 0.4 K/mcL (0.0-1.3); Monocytes % 5.5 %; Neutrophils # 5.4 K/mcL (1.6-8.9); Platelet Count 234 K/mcL (140-400); Red Blood Count 4.39 M/mcL (3.82-4.97); White Blood Count 6.4 K/mcL (4.3-11.1)
[2020-04-05 07:24] LABS: Mean Corpuscular Volume 99.3 fL (83.0-100.0)
[2020-04-05] MEDS ORDERED: (Diclofenac Sodium [Voltaren] 2 GM) TP PRN (09:09)
[2020-04-05] MEDS ORDERED: traZODone 50 MG TABLET PO PRN (09:09)
[2020-04-05] MEDS ORDERED: Furosemide 40 MG/4 ML VIAL IVP ONE (10:27)
[2020-04-05 10:29] LABS: ABG Base Excess 2 mEq/L (-2 to 3); ABG HCO3 33 mEq/L (21-27); ABG Oxygen Saturation 93 % (95-98); ABG PCO2 87 mmHg (35-45); ABG PH 7.19 pH Units (7.32-7.45); ABG PO2 87 mmHg (85-104); ABG TCO2 36 mEq/L (20-26)
[2020-04-05] MEDS: Ringers Solution, Lactated 1,000 ML IVC SCH (10:49)
[2020-04-05] MEDS: Levalbuterol Neb 1.25 MG/3 ML IH SCH ×3 (11:45→21:49)
[2020-04-05 11:52] LABS: Lipase 43 Units/L (11-82)
[2020-04-05 12:13] LABS: VBG HCO3 33 mEq/L (21-27); VBG PCO2 80 mmHg (41-51); VBG PH 7.23 pH Units (7.32-7.42); VBG PO2 158 mmHg (25-50)
[2020-04-05] MEDS: risperiDONE 0.25 MG TABLET PO SCH (13:16)
[2020-04-05] MEDS: Aspirin Enteric Coated 81 MG Tablet PO SCH ×3 (13:16→18:07)
[2020-04-05] MEDS: Topiramate 25 MG TABLET PO SCH ×2 (13:16→20:36)
[2020-04-05] MEDS: calcium polycarbophiL 625 MG TABLET PO SCH ×2 (13:16→18:08)
[2020-04-05] MEDS: MethylPREDNISolone 40 MG/ML VIAL IVP SCH ×2 (13:25→19:31)
[2020-04-05] MEDS: Doxycycline 100 MG in 0.9 % Sodium Chloride Mini Bag 100 ML IVPB SCH ×2 (13:25→23:40)
[2020-04-05] MEDS: cefTRIAXone 1,000 MG in Water for inj. (sterile) 10 ML IVP SCH (15:03)
[2020-04-05] MEDS: Ketorolac 15 MG/ML VIAL IVP PRN ×2 (15:04→21:57)
[2020-04-05] MEDS: *HR* Insulin Regular U-500 500 UNIT/ML SQ SCH ×2 (15:40→20:38)
[2020-04-05] MEDS: Nystatin POWDER 30 GM BOTTLE TP SCH ×2 (15:41→20:37)
[2020-04-05] MEDS: risperiDONE 1 MG TABLET PO SCH (20:37)
[2020-04-05] MEDS ORDERED: Insulin DETEMIR 100 UNIT/ML X5UNITS SQ SCH (21:00)
[2020-04-06] MEDS: MethylPREDNISolone 40 MG/ML VIAL IVP SCH ×2 (03:29→11:41)
[2020-04-06] MEDS: Levalbuterol Neb 1.25 MG/3 ML IH SCH ×4 (04:12→22:24)
[2020-04-06] MEDS: *HR* Heparin 5,000 UNIT/ML VIAL SQ SCH ×3 (05:41→21:13)
[2020-04-06 05:50] LABS: Hemoglobin 11.5 g/dL (11.5-15.4); Immature Granulocytes % 0.6 % (0-4); Lymphocytes # 0.5 K/mcL (0.6-4.6); Lymphocytes % 8.8 %; Mean Corpuscular HGB Conc 28.8 g/dL (31.6-35.5); Mean Corpuscular Hemoglobin 26.4 pg (28.0-33.3); Mean Platelet Volume 11.3 fL (9.4-12.4); Monocytes # 0.1 K/mcL (0.0-1.3); Monocytes % 2.5 %; Neutrophils # 4.6 K/mcL (1.6-8.9); Platelet Count 213 K/mcL (140-400); Red Blood Count 4.35 M/mcL (3.82-4.97); Red Cell Distribution Width 16.9 % (11.5-14.5); Segmented Neutrophils % 88.1 %; White Blood Count 5.2 K/mcL (4.3-11.1)
[2020-04-06 06:18] LABS: Alanine Aminotransferase 5 Units/L (7-52); Albumin/Globulin Ratio 0.8 (1.1-2.2); Alkaline Phosphatase 164 Units/L (34-104); Aspartate Amino Transferase 8 Units/L (13-39); BUN/Creatinine Ratio 18 (6-26); Bilirubin,Total 0.4 mg/dL (0.3-1.0); Blood Urea Nitrogen 13 mg/dL (6-20); Calcium 8.5 mg/dL (8.6-10.3); Carbon Dioxide 33 mEq/L (23-29); Chloride 98 mEq/L (98-107); Globulin 3.7 g/dL (2.4-3.5); Glucose 252 mg/dL (70-105); Magnesium 1.7 mg/dL (1.6-2.6); Osmolality,Calculated 291 (280-300); Phosphorous 2.7 mg/dL (2.7-4.5); Potassium 4.5 mEq/L (3.5-5.1); Sodium 136 mEq/L (136-145); Total Protein 6.7 g/dL (6.4-8.9); eGFR For African Americans > 60 (> 60); eGFR For Non-African Americans > 60 (> 60)
[2020-04-06 06:19] LABS: Hypochromasia Present (Not Present)
[2020-04-06 06:20] LABS: Anisocytosis 1+ (Not Present); Stomatocytes 1+ (Not Present)
[2020-04-06] MEDS: Aspirin Enteric Coated 81 MG Tablet PO SCH (08:18)
[2020-04-06] MEDS: Magnesium Oxide 400 MG TABLET PO SCH (08:19)
[2020-04-06] MEDS: risperiDONE 0.25 MG TABLET PO SCH (08:19)
[2020-04-06] MEDS: Topiramate 25 MG TABLET PO SCH ×2 (08:19→19:48)
[2020-04-06] MEDS: cefTRIAXone 1,000 MG in Water for inj. (sterile) 10 ML IVP SCH (08:20)
[2020-04-06] MEDS: *HR* Insulin Regular U-500 500 UNIT/ML SQ SCH (08:21)
[2020-04-06] MEDS: Insulin LISPRO 300 UNITS/3 ML VIAL SQ SCH ×6 (08:21→21:14)
[2020-04-06] MEDS: calcium polycarbophiL 625 MG TABLET PO SCH (08:39)
[2020-04-06 09:39] LABS: ABG HCO3 36 mEq/L (21-27); ABG PCO2 70 mmHg (35-45); ABG PO2 92 mmHg (85-104)
[2020-04-06 09:40] LABS: ABG Oxygen Saturation 96 % (95-98)
[2020-04-06 09:41] LABS: ABG PH 7.32 pH Units (7.32-7.45)
[2020-04-06] MEDS: Doxycycline 100 MG in 0.9 % Sodium Chloride Mini Bag 100 ML IVPB SCH (11:42)
[2020-04-06] MEDS: Nystatin POWDER 30 GM BOTTLE TP SCH ×3 (11:42→19:49)
[2020-04-06] MEDS: Piperacillin/Tazobactam 3.375 GM in 0.9 % Sodium Chloride Mini Bag 100 ML IVPB SCH ×2 (12:56→19:48)
[2020-04-06 13:17] LABS: Estimated Average Glucose 324 mg/dl
[2020-04-06] MEDS ORDERED: Methyl Salicylate/Menthol 57 APPL/57 GM TUBE TP PRN (14:00)
[2020-04-06] MEDS: Ketorolac 15 MG/ML VIAL IVP PRN ×2 (16:19→23:16)
[2020-04-06] MEDS: Doxycycline 100 MG CAPSULE PO SCH (19:48)
[2020-04-06] MEDS: risperiDONE 1 MG TABLET PO SCH (19:48)
[2020-04-06] MEDS ORDERED: Insulin DETEMIR 100 UNIT/ML X5UNITS SQ SCH (21:00)
[2020-04-07] MEDS: Levalbuterol Neb 1.25 MG/3 ML IH SCH ×2 (03:54→10:47)
[2020-04-07] MEDS: Piperacillin/Tazobactam 3.375 GM in 0.9 % Sodium Chloride Mini Bag 100 ML IVPB SCH (04:13)
[2020-04-07] MEDS: *HR* Heparin 5,000 UNIT/ML VIAL SQ SCH (05:58)
[2020-04-07] MEDS: Magnesium Oxide 400 MG TABLET PO SCH (08:07)
[2020-04-07] MEDS: calcium polycarbophiL 625 MG TABLET PO SCH (08:07)
[2020-04-07] MEDS: Topiramate 25 MG TABLET PO SCH (08:07)
[2020-04-07] MEDS: Doxycycline 100 MG CAPSULE PO SCH (08:07)
[2020-04-07] MEDS: Nystatin POWDER 30 GM BOTTLE TP SCH (08:08)
[2020-04-07] MEDS: Aspirin Enteric Coated 81 MG Tablet PO SCH (08:08)
[2020-04-07] MEDS: risperiDONE 0.25 MG TABLET PO SCH (08:08)
[2020-04-07] MEDS: Insulin LISPRO 300 UNITS/3 ML VIAL SQ SCH ×4 (08:11→11:58)
[2020-04-07] MEDS ORDERED: cefTRIAXone 2,000 MG in Water for inj. (sterile) 20 ML IVP SCH (09:00)
[2020-04-07] MEDS ORDERED: predniSONE 20 MG TABLET PO SCH (09:00)
[2020-04-07 11:36] VITALS: BP 139/83
[2020-04-07] MEDS: Ketorolac 15 MG/ML VIAL IVP PRN (12:01)
== END 2020-04-07 12:35 | disposition home health service (06) | DRG 438 ==
LOC: 3BNU 19:57 → EMEROOARM 19:57 → SUATTDRO 23:36 → 3BNU 04-04 00:22 → SUATTDRO 04-04 11:26 → 2NNU 04-05 13:51
PROVIDERS: ADMIT Family Medicine; ATTEND Internal Medicine

== ENCOUNTER 2020-05-30 15:57 | Inpatient (IN) ==
[2020-05-30] MEDS ORDERED: Isovue-370 500 ML BOTTLE IVP ONE (16:14)
[2020-05-30] MEDS ORDERED: *HR* FentaNYL (PF) 100 MCG/2 ML VIAL IVP ONE (16:16)
[2020-05-30] MEDS ORDERED: Ondansetron 4 MG/2 ML VIAL IVP ONE (16:16)
[2020-05-30 17:07] LABS: Basophils % 0.4 %; Eosinophils # 0.1 K/mcL (0.0-0.6); Eosinophils % 0.5 %; Hematocrit 48.2 % (35.3-44.9); Hemoglobin 14.5 g/dL (11.5-15.4); Immature Granulocytes % 0.2 % (0-4); Lymphocytes # 0.8 K/mcL (0.6-4.6); Lymphocytes % 8.7 %; Mean Corpuscular HGB Conc 30.1 g/dL (31.6-35.5); Mean Corpuscular Hemoglobin 27.3 pg (28.0-33.3); Mean Corpuscular Volume 90.6 fL (83.0-100.0); Mean Platelet Volume 11.4 fL (9.4-12.4); Monocytes # 0.5 K/mcL (0.0-1.3); Monocytes % 5.1 %; Neutrophils # 7.8 K/mcL (1.6-8.9); Platelet Count 196 K/mcL (140-400); Red Blood Count 5.32 M/mcL (3.82-4.97); Red Cell Distribution Width 17.1 % (11.5-14.5); Segmented Neutrophils % 85.1 %; White Blood Count 9.2 K/mcL (4.3-11.1)
[2020-05-30] MEDS ORDERED: 0.9 % Sodium Chloride 1,000 ML IVC ONE (17:27)
[2020-05-30 17:33] LABS: BUN/Creatinine Ratio 18 (6-26); Blood Urea Nitrogen 14 mg/dL (6-20); Calcium 9.4 mg/dL (8.6-10.3); Carbon Dioxide 27 mEq/L (23-29); Chloride 93 mEq/L (98-107); Glucose 556 mg/dL (70-105); Osmolality,Calculated 298 (280-300); Potassium 3.5 mEq/L (3.5-5.1); Sodium 131 mEq/L (136-145); eGFR For African Americans > 60 (> 60); eGFR For Non-African Americans > 60 (> 60)
[2020-05-30] MEDS ORDERED: Piperacillin/Tazobactam 3.375 GM in 0.9 % Sodium Chloride Mini Bag 100 ML IVPB ONE (17:42)
[2020-05-30] MEDS ORDERED: Vancomycin 2,000 MG/520 ML IV.SOLN IVPB ONE (17:42)
[2020-05-30] MEDS ORDERED: Morphine Sulfate 2 MG/ML SYRINGE IVP ONE (19:00)
[2020-05-30] MEDS ORDERED: Naloxone 0.4 MG/ML INJ IVP PRN (19:12)
[2020-05-30] MEDS ORDERED: Ondansetron 4 MG/2 ML VIAL IVP PRN (19:12)
[2020-05-30] MEDS ORDERED: Dextrose Gel 15 GM/37.5 ML TUBE PO PRN ×2 (19:15)
[2020-05-30] MEDS ORDERED: *HR* Dextrose 50 % in Water (Vial) 50 ML VIAL IVP PRN (19:15)
[2020-05-30] MEDS ORDERED: 0.9 % Sodium Chloride 1,000 ML IVC SCH (19:15)
[2020-05-30] MEDS ORDERED: D5% in Water 1,000 ML IVC PRN (19:15)
[2020-05-30] MEDS: Insulin DETEMIR 100 UNIT/ML X5UNITS SQ SCH (22:04)
[2020-05-30] MEDS: risperiDONE 1 MG TABLET PO SCH (22:04)
[2020-05-30] MEDS: Topiramate 25 MG TABLET PO SCH (22:04)
[2020-05-30] MEDS: traZODone 50 MG TABLET PO PRN (22:04)
[2020-05-30] MEDS ORDERED: Insulin Human Regular 5 UNIT in 0.9 % Sodium Chloride 10 ML IV ONE (23:47)
[2020-05-30] MEDS ORDERED: Insulin LISPRO 300 UNITS/3 ML VIAL SQ ONE (23:48)
[2020-05-31 01:13] LABS: Basophils % 0.4 %; Eosinophils # 0.1 K/mcL (0.0-0.6); Eosinophils % 1.4 %; Hematocrit 43.3 % (35.3-44.9); Hemoglobin 13.3 g/dL (11.5-15.4); Immature Granulocytes % 0.2 % (0-4); Lymphocytes # 1.3 K/mcL (0.6-4.6); Lymphocytes % 16.1 %; Mean Corpuscular HGB Conc 30.7 g/dL (31.6-35.5); Mean Corpuscular Hemoglobin 28.2 pg (28.0-33.3); Mean Corpuscular Volume 91.9 fL (83.0-100.0); Mean Platelet Volume 11.4 fL (9.4-12.4); Monocytes # 0.5 K/mcL (0.0-1.3); Monocytes % 5.7 %; Neutrophils # 6.1 K/mcL (1.6-8.9); Platelet Count 195 K/mcL (140-400); Red Blood Count 4.71 M/mcL (3.82-4.97); Red Cell Distribution Width 17.2 % (11.5-14.5); Segmented Neutrophils % 76.2 %
[2020-05-31] MEDS: Piperacillin/Tazobactam 3.375 GM in 0.9 % Sodium Chloride Mini Bag 100 ML IVPB SCH ×3 (01:15→17:35)
[2020-05-31 01:42] LABS: Alanine Aminotransferase 13 Units/L (7-52); Albumin 3.1 g/dL (3.5-5.7); Alkaline Phosphatase 184 Units/L (34-104); Aspartate Amino Transferase 13 Units/L (13-39); BUN/Creatinine Ratio 19 (6-26); Bilirubin,Total 0.4 mg/dL (0.3-1.0); Blood Urea Nitrogen 14 mg/dL (6-20); C-Reactive Protein 49 mg/L (Less than 10); Carbon Dioxide 26 mEq/L (23-29); Chloride 95 mEq/L (98-107); Globulin 3.2 g/dL (2.4-3.5); Glucose 509 mg/dL (70-105); Magnesium 1.4 mg/dL (1.6-2.6); Osmolality,Calculated 297 (280-300); Phosphorous 3.9 mg/dL (2.7-4.5); Potassium 3.7 mEq/L (3.5-5.1); Sodium 132 mEq/L (136-145); Total Protein 6.3 g/dL (6.4-8.9); eGFR For African Americans > 60 (> 60); eGFR For Non-African Americans > 60 (> 60)
[2020-05-31] MEDS ORDERED: Insulin Human Regular 10 UNIT in 0.9 % Sodium Chloride 10 ML IV ONE (03:27)
[2020-05-31] MEDS ORDERED: Insulin LISPRO 300 UNITS/3 ML VIAL SQ ONE (03:30)
[2020-05-31] MEDS: *HR* HYDROcodone/Acet 5/325 mg TABLET PO PRN ×2 (03:57→16:22)
[2020-05-31] MEDS: *HR* Heparin 5,000 UNIT/ML VIAL SQ SCH ×2 (05:19→17:35)
[2020-05-31] MEDS ORDERED: Vancomycin 2,000 MG/520 ML IV.SOLN IVPB ONE (06:00)
[2020-05-31] MEDS ORDERED: 0.9 % Sodium Chloride 500 ML IVC ONE (06:33)
[2020-05-31] MEDS: lisinopriL 10 MG TABLET PO SCH (07:50)
[2020-05-31] MEDS: risperiDONE 0.25 MG TABLET PO SCH (08:10)
[2020-05-31] MEDS: Aspirin Enteric Coated 81 MG Tablet PO SCH (08:10)
[2020-05-31] MEDS: Insulin LISPRO 300 UNITS/3 ML VIAL SQ SCH ×7 (08:10→17:36)
[2020-05-31] MEDS: Topiramate 25 MG TABLET PO SCH ×2 (08:10→20:07)
[2020-05-31] MEDS: Magnesium Oxide 400 MG TABLET PO SCH (08:11)
[2020-05-31] MEDS: Insulin DETEMIR 100 UNIT/ML X5UNITS SQ SCH ×2 (08:13→20:09)
[2020-05-31] MEDS: 0.9 % Sodium Chloride 1,000 ML IVC SCH ×2 (11:59→17:42)
[2020-05-31] MEDS: Silvasorb 44.4 ML TUBE TP SCH (15:08)
[2020-05-31 17:38] LABS: Bacteria,Urine Few per hpf (None-Few); Bilirubin,Urine Negative (Negative); Blood,Urine Negative (Negative); Clarity,Urine Clear (Clear); Color,Urine Yellow (Yellow); Glucose,Urine (UA) >=1000 mg/dL (Normal); Ketones,Urine Negative (Negative); Leukocyte Esterase,Urine Moderate (Negative); Mucus,Urine Few per lpf (None-Few); Nitrite,Urine Negative (Negative); Protein,Urine 30 mg/dL (Neg-Trace); Specific Gravity,Urine > 1.030 (1.010-1.025); Squamous Epithelial Cell,Urine Few per hpf (None-Few); Urobilinogen,Urine Normal (Normal)
[2020-05-31] MEDS ORDERED: Vancomycin 1,750 MG/517.5 ML IV.SOLN IVPB SCH (18:00)
[2020-05-31] MEDS: risperiDONE 1 MG TABLET PO SCH (20:08)
[2020-05-31] MEDS ORDERED: NON-FORMULARY MEDICATION 1 EACH EACH (Insulin Glargine [Lantus] 70 UNIT) SQ SCH (21:00)
[2020-06-01] MEDS: Piperacillin/Tazobactam 3.375 GM in 0.9 % Sodium Chloride Mini Bag 100 ML IVPB SCH ×3 (02:05→17:41)
[2020-06-01] MEDS: *HR* HYDROcodone/Acet 5/325 mg TABLET PO PRN ×3 (05:44→20:08)
[2020-06-01] MEDS: 0.9 % Sodium Chloride 1,000 ML IVC SCH ×2 (05:44→15:55)
[2020-06-01] MEDS: *HR* Heparin 5,000 UNIT/ML VIAL SQ SCH ×2 (05:45→17:15)
[2020-06-01 05:55] LABS: BUN/Creatinine Ratio 22 (6-26); Blood Urea Nitrogen 15 mg/dL (6-20); Calcium 8.5 mg/dL (8.6-10.3); Carbon Dioxide 25 mEq/L (23-29); Chloride 106 mEq/L (98-107); Glucose 269 mg/dL (70-105); Magnesium 1.7 mg/dL (1.6-2.6); Osmolality,Calculated 292 (280-300); Potassium 3.8 mEq/L (3.5-5.1); Sodium 136 mEq/L (136-145); eGFR For African Americans > 60 (> 60); eGFR For Non-African Americans > 60 (> 60)
[2020-06-01] MEDS: Topiramate 25 MG TABLET PO SCH ×2 (09:21→20:08)
[2020-06-01] MEDS: Aspirin Enteric Coated 81 MG Tablet PO SCH (09:21)
[2020-06-01] MEDS: lisinopriL 10 MG TABLET PO SCH (09:21)
[2020-06-01] MEDS: Magnesium Oxide 400 MG TABLET PO SCH (09:22)
[2020-06-01] MEDS: Insulin DETEMIR 100 UNIT/ML X5UNITS SQ SCH ×2 (09:22→20:12)
[2020-06-01] MEDS: Insulin LISPRO 300 UNITS/3 ML VIAL SQ SCH ×6 (09:23→17:18)
[2020-06-01] MEDS: risperiDONE 0.25 MG TABLET PO SCH (09:26)
[2020-06-01] MEDS ORDERED: Aminoglycoside Consult 1 EACH MC ONE (15:05)
[2020-06-01] MEDS: Silvasorb 44.4 ML TUBE TP SCH (19:11)
[2020-06-01] MEDS: traZODone 50 MG TABLET PO PRN (20:08)
[2020-06-01] MEDS: risperiDONE 1 MG TABLET PO SCH (20:08)
[2020-06-01] MEDS ORDERED: Vancomycin 2,000 MG/520 ML IV.SOLN IVPB SCH (21:00)
[2020-06-02] MEDS: Piperacillin/Tazobactam 3.375 GM in 0.9 % Sodium Chloride Mini Bag 100 ML IVPB SCH ×2 (02:07→08:45)
[2020-06-02] MEDS: 0.9 % Sodium Chloride 1,000 ML IVC SCH ×2 (02:30→13:43)
[2020-06-02] MEDS: *HR* HYDROcodone/Acet 5/325 mg TABLET PO PRN (05:49)
[2020-06-02] MEDS: *HR* Heparin 5,000 UNIT/ML VIAL SQ SCH (05:50)
[2020-06-02 08:36] VITALS: BP 93/58
[2020-06-02] MEDS: Aspirin Enteric Coated 81 MG Tablet PO SCH (08:37)
[2020-06-02] MEDS: Magnesium Oxide 400 MG TABLET PO SCH (08:37)
[2020-06-02] MEDS: Topiramate 25 MG TABLET PO SCH (08:38)
[2020-06-02] MEDS: lisinopriL 10 MG TABLET PO SCH (08:38)
[2020-06-02] MEDS: risperiDONE 0.25 MG TABLET PO SCH (08:41)
[2020-06-02] MEDS: Insulin LISPRO 300 UNITS/3 ML VIAL SQ SCH ×4 (08:43→13:27)
[2020-06-02] MEDS: Insulin DETEMIR 100 UNIT/ML X5UNITS SQ SCH (08:45)
[2020-06-02] MEDS: Silvasorb 44.4 ML TUBE TP SCH (09:43)
[2020-06-03] MEDS ORDERED: Ergocalciferol (VIT D2) 50,000 UNIT (1.25MG) CAP PO SCH (09:00)
== END 2020-06-02 15:06 | disposition home health service (06) | DRG 872 ==
LOC: 3BNU 15:57 → EMEROOARM 15:57 → 3BNU 19:43
PROVIDERS: ADMIT Internal Medicine; ATTEND Internal Medicine

== ENCOUNTER 2020-06-29 21:22 | Inpatient (IN) ==
[2020-06-29] MEDS ORDERED: *HR* OxyCODONE/APAP 5/325 TABLET PO ONE (21:33)
[2020-06-30 01:19] LABS: Basophils % 0.6 %; Eosinophils # 0.2 K/mcL (0.0-0.6); Eosinophils % 3.1 %; Hemoglobin 14.1 g/dL (11.5-15.4); Immature Granulocytes % 0.2 % (0-4); Lymphocytes # 1.6 K/mcL (0.6-4.6); Lymphocytes % 24.5 %; Mean Corpuscular HGB Conc 30.7 g/dL (31.6-35.5); Mean Corpuscular Hemoglobin 28.6 pg (28.0-33.3); Mean Corpuscular Volume 93.3 fL (83.0-100.0); Mean Platelet Volume 10.4 fL (9.4-12.4); Monocytes # 0.4 K/mcL (0.0-1.3); Monocytes % 5.7 %; Neutrophils # 4.3 K/mcL (1.6-8.9); Platelet Count 231 K/mcL (140-400); Red Blood Count 4.93 M/mcL (3.82-4.97); Red Cell Distribution Width 16.8 % (11.5-14.5); Segmented Neutrophils % 65.9 %; White Blood Count 6.5 K/mcL (4.3-11.1)
[2020-06-30 01:21] LABS: Prothrombin Time 11.6 Seconds (9.4-12.1)
[2020-06-30 01:23] LABS: Activated Partial Thrombo Time 36.5 Seconds (26.0-36.0)
[2020-06-30 01:41] LABS: Alanine Aminotransferase 14 Units/L (7-52); Albumin 3.7 g/dL (3.5-5.7); Alkaline Phosphatase 283 Units/L (34-104); Aspartate Amino Transferase 22 Units/L (13-39); BUN/Creatinine Ratio 27 (6-26); Bilirubin,Direct 0.1 mg/dL (0.0-0.2); Bilirubin,Indirect 0.3 mg/dL (0.0-1.0); Bilirubin,Total 0.4 mg/dL (0.3-1.0); Blood Urea Nitrogen 18 mg/dL (6-20); C-Reactive Protein 28 mg/L (Less than 10); Calcium 9.7 mg/dL (8.6-10.3); Carbon Dioxide 28 mEq/L (23-29); Chloride 99 mEq/L (98-107); Globulin 3.7 g/dL (2.4-3.5); Glucose 185 mg/dL (70-105); Lipase 13 Units/L (11-82); Osmolality,Calculated 289 (280-300); Sodium 136 mEq/L (136-145); Total Protein 7.4 g/dL (6.4-8.9); Troponin I < 0.03 ng/mL (< 0.04); eGFR For African Americans > 60 (> 60); eGFR For Non-African Americans > 60 (> 60)
[2020-06-30] MEDS ORDERED: Isovue-370 500 ML BOTTLE IVP ONE (03:13)
[2020-06-30] MEDS ORDERED: Vancomycin 2,000 MG/520 ML IV.SOLN IVPB ONE (05:15)
[2020-06-30] MEDS ORDERED: Piperacillin/Tazobactam 3.375 GM in 0.9 % Sodium Chloride Mini Bag 100 ML IVPB ONE (05:15)
[2020-06-30] MEDS ORDERED: Naloxone 0.4 MG/ML INJ IVP PRN (09:35)
[2020-06-30] MEDS: *HR* OxyCODONE/APAP 5/325 TABLET PO PRN ×2 (13:45→22:09)
[2020-06-30] MEDS: Piperacillin/Tazobactam 3.375 GM in 0.9 % Sodium Chloride Mini Bag 100 ML IVPB SCH ×2 (14:46→22:08)
[2020-06-30] MEDS: Vancomycin 1,250 MG/262.5 ML IV.SOLN IVPB SCH (17:55)
[2020-06-30] MEDS: Insulin DETEMIR 100 UNIT/ML X5UNITS SQ SCH (22:09)
[2020-06-30] MEDS: Topiramate 25 MG TABLET PO SCH (22:13)
[2020-07-01 03:20] LABS: Basophils % 0.9 %; Eosinophils # 0.2 K/mcL (0.0-0.6); Eosinophils % 4.2 %; Hematocrit 40.8 % (35.3-44.9); Hemoglobin 12.6 g/dL (11.5-15.4); Immature Granulocytes % 0.4 % (0-4); Lymphocytes # 1.5 K/mcL (0.6-4.6); Lymphocytes % 31.8 %; Mean Corpuscular HGB Conc 30.9 g/dL (31.6-35.5); Mean Corpuscular Volume 93.8 fL (83.0-100.0); Mean Platelet Volume 10.8 fL (9.4-12.4); Monocytes # 0.3 K/mcL (0.0-1.3); Monocytes % 7.2 %; Neutrophils # 2.5 K/mcL (1.6-8.9); Platelet Count 177 K/mcL (140-400); Red Blood Count 4.35 M/mcL (3.82-4.97); Red Cell Distribution Width 16.7 % (11.5-14.5); Segmented Neutrophils % 55.5 %; White Blood Count 4.6 K/mcL (4.3-11.1)
[2020-07-01 03:35] LABS: BUN/Creatinine Ratio 26 (6-26); Blood Urea Nitrogen 18 mg/dL (6-20); Calcium 9.4 mg/dL (8.6-10.3); Carbon Dioxide 25 mEq/L (23-29); Chloride 101 mEq/L (98-107); Glucose 152 mg/dL (70-105); Osmolality,Calculated 283 (280-300); Potassium 4.4 mEq/L (3.5-5.1); Sodium 134 mEq/L (136-145); eGFR For African Americans > 60 (> 60); eGFR For Non-African Americans > 60 (> 60)
[2020-07-01] MEDS: Piperacillin/Tazobactam 3.375 GM in 0.9 % Sodium Chloride Mini Bag 100 ML IVPB SCH ×3 (04:41→20:11)
[2020-07-01] MEDS: Vancomycin 1,250 MG/262.5 ML IV.SOLN IVPB SCH (04:41)
[2020-07-01] MEDS: *HR* OxyCODONE/APAP 5/325 TABLET PO PRN ×2 (06:21→15:24)
[2020-07-01] MEDS: risperiDONE 1 MG TABLET PO SCH ×2 (09:03→09:04)
[2020-07-01] MEDS: Cholecalciferol (D-3) 1,000 UNIT (25MCG) TABLET PO SCH (09:04)
[2020-07-01] MEDS: lisinopriL 10 MG TABLET PO SCH (09:04)
[2020-07-01] MEDS: Topiramate 25 MG TABLET PO SCH ×2 (09:04→20:15)
[2020-07-01] MEDS: Magnesium Oxide 400 MG TABLET PO SCH (09:04)
[2020-07-01] MEDS: Aspirin Enteric Coated 81 MG Tablet PO SCH (09:05)
[2020-07-01] MEDS: Insulin LISPRO 300 UNITS/3 ML VIAL SQ SCH ×3 (09:06→17:57)
[2020-07-01 10:57] LABS: Bilirubin,Urine Negative (Negative); Blood,Urine Negative (Negative); Clarity,Urine Clear (Clear); Color,Urine Light-Yellow (Yellow); Glucose,Urine (UA) Normal (Normal); Ketones,Urine Negative (Negative); Leukocyte Esterase,Urine Negative (Negative); Nitrite,Urine Negative (Negative); Protein,Urine Negative (Neg-Trace); Urobilinogen,Urine Normal (Normal)
[2020-07-01] MEDS ORDERED: Gadolinium Contrast Agent (WT Based) IV PRN (12:14)
[2020-07-01] MEDS: traZODone 50 MG TABLET PO SCH (20:15)
[2020-07-01] MEDS: *HR* Heparin 5,000 UNIT/ML VIAL SQ SCH (20:15)
[2020-07-01] MEDS: Insulin DETEMIR 100 UNIT/ML X5UNITS SQ SCH (20:47)
[2020-07-02 03:06] LABS: Immature Granulocytes % 0.2 % (0-4)
[2020-07-02 03:08] LABS: Basophils % 0.8 %; Eosinophils # 0.2 K/mcL (0.0-0.6); Eosinophils % 4.9 %; Hemoglobin 12.6 g/dL (11.5-15.4); Immature Platelets 5.2 % (1.1-6.1); Lymphocytes # 1.4 K/mcL (0.6-4.6); Lymphocytes % 29.2 %; Mean Corpuscular HGB Conc 30.7 g/dL (31.6-35.5); Mean Corpuscular Volume 94.5 fL (83.0-100.0); Mean Platelet Volume 11.3 fL (9.4-12.4); Monocytes # 0.4 K/mcL (0.0-1.3); Monocytes % 7.6 %; Neutrophils # 2.7 K/mcL (1.6-8.9); Platelet Count 135 K/mcL (140-400); Red Blood Count 4.34 M/mcL (3.82-4.97); Red Cell Distribution Width 16.4 % (11.5-14.5); Segmented Neutrophils % 57.3 %; White Blood Count 4.7 K/mcL (4.3-11.1)
[2020-07-02 03:26] LABS: BUN/Creatinine Ratio 27 (6-26); Blood Urea Nitrogen 19 mg/dL (6-20); Calcium 9.9 mg/dL (8.6-10.3); Carbon Dioxide 28 mEq/L (23-29); Chloride 101 mEq/L (98-107); Glucose 197 mg/dL (70-105); Osmolality,Calculated 290 (280-300); Potassium 4.5 mEq/L (3.5-5.1); Sodium 136 mEq/L (136-145); eGFR For African Americans > 60 (> 60); eGFR For Non-African Americans > 60 (> 60)
[2020-07-02] MEDS: *HR* Heparin 5,000 UNIT/ML VIAL SQ SCH ×3 (05:08→23:07)
[2020-07-02] MEDS: Piperacillin/Tazobactam 3.375 GM in 0.9 % Sodium Chloride Mini Bag 100 ML IVPB SCH ×3 (05:08→23:12)
[2020-07-02] MEDS: Magnesium Oxide 400 MG TABLET PO SCH (08:38)
[2020-07-02] MEDS: Cholecalciferol (D-3) 1,000 UNIT (25MCG) TABLET PO SCH (08:39)
[2020-07-02] MEDS: Topiramate 25 MG TABLET PO SCH ×2 (08:39→23:06)
[2020-07-02] MEDS: risperiDONE 1 MG TABLET PO SCH ×2 (08:39→08:40)
[2020-07-02] MEDS: Aspirin Enteric Coated 81 MG Tablet PO SCH (08:39)
[2020-07-02] MEDS: Insulin LISPRO 300 UNITS/3 ML VIAL SQ SCH ×3 (08:44→18:19)
[2020-07-02] MEDS: *HR* OxyCODONE/APAP 5/325 TABLET PO PRN ×2 (11:24→18:16)
[2020-07-02] MEDS: lisinopriL 10 MG TABLET PO SCH (15:14)
[2020-07-02] MEDS: traZODone 50 MG TABLET PO SCH (23:06)
[2020-07-02] MEDS: Insulin DETEMIR 100 UNIT/ML X5UNITS SQ SCH (23:07)
[2020-07-03] MEDS: *HR* OxyCODONE/APAP 5/325 TABLET PO PRN ×2 (00:13→10:44)
[2020-07-03 01:47] LABS: Basophils % 0.6 %; Eosinophils # 0.2 K/mcL (0.0-0.6); Eosinophils % 4.8 %; Hematocrit 40.6 % (35.3-44.9); Hemoglobin 12.7 g/dL (11.5-15.4); Immature Granulocytes % 0.4 % (0-4); Lymphocytes # 1.7 K/mcL (0.6-4.6); Lymphocytes % 33.3 %; Mean Corpuscular HGB Conc 31.3 g/dL (31.6-35.5); Mean Corpuscular Hemoglobin 29.3 pg (28.0-33.3); Mean Corpuscular Volume 93.5 fL (83.0-100.0); Mean Platelet Volume 10.9 fL (9.4-12.4); Monocytes # 0.3 K/mcL (0.0-1.3); Monocytes % 6.4 %; Neutrophils # 2.7 K/mcL (1.6-8.9); Platelet Count 129 K/mcL (140-400); Red Blood Count 4.34 M/mcL (3.82-4.97); Red Cell Distribution Width 16.1 % (11.5-14.5); Segmented Neutrophils % 54.5 %
[2020-07-03 02:08] LABS: BUN/Creatinine Ratio 26 (6-26); Blood Urea Nitrogen 17 mg/dL (6-20); Calcium 9.9 mg/dL (8.6-10.3); Carbon Dioxide 27 mEq/L (23-29); Chloride 99 mEq/L (98-107); Glucose 181 mg/dL (70-105); Osmolality,Calculated 286 (280-300); Potassium 4.3 mEq/L (3.5-5.1); Sodium 135 mEq/L (136-145); eGFR For African Americans > 60 (> 60); eGFR For Non-African Americans > 60 (> 60)
[2020-07-03] MEDS: Piperacillin/Tazobactam 3.375 GM in 0.9 % Sodium Chloride Mini Bag 100 ML IVPB SCH (06:02)
[2020-07-03] MEDS: *HR* Heparin 5,000 UNIT/ML VIAL SQ SCH (06:02)
[2020-07-03] MEDS: Magnesium Oxide 400 MG TABLET PO SCH (08:41)
[2020-07-03] MEDS: risperiDONE 1 MG TABLET PO SCH ×2 (08:41→08:42)
[2020-07-03] MEDS: Aspirin Enteric Coated 81 MG Tablet PO SCH (08:41)
[2020-07-03] MEDS: Cholecalciferol (D-3) 1,000 UNIT (25MCG) TABLET PO SCH (08:41)
[2020-07-03] MEDS: Insulin LISPRO 300 UNITS/3 ML VIAL SQ SCH ×2 (08:42→11:50)
[2020-07-03] MEDS: lisinopriL 10 MG TABLET PO SCH (08:42)
[2020-07-03] MEDS: Topiramate 25 MG TABLET PO SCH (08:42)
[2020-07-03] MEDS ORDERED: Nystatin POWDER 30 GM BOTTLE TP SCH (10:00)
[2020-07-03 11:05] VITALS: BP 105/52
== END 2020-07-03 15:15 | disposition home health service (06) | DRG 623 ==
LOC: 3ANU 21:22 → EMEROOARM 21:22 → 3ANU 06-30 07:43 → SUATTDRO 07-01 16:11 → 3NENU 07-01 17:32
PROVIDERS: ADMIT Internal Medicine; ATTEND Internal Medicine

== ENCOUNTER 2020-07-13 15:11 | Inpatient (IN) ==
[2020-07-13] MEDS ORDERED: Isovue-370 500 ML BOTTLE IVP ONE (15:47)
[2020-07-13 16:25] LABS: Basophils % 0.4 %; Eosinophils # 0.2 K/mcL (0.0-0.6); Eosinophils % 2.3 %; Hematocrit 45.3 % (35.3-44.9); Hemoglobin 14.6 g/dL (11.5-15.4); Immature Granulocytes % 0.1 % (0-4); Lymphocytes # 1.6 K/mcL (0.6-4.6); Lymphocytes % 21.4 %; Mean Corpuscular HGB Conc 32.2 g/dL (31.6-35.5); Mean Corpuscular Volume 93.2 fL (83.0-100.0); Mean Platelet Volume 11.2 fL (9.4-12.4); Monocytes # 0.4 K/mcL (0.0-1.3); Monocytes % 5.6 %; Neutrophils # 5.2 K/mcL (1.6-8.9); Platelet Count 220 K/mcL (140-400); Red Blood Count 4.86 M/mcL (3.82-4.97); Red Cell Distribution Width 16.3 % (11.5-14.5); Segmented Neutrophils % 70.2 %; White Blood Count 7.5 K/mcL (4.3-11.1)
[2020-07-13 16:47] LABS: Alanine Aminotransferase 10 Units/L (7-52); Albumin 4.1 g/dL (3.5-5.7); Albumin/Globulin Ratio 1.1 (1.1-2.2); Alkaline Phosphatase 262 Units/L (34-104); Aspartate Amino Transferase 13 Units/L (13-39); BUN/Creatinine Ratio 37 (6-26); Bilirubin,Total 0.4 mg/dL (0.3-1.0); Blood Urea Nitrogen 23 mg/dL (6-20); Calcium 10.4 mg/dL (8.6-10.3); Carbon Dioxide 27 mEq/L (23-29); Chloride 102 mEq/L (98-107); Globulin 3.6 g/dL (2.4-3.5); Glucose 172 mg/dL (70-105); Osmolality,Calculated 292 (280-300); Potassium 4.1 mEq/L (3.5-5.1); Sodium 137 mEq/L (136-145); Total Protein 7.7 g/dL (6.4-8.9); eGFR For African Americans > 60 (> 60); eGFR For Non-African Americans > 60 (> 60)
[2020-07-13] MEDS ORDERED: *HR* FentaNYL (PF) 100 MCG/2 ML VIAL IVP ONE (17:09)
[2020-07-13] MEDS ORDERED: Piperacillin/Tazobactam 3.375 GM in 0.9 % Sodium Chloride Mini Bag 100 ML IVPB ONE (18:11)
[2020-07-13] MEDS ORDERED: Naloxone 0.4 MG/ML INJ IVP PRN (20:28)
[2020-07-13] MEDS ORDERED: Dextrose Gel 15 GM/37.5 ML TUBE PO PRN ×2 (20:32)
[2020-07-13] MEDS ORDERED: *HR* Dextrose 50 % in Water (Vial) 50 ML VIAL IVP PRN (20:32)
[2020-07-13] MEDS ORDERED: D5% in Water 1,000 ML IVC PRN (20:32)
[2020-07-13] MEDS: Insulin LISPRO 300 UNITS/3 ML VIAL SQ SCH (21:42)
[2020-07-13] MEDS ORDERED: Acetaminophen 325 MG TABLET PO PRN (22:04)
[2020-07-14] MEDS: Piperacillin/Tazobactam 3.375 GM in 0.9 % Sodium Chloride Mini Bag 100 ML IVPB SCH ×3 (01:46→17:44)
[2020-07-14] MEDS ORDERED: 0.9 % Sodium Chloride 1,000 ML IVC ONE (02:05)
[2020-07-14] MEDS: *HR* HYDROcodone/Acet 5/325 mg TABLET PO PRN (02:21)
[2020-07-14 02:45] LABS: Hematocrit 42.4 % (35.3-44.9); Hemoglobin 13.5 g/dL (11.5-15.4); Mean Corpuscular HGB Conc 31.8 g/dL (31.6-35.5); Mean Corpuscular Hemoglobin 29.5 pg (28.0-33.3); Mean Corpuscular Volume 92.8 fL (83.0-100.0); Mean Platelet Volume 10.7 fL (9.4-12.4); Platelet Count 220 K/mcL (140-400); Red Blood Count 4.57 M/mcL (3.82-4.97); Red Cell Distribution Width 16.4 % (11.5-14.5); White Blood Count 8.1 K/mcL (4.3-11.1)
[2020-07-14 03:06] LABS: BUN/Creatinine Ratio 37 (6-26); Blood Urea Nitrogen 24 mg/dL (6-20); Calcium 9.7 mg/dL (8.6-10.3); Carbon Dioxide 23 mEq/L (23-29); Chloride 102 mEq/L (98-107); Glucose 180 mg/dL (70-105); Magnesium 1.5 mg/dL (1.6-2.6); Osmolality,Calculated 289 (280-300); Phosphorous 5.1 mg/dL (2.7-4.5); Potassium 4.1 mEq/L (3.5-5.1); Sodium 135 mEq/L (136-145); eGFR For African Americans > 60 (> 60); eGFR For Non-African Americans > 60 (> 60)
[2020-07-14] MEDS: *HR* Heparin 5,000 UNIT/ML VIAL SQ SCH ×2 (05:54→17:47)
[2020-07-14] MEDS ORDERED: 0.9 % Sodium Chloride 1,000 ML IVC SCH (08:45)
[2020-07-14] MEDS: Lactobacillus 1 EACH CAP.SPRINK PO SCH (09:03)
[2020-07-14] MEDS: lisinopriL 10 MG TABLET PO SCH (09:03)
[2020-07-14] MEDS: risperiDONE 0.25 MG TABLET PO SCH (09:04)
[2020-07-14] MEDS: risperiDONE 1 MG TABLET PO SCH (09:05)
[2020-07-14] MEDS: Magnesium Oxide 400 MG TABLET PO SCH (09:05)
[2020-07-14] MEDS: Aspirin Enteric Coated 81 MG Tablet PO SCH (09:05)
[2020-07-14] MEDS: Topiramate 25 MG TABLET PO SCH ×2 (09:05→21:08)
[2020-07-14] MEDS: Insulin LISPRO 300 UNITS/3 ML VIAL SQ SCH ×7 (09:09→21:08)
[2020-07-14] MEDS: *HR* OxyCODONE Immed Rel 5 MG TABLET PO PRN (13:33)
[2020-07-14 16:17] LABS: Acinetobacter baumannii by PCR Not Detected (Not Detect); Candida albicans by PCR Not Detected (Not Detect); Enterobacter cloacae Cmplx PCR Not Detected (Not Detect); Enterobacteriaceae by PCR Not Detected (Not Detect); Enterococcus by PCR Not Detected (Not Detect); Escherichia coli by PCR Not Detected (Not Detect); Klebsiella oxytoca by PCR Not Detected (Not Detect); Klebsiella pneumoniae by PCR Not Detected (Not Detect); Proteus by PCR Not Detected (Not Detect); Pseudomonas aeruginosa by PCR Not Detected (Not Detect); Serratia marcescens by PCR Not Detected (Not Detect); Staphylococcus aureus by PCR Not Detected (Not Detect); Staphylococcus by PCR DETECTED (Not Detect); Streptococcus agalactiae(B)PCR Not Detected (Not Detect); Streptococcus by PCR Not Detected (Not Detect); Streptococcus pneumoniae PCR Not Detected (Not Detect); Streptococcus pyogenes (A) PCR Not Detected (Not Detect); mecA Methicillin-Resist Gene DETECTED (Not Detect)
[2020-07-14 16:18] LABS: Candida glabrata by PCR Not Detected (Not Detect); Candida krusei by PCR Not Detected (Not Detect); Candida parapsilosis by PCR Not Detected (Not Detect); Candida tropicalis by PCR Not Detected (Not Detect)
[2020-07-14] MEDS: Insulin DETEMIR 100 UNIT/ML X5UNITS SQ SCH (21:08)
[2020-07-15] MEDS: Piperacillin/Tazobactam 3.375 GM in 0.9 % Sodium Chloride Mini Bag 100 ML IVPB SCH ×4 (00:14→23:51)
[2020-07-15] MEDS: traZODone 50 MG TABLET PO SCH ×2 (05:20→20:50)
[2020-07-15] MEDS: *HR* Heparin 5,000 UNIT/ML VIAL SQ SCH ×2 (05:42→17:22)
[2020-07-15] MEDS: Magnesium Oxide 400 MG TABLET PO SCH (09:56)
[2020-07-15] MEDS: lisinopriL 10 MG TABLET PO SCH (09:57)
[2020-07-15] MEDS: Topiramate 25 MG TABLET PO SCH ×2 (09:57→20:50)
[2020-07-15] MEDS: Lactobacillus 1 EACH CAP.SPRINK PO SCH (09:57)
[2020-07-15] MEDS: Aspirin Enteric Coated 81 MG Tablet PO SCH (09:57)
[2020-07-15] MEDS: risperiDONE 0.25 MG TABLET PO SCH (09:57)
[2020-07-15] MEDS: risperiDONE 1 MG TABLET PO SCH (09:57)
[2020-07-15] MEDS: Insulin LISPRO 300 UNITS/3 ML VIAL SQ SCH ×7 (10:08→20:49)
[2020-07-15] MEDS: Ketorolac 15 MG/ML VIAL IVP PRN ×2 (10:27→16:38)
[2020-07-15] MEDS: *HR* OxyCODONE Immed Rel 5 MG TABLET PO PRN ×2 (13:52→20:53)
[2020-07-15] MEDS: Insulin DETEMIR 100 UNIT/ML X5UNITS SQ SCH (20:50)
[2020-07-16] MEDS: *HR* Heparin 5,000 UNIT/ML VIAL SQ SCH ×2 (05:46→16:46)
[2020-07-16] MEDS: Insulin LISPRO 300 UNITS/3 ML VIAL SQ SCH ×7 (07:40→20:26)
[2020-07-16] MEDS: Piperacillin/Tazobactam 3.375 GM in 0.9 % Sodium Chloride Mini Bag 100 ML IVPB SCH ×2 (07:41→16:46)
[2020-07-16] MEDS: risperiDONE 0.25 MG TABLET PO SCH (07:41)
[2020-07-16] MEDS: risperiDONE 1 MG TABLET PO SCH (07:42)
[2020-07-16] MEDS: Lactobacillus 1 EACH CAP.SPRINK PO SCH (07:43)
[2020-07-16] MEDS: Aspirin Enteric Coated 81 MG Tablet PO SCH (07:43)
[2020-07-16] MEDS: lisinopriL 10 MG TABLET PO SCH (07:43)
[2020-07-16] MEDS: Magnesium Oxide 400 MG TABLET PO SCH (07:43)
[2020-07-16] MEDS: Topiramate 25 MG TABLET PO SCH ×2 (07:43→20:12)
[2020-07-16] MEDS: Ketorolac 15 MG/ML VIAL IVP PRN ×2 (07:47→16:47)
[2020-07-16] MEDS: *HR* OxyCODONE Immed Rel 5 MG TABLET PO PRN (11:59)
[2020-07-16] MEDS: Insulin DETEMIR 100 UNIT/ML X5UNITS SQ SCH (20:12)
[2020-07-16] MEDS: traZODone 50 MG TABLET PO SCH (20:12)
[2020-07-17] MEDS: Piperacillin/Tazobactam 3.375 GM in 0.9 % Sodium Chloride Mini Bag 100 ML IVPB SCH ×3 (02:19→15:53)
[2020-07-17] MEDS: Ketorolac 15 MG/ML VIAL IVP PRN ×3 (02:20→21:16)
[2020-07-17] MEDS: Insulin LISPRO 300 UNITS/3 ML VIAL SQ SCH ×7 (08:14→20:54)
[2020-07-17] MEDS: *HR* Heparin 5,000 UNIT/ML VIAL SQ SCH ×2 (08:15→16:56)
[2020-07-17] MEDS: risperiDONE 0.25 MG TABLET PO SCH (08:17)
[2020-07-17] MEDS: Lactobacillus 1 EACH CAP.SPRINK PO SCH (08:17)
[2020-07-17] MEDS: lisinopriL 10 MG TABLET PO SCH (08:18)
[2020-07-17] MEDS: risperiDONE 1 MG TABLET PO SCH (08:18)
[2020-07-17] MEDS: Topiramate 25 MG TABLET PO SCH ×2 (08:18→20:54)
[2020-07-17] MEDS: Magnesium Oxide 400 MG TABLET PO SCH (08:18)
[2020-07-17] MEDS: Aspirin Enteric Coated 81 MG Tablet PO SCH (08:18)
[2020-07-17] MEDS: traZODone 50 MG TABLET PO SCH (20:54)
[2020-07-17] MEDS: Insulin DETEMIR 100 UNIT/ML X5UNITS SQ SCH (20:54)
[2020-07-18] MEDS: Piperacillin/Tazobactam 3.375 GM in 0.9 % Sodium Chloride Mini Bag 100 ML IVPB SCH ×3 (00:23→17:13)
[2020-07-18] MEDS: *HR* Heparin 5,000 UNIT/ML VIAL SQ SCH ×2 (06:06→17:15)
[2020-07-18] MEDS: Insulin LISPRO 300 UNITS/3 ML VIAL SQ SCH ×7 (08:01→20:48)
[2020-07-18] MEDS: risperiDONE 0.25 MG TABLET PO SCH (08:02)
[2020-07-18] MEDS: Magnesium Oxide 400 MG TABLET PO SCH (08:03)
[2020-07-18] MEDS: lisinopriL 10 MG TABLET PO SCH (08:03)
[2020-07-18] MEDS: risperiDONE 1 MG TABLET PO SCH (08:03)
[2020-07-18] MEDS: Topiramate 25 MG TABLET PO SCH ×2 (08:03→20:50)
[2020-07-18] MEDS: Lactobacillus 1 EACH CAP.SPRINK PO SCH (08:03)
[2020-07-18] MEDS: Aspirin Enteric Coated 81 MG Tablet PO SCH (08:03)
[2020-07-18] MEDS: Ketorolac 15 MG/ML VIAL IVP PRN ×2 (12:00→21:02)
[2020-07-18] MEDS: traZODone 50 MG TABLET PO SCH (20:50)
[2020-07-18] MEDS: Insulin DETEMIR 100 UNIT/ML X5UNITS SQ SCH (20:52)
[2020-07-19] MEDS: Piperacillin/Tazobactam 3.375 GM in 0.9 % Sodium Chloride Mini Bag 100 ML IVPB SCH ×3 (00:04→10:04)
[2020-07-19] MEDS: *HR* Heparin 5,000 UNIT/ML VIAL SQ SCH ×2 (05:12→17:14)
[2020-07-19] MEDS: Insulin LISPRO 300 UNITS/3 ML VIAL SQ SCH ×6 (08:31→17:14)
[2020-07-19] MEDS: Aspirin Enteric Coated 81 MG Tablet PO SCH (08:33)
[2020-07-19] MEDS: Lactobacillus 1 EACH CAP.SPRINK PO SCH (08:33)
[2020-07-19] MEDS: risperiDONE 0.25 MG TABLET PO SCH (08:33)
[2020-07-19] MEDS: risperiDONE 1 MG TABLET PO SCH (08:33)
[2020-07-19] MEDS: lisinopriL 10 MG TABLET PO SCH (08:33)
[2020-07-19] MEDS: Topiramate 25 MG TABLET PO SCH (08:33)
[2020-07-19] MEDS: Magnesium Oxide 400 MG TABLET PO SCH (08:33)
[2020-07-19 10:15] VITALS: BP 115/67
[2020-07-19] MEDS: *HR* HYDROcodone/Acet 5/325 mg TABLET PO PRN (11:50)
[2020-07-19] MEDS ORDERED: levoFLOXacin 750 MG TABLET PO SCH (12:30)
== END 2020-07-19 18:45 | disposition home health service (06) | DRG 982 ==
LOC: 3BNU 15:11 → EMEROOARM 15:11 → 3BNU 18:51 → 3ANU 07-14 23:45 → SUATTDRO 07-15 13:39
PROVIDERS: ADMIT Internal Medicine; ATTEND Internal Medicine

== ENCOUNTER 2021-01-31 15:56 | Observation (INO) ==
[2021-01-31] MEDS ORDERED: Ondansetron 4 MG/2 ML VIAL IVP ONE (16:09)
[2021-01-31] MEDS ORDERED: Ondansetron ODT 4 MG TAB.RAPDIS SL STA (16:14)
[2021-01-31 17:01] LABS: Bacteria,Urine Few per hpf (None-Few); Bilirubin,Urine Negative (Negative); Blood,Urine Small (Negative); Budding Yeast,Urine Few per hpf (None Seen); Clarity,Urine Clear (Clear); Color,Urine Light-Yellow (Yellow); Glucose,Urine (UA) >=1000 mg/dL (Normal); Ketones,Urine Negative (Negative); Leukocyte Esterase,Urine Small (Negative); Mucus,Urine Few per lpf (None-Few); Nitrite,Urine Negative (Negative); Protein,Urine Negative (Neg-Trace); Specific Gravity,Urine > 1.030 (1.010-1.025); Squamous Epithelial Cell,Urine Few per hpf (None-Few); Urobilinogen,Urine Normal (Normal); WBC,Urine 15-30 per hpf (0-3)
[2021-01-31 17:07] LABS: Eosinophils % 1.5 %; Hematocrit 42.5 % (35.3-44.9); Hemoglobin 14.3 g/dL (11.5-15.4); Mean Corpuscular HGB Conc 33.6 g/dL (31.6-35.5); Mean Platelet Volume 11.5 fL (9.4-12.4); Red Cell Distribution Width 14.3 % (11.5-14.5)
[2021-01-31 17:08] LABS: Basophils % 0.4 %; Eosinophils # 0.1 K/mcL (0.0-0.6); Immature Granulocytes % 0.6 % (0-4); Immature Platelets 8.7 % (1.1-6.1); Lymphocytes # 1.6 K/mcL (0.6-4.6); Mean Corpuscular Hemoglobin 31.7 pg (28.0-33.3); Mean Corpuscular Volume 94.2 fL (83.0-100.0); Monocytes # 0.4 K/mcL (0.0-1.3); Monocytes % 5.9 %; Neutrophils # 5.1 K/mcL (1.6-8.9); Platelet Count 155 K/mcL (140-400); Red Blood Count 4.51 M/mcL (3.82-4.97); Segmented Neutrophils % 69.6 %; White Blood Count 7.3 K/mcL (4.3-11.1)
[2021-01-31 17:29] LABS: Alanine Aminotransferase 12 Units/L (7-52); Albumin 3.7 g/dL (3.5-5.7); Albumin/Globulin Ratio 1.1 (1.1-2.2); Alkaline Phosphatase 164 Units/L (34-104); Aspartate Amino Transferase 9 Units/L (13-39); BUN/Creatinine Ratio 14 (6-26); Bilirubin,Indirect 0.3 mg/dL (0.0-1.0); Bilirubin,Total 0.3 mg/dL (0.3-1.0); Blood Urea Nitrogen 9 mg/dL (6-20); Calcium 9.2 mg/dL (8.6-10.3); Carbon Dioxide 25 mEq/L (23-29); Chloride 99 mEq/L (98-107); Globulin 3.3 g/dL (2.4-3.5); Glucose 545 mg/dL (70-105); Lipase 57 Units/L (11-82); Osmolality,Calculated 299 (280-300); Potassium 3.9 mEq/L (3.5-5.1); Sodium 133 mEq/L (136-145); eGFR For African Americans > 60 (> 60); eGFR For Non-African Americans > 60 (> 60)
[2021-01-31] MEDS ORDERED: 0.9 % Sodium Chloride 1,000 ML IVC ONE ×2 (18:04→20:53)
[2021-01-31] MEDS ORDERED: Insulin Regular, Human 100 UNIT/ML SUBQ ONE ×3 (18:16→19:33)
[2021-01-31] MEDS ORDERED: cephALEXin 250 MG CAPSULE PO ONE (18:39)
[2021-01-31] MEDS ORDERED: Insulin Human Regular 100 UNIT in 0.9 % Sodium Chloride 100 ML IVC SCH (21:30)
[2021-01-31] MEDS ORDERED: Naloxone 0.4 MG/ML INJ IVP PRN (22:03)
[2021-01-31] MEDS ORDERED: *HR* OxyCODONE/APAP 5/325 TABLET PO ONE (22:45)
[2021-01-31] MEDS ORDERED: Dextrose Gel 15 GM/37.5 ML TUBE PO PRN ×2 (22:48)
[2021-01-31] MEDS ORDERED: D5% in Water 1,000 ML IVC PRN (22:48)
[2021-01-31] MEDS ORDERED: *HR* Dextrose 50 % in Water (Vial) 50 ML VIAL IVP PRN (22:48)
[2021-01-31] MEDS ORDERED: Insulin LISPRO 300 UNITS/3 ML VIAL SUBQ SCH (23:00)
[2021-02-01] MEDS: Nystatin POWDER 30 GM BOTTLE TP SCH ×3 (05:56→16:41)
[2021-02-01 06:28] LABS: Basophils % 0.4 %; Eosinophils # 0.1 K/mcL (0.0-0.6); Eosinophils % 1.6 %; Hematocrit 38.4 % (35.3-44.9); Hemoglobin 12.8 g/dL (11.5-15.4); Immature Granulocytes % 0.4 % (0-4); Lymphocytes # 1.8 K/mcL (0.6-4.6); Lymphocytes % 27.3 %; Mean Corpuscular HGB Conc 33.3 g/dL (31.6-35.5); Mean Corpuscular Hemoglobin 31.3 pg (28.0-33.3); Mean Corpuscular Volume 93.9 fL (83.0-100.0); Mean Platelet Volume 10.5 fL (9.4-12.4); Monocytes # 0.4 K/mcL (0.0-1.3); Monocytes % 6.4 %; Neutrophils # 4.3 K/mcL (1.6-8.9); Platelet Count 158 K/mcL (140-400); Red Blood Count 4.09 M/mcL (3.82-4.97); Red Cell Distribution Width 14.5 % (11.5-14.5); Segmented Neutrophils % 63.9 %; White Blood Count 6.7 K/mcL (4.3-11.1)
[2021-02-01 06:45] LABS: BUN/Creatinine Ratio 22 (6-26); Blood Urea Nitrogen 12 mg/dL (6-20); Calcium 8.7 mg/dL (8.6-10.3); Carbon Dioxide 23 mEq/L (23-29); Chloride 106 mEq/L (98-107); Glucose 159 mg/dL (70-105); Osmolality,Calculated 285 (280-300); Potassium 3.7 mEq/L (3.5-5.1); Sodium 136 mEq/L (136-145); eGFR For African Americans > 60 (> 60); eGFR For Non-African Americans > 60 (> 60)
[2021-02-01] MEDS: Insulin LISPRO 300 UNITS/3 ML VIAL SUBQ SCH ×3 (08:00→16:50)
[2021-02-01] MEDS ORDERED: cefTRIAXone 2,000 MG in Water for inj. (sterile) 20 ML IVP SCH (09:00)
[2021-02-01 10:55] LABS: Estimated Average Glucose 355 mg/dl
[2021-02-01 15:31] VITALS: BP 108/69
== END 2021-02-01 19:20 | disposition home health service (06) ==
LOC: EMEROOARM 15:56 → 2NENU 15:56
PROVIDERS: ADMIT Student in an Organized Health Care Education/Training Program; ATTEND Student in an Organized Health Care Education/Training Program

== ENCOUNTER 2021-12-25 10:43 | Observation (INO) ==
[2021-12-25] MEDS ORDERED: cefTRIAXone 2,000 MG in 0.9 % Sodium Chloride Mini Bag 100 ML IVPB ONE (10:53)
[2021-12-25] MEDS ORDERED: *HR* FentaNYL (PF) 100 MCG/2 ML VIAL IVP ONE (10:54)
[2021-12-25 11:24] LABS: Bacteria,Urine Few per hpf (None-Few); Bilirubin,Urine Negative (Negative); Blood,Urine Small (Negative); Clarity,Urine Turbid (Clear); Color,Urine Light-Yellow (Yellow); Glucose,Urine (UA) Normal (Normal); Ketones,Urine Negative (Negative); Leukocyte Esterase,Urine Moderate (Negative); Mucus,Urine Few per lpf (None-Few); Nitrite,Urine Positive (Negative); Protein,Urine Negative (Neg-Trace); RBC,Urine 15-30 per hpf (0-3); Specific Gravity,Urine 1.017 (1.010-1.025); Squamous Epithelial Cell,Urine Few per hpf (None-Few); Urobilinogen,Urine Normal (Normal); WBC,Urine 30-50 per hpf (0-3)
[2021-12-25 12:31] LABS: Basophils % 0.4 %; Eosinophils # 0.1 K/mcL (0.0-0.6); Eosinophils % 1.5 %; Hematocrit 39.8 % (35.3-44.9); Hemoglobin 12.7 g/dL (11.5-15.4); Immature Granulocytes % 0.4 % (0-4); Lymphocytes % 24.6 %; Mean Corpuscular HGB Conc 31.9 g/dL (31.6-35.5); Mean Corpuscular Hemoglobin 29.3 pg (28.0-33.3); Mean Corpuscular Volume 91.9 fL (83.0-100.0); Mean Platelet Volume 10.2 fL (9.4-12.4); Monocytes # 0.5 K/mcL (0.0-1.3); Neutrophils # 5.4 K/mcL (1.6-8.9); Platelet Count 194 K/mcL (140-400); Red Blood Count 4.33 M/mcL (3.82-4.97); Red Cell Distribution Width 13.1 % (11.5-14.5); Segmented Neutrophils % 67.1 %
[2021-12-25 12:49] LABS: BUN/Creatinine Ratio 40 (6-26); Blood Urea Nitrogen 27 mg/dL (6-20); Carbon Dioxide 29 mEq/L (23-29); Chloride 103 mEq/L (98-107); Glucose 72 mg/dL (70-105); Osmolality,Calculated 292 (280-300); Potassium 3.9 mEq/L (3.5-5.1); Sodium 139 mEq/L (136-145); eGFR For African Americans > 60 (> 60); eGFR For Non-African Americans > 60 (> 60)
[2021-12-25] MEDS ORDERED: Melatonin 3 MG TABLET PO PRN (13:47)
[2021-12-25] MEDS ORDERED: Mag Hydrox/Al Hydrox/Simeth 30 ML UDC PO PRN (13:47)
[2021-12-25] MEDS ORDERED: MOM Conc 10 ML UD.LIQ PO PRN (13:47)
[2021-12-25] MEDS ORDERED: Naloxone 0.4 MG/ML INJ IVP PRN (13:47)
[2021-12-25] MEDS ORDERED: Ondansetron ODT 4 MG TAB.RAPDIS SL PRN (13:47)
[2021-12-25] MEDS ORDERED: *HR* Dextrose 50 % in Water (Syg) 50 ML SYRINGE IVP PRN (13:51)
[2021-12-25] MEDS ORDERED: D5% in Water 1,000 ML IVC PRN (13:51)
[2021-12-25] MEDS ORDERED: Dextrose Gel 15 GM/37.5 ML TUBE PO PRN ×2 (13:51)
[2021-12-25] MEDS: Insulin LISPRO 300 UNITS/3 ML VIAL SUBQ SCH (16:55)
[2021-12-25] MEDS ORDERED: Insulin LISPRO 300 UNITS/3 ML VIAL SUBQ SCH (21:00)
[2021-12-26 07:13] VITALS: BP 103/66; PULSE 82; TEMP 97.9; O2SAT 98
[2021-12-26] MEDS: Insulin LISPRO 300 UNITS/3 ML VIAL SUBQ SCH ×2 (07:19→11:59)
[2021-12-26] MEDS ORDERED: Acetaminophen 325 MG TABLET PO PRN (08:59)
[2021-12-26] MEDS ORDERED: cefTRIAXone 1,000 MG in 0.9 % Sodium Chloride Mini Bag 100 ML IVPB SCH (09:00)
[2021-12-26 10:32] LABS: Estimated Average Glucose 120 mg/dl; Hemoglobin A1C 5.8 %
== END 2021-12-26 12:56 | disposition home health service (06) ==
LOC: 3BNU 10:43 → EMEROOARM 10:43 → SUATTDRO 15:04 → 3BNU 15:52
PROVIDERS: ADMIT Internal Medicine; ATTEND Registered Nurse

== ENCOUNTER 2022-08-01 21:05 | Inpatient (IN) ==
[2022-08-01] MEDS ORDERED: Aspirin 81 MG TAB.CHEW PO ONE (21:41)
[2022-08-01] MEDS ORDERED: Morphine Sulfate 2 MG/ML SYRINGE IVP ONE (21:42)
[2022-08-01 22:14] LABS: Basophils % 0.2 %; Eosinophils # 0.2 K/mcL (0.0-0.6); Eosinophils % 1.9 %; Hematocrit 35.5 % (35.3-44.9); Immature Granulocytes % 0.3 % (0-4); Lymphocytes # 1.9 K/mcL (0.6-4.6); Lymphocytes % 21.9 %; Mean Corpuscular Hemoglobin 28.1 pg (28.0-33.3); Mean Corpuscular Volume 90.6 fL (83.0-100.0); Mean Platelet Volume 10.6 fL (9.4-12.4); Monocytes # 0.5 K/mcL (0.0-1.3); Monocytes % 5.7 %; Neutrophils # 6.1 K/mcL (1.6-8.9); Platelet Count 192 K/mcL (140-400); Red Blood Count 3.92 M/mcL (3.82-4.97); Red Cell Distribution Width 14.9 % (11.5-14.5); White Blood Count 8.8 K/mcL (4.3-11.1)
[2022-08-01 22:31] LABS: INR 1.1; Prothrombin Time 11.7 Seconds (9.4-12.1)
[2022-08-01 22:34] LABS: Activated Partial Thrombo Time 35.5 Seconds (26.0-36.0)
[2022-08-01 22:38] LABS: BUN/Creatinine Ratio 40 (6-26); Blood Urea Nitrogen 21 mg/dL (6-20); Calcium 8.7 mg/dL (8.6-10.3); Carbon Dioxide 27 mEq/L (23-29); Chloride 105 mEq/L (98-107); Glucose 148 mg/dL (70-105); Magnesium 1.5 mg/dL (1.6-2.6); Osmolality,Calculated 294 (280-300); Potassium 4.4 mEq/L (3.5-5.1); Sodium 139 mEq/L (136-145); Troponin I < 0.03 ng/mL (< 0.04)
[2022-08-01] MEDS ORDERED: Ondansetron 4 MG/2 ML VIAL IVP PRN (23:21)
[2022-08-01] MEDS ORDERED: Naloxone 0.4 MG/ML INJ IVP PRN (23:21)
[2022-08-01] MEDS ORDERED: Nitroglycerin 0.4 MG TAB.SUBL SL PRN (23:25)
[2022-08-01] MEDS ORDERED: Dextrose Gel 15 GM/37.5 ML TUBE PO PRN ×2 (23:43)
[2022-08-01] MEDS ORDERED: D5% in Water 1,000 ML IVC PRN (23:43)
[2022-08-01] MEDS ORDERED: *HR* Dextrose 50 % in Water (Syg) 50 ML SYRINGE IVP PRN (23:43)
[2022-08-02] MEDS: Insulin LISPRO 300 UNITS/3 ML VIAL SUBQ SCH ×5 (01:20→22:58)
[2022-08-02] MEDS: Nystatin POWDER 30 GM BOTTLE TP SCH ×3 (01:40→21:05)
[2022-08-02] MEDS: Morphine Sulfate 2 MG/ML SYRINGE IVP PRN ×3 (02:35→15:33)
[2022-08-02] MEDS ORDERED: Magnesium Sulfate 1 GM/102 ML PIGGYBACK IVPB ONE (03:21)
[2022-08-02 05:24] LABS: Hemoglobin 10.3 g/dL (11.5-15.4); Mean Corpuscular HGB Conc 31.2 g/dL (31.6-35.5); Mean Corpuscular Hemoglobin 27.7 pg (28.0-33.3); Mean Corpuscular Volume 88.7 fL (83.0-100.0); Mean Platelet Volume 10.4 fL (9.4-12.4); Platelet Count 183 K/mcL (140-400); Red Blood Count 3.72 M/mcL (3.82-4.97); Red Cell Distribution Width 14.8 % (11.5-14.5); White Blood Count 8.4 K/mcL (4.3-11.1)
[2022-08-02] MEDS: *HR* Heparin 5,000 UNIT/ML VIAL SQ SCH ×3 (05:25→20:47)
[2022-08-02 05:44] LABS: BUN/Creatinine Ratio 40 (6-26); Blood Urea Nitrogen 19 mg/dL (6-20); Calcium 8.7 mg/dL (8.6-10.3); Carbon Dioxide 27 mEq/L (23-29); Chloride 107 mEq/L (98-107); Glucose 128 mg/dL (70-105); Osmolality,Calculated 290 (280-300); Potassium 3.8 mEq/L (3.5-5.1); Sodium 138 mEq/L (136-145)
[2022-08-02] MEDS ORDERED: Regadenoson 0.4 MG/5 ML SYRINGE IVP ONE (07:30)
[2022-08-02 17:39] LABS: Chol/HDL Ratio 3.8 (0-4.9)
[2022-08-02] MEDS ORDERED: risperiDONE 0.25 MG TABLET PO SCH (21:00)
[2022-08-03 00:49] LABS: Hematocrit 33.8 % (35.3-44.9); Hemoglobin 10.5 g/dL (11.5-15.4); Mean Corpuscular HGB Conc 31.1 g/dL (31.6-35.5); Mean Corpuscular Hemoglobin 27.4 pg (28.0-33.3); Mean Corpuscular Volume 88.3 fL (83.0-100.0); Mean Platelet Volume 10.4 fL (9.4-12.4); Platelet Count 172 K/mcL (140-400); Red Blood Count 3.83 M/mcL (3.82-4.97); Red Cell Distribution Width 14.8 % (11.5-14.5); White Blood Count 6.9 K/mcL (4.3-11.1)
[2022-08-03 01:08] LABS: BUN/Creatinine Ratio 33 (6-26); Blood Urea Nitrogen 19 mg/dL (6-20); Carbon Dioxide 27 mEq/L (23-29); Chloride 107 mEq/L (98-107); Glucose 151 mg/dL (70-105); Magnesium 1.6 mg/dL (1.6-2.6); Osmolality,Calculated 295 (280-300); Potassium 3.9 mEq/L (3.5-5.1); Sodium 140 mEq/L (136-145)
[2022-08-03] MEDS: *HR* Heparin 5,000 UNIT/ML VIAL SQ SCH ×2 (05:57→13:10)
[2022-08-03] MEDS: Insulin LISPRO 300 UNITS/3 ML VIAL SUBQ SCH ×3 (05:57→17:07)
[2022-08-03] MEDS: Morphine Sulfate 2 MG/ML SYRINGE IVP PRN ×2 (06:11→13:10)
[2022-08-03] MEDS: Nystatin POWDER 30 GM BOTTLE TP SCH (08:47)
[2022-08-03] MEDS ORDERED: Aspirin Enteric Coated 81 MG Tablet PO SCH (09:00)
[2022-08-03] MEDS ORDERED: risperiDONE 1 MG TABLET PO SCH (09:00)
[2022-08-03] MEDS ORDERED: Topiramate 25 MG TABLET PO SCH (09:00)
[2022-08-03 10:10] VITALS: TEMP 98.2
[2022-08-03 14:45] VITALS: BP 121/78; PULSE 77; O2SAT 94
[2022-08-03] MEDS ORDERED: Metoprolol XL (24 HR) Succ 25 MG TAB.ER.24H PO SCH (16:45)
[2022-08-03] MEDS ORDERED: Isosorbide MONOnitrate (24 HR) 30 MG TAB.ER.24H PO SCH (16:45)
== END 2022-08-03 18:09 | disposition home health service (06) | DRG 303 ==
LOC: 3BNU 21:05 → EMEROOARM 21:05 → SUATTDRO 23:53 → 3BNU 08-02 00:50
PROVIDERS: ADMIT Internal Medicine; ATTEND Internal Medicine